=== PATIENT | female | born 1940 | race Caucasian/White ===

== ENCOUNTER 2018-12-30 09:32 | Emergency (ER) | payer MEDICARE, OTHER ==
[~2018-12-30] VITALS: Ht 152.4 cm; Wt 56.7 kg
--- OUTSIDE RECORDS SUMMARY | 2018-12-30 09:38 | XMS REPORT | Continuity of Care Document ---
Author Organization Unknown Address Unknown Phone Unavailable Allergies There is no data. Medications There is no data. Problems There is no data. Procedures There is no data. Results Test Result Range CBC - 10/04/18 14:50 WHITE BLOOD CELL COUNT 6.8 Thousand/uL 3.8-10.8 RED BLOOD CELL COUNT 3.83 Million/uL 3.80-5.10 HEMOGLOBIN 11.7 g/dL 11.7-15.5 HEMATOCRIT 35.4 % 35.0-45.0 MCV 92.4 fL 80.0-100.0 MCH 30.5 pg 27.0-33.0 MCHC 33.1 g/dL 32.0-36.0 RDW 13.2 % 11.0-15.0 PLATELET COUNT 257 Thousand/uL 140-400 MPV 10.6 fL 7.5-12.5 ABSOLUTE NEUTROPHILS 3570 cells/uL 2308-4478 ABSOLUTE LYMPHOCYTES 2244 cells/uL 850-3900 ABSOLUTE MONOCYTES 646 cells/uL 200-950 ABSOLUTE EOSINOPHILS 272 cells/uL 15-500 ABSOLUTE BASOPHILS 68 cells/uL 0-200 NEUTROPHILS 52.5 % NRG LYMPHOCYTES 33.0 % NRG MONOCYTES 9.5 % NRG EOSINOPHILS 4.0 % NRG BASOPHILS 1.0 % NRG A1C - 10/27/18 08:11 HEMOGLOBIN A1c 5.8 % of total Hgb <5.7 CMP - 12/13/18 11:07 GLUCOSE 95 mg/dL 65-99 UREA NITROGEN (BUN) 29 mg/dL 7-25 CREATININE 1.13 mg/dL 0.60-0.93 eGFR NON-AFR. BRITISH 47 mL/min/1.73m2 > OR=60 eGFR 55 mL/min/1.73m2 > OR=60 BUN/CREATININE RATIO 26 (calc) 6-22 SODIUM 139 mmol/L 135-146 POTASSIUM 4.9 mmol/L 3.5-5.3 CHLORIDE 104 mmol/L 98-110 CARBON DIOXIDE 27 mmol/L 20-32 CALCIUM 9.6 mg/dL 8.6-10.4 PROTEIN, TOTAL 6.7 g/dL 6.1-8.1 ALBUMIN 4.3 g/dL 3.6-5.1 GLOBULIN 2.4 g/dL (calc) 1.9-3.7 ALBUMIN/GLOBULIN RATIO 1.8 (calc) 1.0-2.5 BILIRUBIN, TOTAL 0.4 mg/dL 0.2-1.2 ALKALINE PHOSPHATASE 102 U/L 33-130 AST 17 U/L 10-35 ALT 7 U/L 6-29 CBC - 12/13/18 11:07 WHITE BLOOD CELL COUNT 7.9 Thousand/uL 3.8-10.8 RED BLOOD CELL COUNT 3.63 Million/uL 3.80-5.10 HEMOGLOBIN 11.0 g/dL 11.7-15.5 HEMATOCRIT 33.9 % 35.0-45.0 MCV 93.4 fL 80.0-100.0 MCH 30.3 pg 27.0-33.0 MCHC 32.4 g/dL 32.0-36.0 RDW 13.4 % 11.0-15.0 PLATELET COUNT 243 Thousand/uL 140-400 MPV 10.2 fL 7.5-12.5 ABSOLUTE NEUTROPHILS 3681 cells/uL 2664-6714 ABSOLUTE LYMPHOCYTES 2994 cells/uL 850-3900 ABSOLUTE MONOCYTES 735 cells/uL 200-950 ABSOLUTE EOSINOPHILS 411 cells/uL 15-500 ABSOLUTE BASOPHILS 79 cells/uL 0-200 NEUTROPHILS 46.6 % NRG LYMPHOCYTES 37.9 % NRG MONOCYTES 9.3 % NRG EOSINOPHILS 5.2 % NRG BASOPHILS 1.0 % NRG Encounters ACCT No. Visit Date/Time Discharge Status Pt. Type Provider Facility Loc./Unit Complaint [id number] 12/28/2018 14:00:00 ACT Outpatient SELF, RY Rosario [facility] [id number] 12/13/2018 10:00:00 Document Registration [id number] 10/27/2018 08:00:00 Document Registration [id number] 10/04/2018 14:00:00 Document Registration
[2018-12-30 10:54] LABS: ALANINE AMINOTRANSFERASE 7 U/L (0-55); ALKALINE PHOSPHATASE 106 U/L (40-136); BILIRUBIN,TOTAL 0.3 MG/DL (0.1-1.0); BUN/CREATININE RATIO 15; CALCIUM 8.9 MG/DL (8.5-10.1); CARBON DIOXIDE 22 MMOL/L (21-32); CHLORIDE 103 MMOL/L (98-107); CREATININE SERUM 1.01 MG/DL (0.60-1.30); GFR ESTIMATED 53; GLUCOSE 129 MG/DL (70-105); POTASSIUM 4.2 MMOL/L (3.6-5.0); SODIUM 141 MMOL/L (135-145)
[2018-12-30 10:55] LABS: ALBUMIN 3.8 GM/DL (3.2-4.5); TOTAL PROTEIN 6.5 GM/DL (6.4-8.2)
--- NOTE | 2018-12-30 10:59 | Diagnostic Imaging Report ---
Patient History: Chest pain. Technique: Two views of the chest Comparison: None FINDINGS: The lung volumes are normal. No focal consolidation is seen. No large pleural effusion or pneumothorax is seen. The cardiomediastinal silhouette is normal in size and contour. There is calcified aortic atherosclerotic plaque. No acute osseous abnormality is seen. Prior kyphoplasty changes are seen in the lower thoracic spine. IMPRESSION: No acute pulmonary abnormality seen. Dictated by: Dictated on workstation # [id number]
[2018-12-30] MEDS ORDERED: morphine INJ 10 MG/ML 1ML (SYR OR VIAL) IM STA (11:58)
[2018-12-30] MEDS ORDERED: NITROGLYCERIN 0.4 MG SL TABS BTL 25'S SL ONE (12:00)
[2018-12-30] MEDS ORDERED: ASPIRIN 81 MG CHEW (CHILDREN'S ASA) PO ONE ×2 (12:00→13:00)
--- NOTE | 2018-12-30 12:48 | ED Chest Pain ---
General Chief Complaint: Chest Pain Stated Complaint: CHEST PAIN Nursing Triage Note: Has had chest pain for past two days that radiates into back. Is currently rated at 7/10 and is worse with laying down. States it has been fairly constant for the past two days but varies in intensity. Has hx of hiatal hernia and TN. Had heart cath last summer but only had 50% blockage and was not stented. 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 Nursing Sepsis Screen: No Definite Risk Source: patient History of Present Illness Date Seen by Provider: Dec 30, 2018 Time Seen by Provider: 11:15 Initial Comments The patient is a 78-year-old white female who presents with a chief complaint of central chest pain. She reported that this pain came on this morning on arising between 0800 and 0830. She relates that she has been having pains over the last 2 days but this seemed more severe. She reports that she had a heart attack last summer. She was evaluated in [place] and [facility] The blockages were reported at less than 50 percent and no interventions were made. She is currently taking a beta stacy, carvedilol, at a low dose and losartan as a statin.. She reports that she has GERD which has been controlled with Prevacid. She also stated that she had been having a degree of pain for at least 2 days but today's episode seemed stronger. There has been no diaphoresis or sense of palpitations. Timing/Duration: 1-2 days Severity/Quality: mild, moderate Location: central Radiation: back Activities at Onset: none Prior CP/Workup: cardiac cath Associated Symptoms: denies symptoms Allergies and Home Medications Allergies Coded Allergies: No Known Drug Allergies (Unverified , 12/30/18) Patient Home Medication List Home Medication List Reviewed: Yes Review of Systems Review of Systems Constitutional: see HPI EENTM: No Symptoms Reported Respiratory: No Symptoms Reported Cardiovascular: See HPI Gastrointestinal: Other (GERD) Genitourinary: No Symptoms Reported Musculoskeletal: no symptoms reported Skin: no symptoms reported Psychiatric/Neurological: No Symptoms Reported Endocrine: No Symptoms Reported Hematologic/Lymphatic: No Symptoms Reported Past Jomshaj-Xyjimh-Zpsbjv Hx Patient Social History Alcohol Use: Denies Use Recreational Drug Use: No Smoking Status: Former Smoker Type Used: Cigarettes Former Smoker, Quit: Dec 29, 1998 2nd Hand Smoke Exposure: No Recent Foreign Travel: No Contact w/Someone Who Travel: No Recent Infectious Disease Expo: No Recent Hopitalizations: No Physical Abuse: No Sexual Abuse: No Mistreated: No Fear: No Seasonal Allergies Seasonal Allergies: No Past Medical History Surgeries: Yes (heart cath; back surgery) Orthopedic Respiratory: No Cardiac: Yes ("broken heart syndrome") Heart Attack, Hypertension Neurological: No Genitourinary: No Gastrointestinal: Yes Hiatal Hernia Musculoskeletal: Yes Fibromyalgia, Back Injury Endocrine: Yes (states she is no longer diabetic) Diabetes, Non-Insulin dep HEENT: No Cancer: No Psychosocial: No Integumentary: No Blood Disorders: No Adverse Reaction/Blood Tranf: No Physical Exam Vital Signs Vital Signs - First Documented 12/30/18 09:35 Temp 97.8 Pulse 51 Resp 20 B/P (MAP) 140/65 (90) Pulse Ox 98 Capillary Refill : Less Than 3 Seconds Height, Weight, BMI Height: 5'0" Weight: 125lbs. oz. [id number]; BMI Method:Stated General Appearance: Anxious HEENT: Normal ENT Inspection Neck: Full Range of Motion, Normal Inspection, Non Tender Respiratory: Chest Non Tender, Lungs Clear, Normal Breath Sounds, No Accessory Muscle Use, No Respiratory Distress Cardiovascular: Regular Rate, Rhythm, No Edema, No Gallop, No JVD, No Murmur, Normal Peripheral Pulses Gastrointestinal: Normal Bowel Sounds, No Organomegaly, No Pulsatile Mass, Non Tender Extremity: Normal Capillary Refill, Normal Inspection, Normal Range of Motion, Non Tender, No Calf Tenderness, No Pedal Edema Neurologic/Psychiatric: Alert, Oriented x3, No Motor/Sensory Deficits, Normal Mood/Affect Skin: Normal Color, Warm/Dry Lymphatic: No Adenopathy Progress/Results/Core Measures Results/Orders Lab Results Laboratory Tests Test 12/30/18 10:25 12/30/18 14:21 Range/Units Sodium Level 141 135-145 MMOL/L Potassium Level 4.2 3.6-5.0 MMOL/L Chloride Level 103 98-107 MMOL/L Carbon Dioxide Level 22 21-32 MMOL/L Anion Gap 16 H 5-14 MMOL/L Blood Urea Nitrogen 15 7-18 MG/DL Creatinine 1.01 0.60-1.30 MG/DL Estimat Glomerular Filtration Rate 53 BUN/Creatinine Ratio 15 Glucose Level 129 H 70-105 MG/DL Calcium Level 8.9 8.5-10.1 MG/DL Corrected Calcium 9.1 8.5-10.1 MG/DL Total Bilirubin 0.3 0.1-1.0 MG/DL Aspartate Amino Transf (AST/SGOT) 19 5-34 U/L Alanine Aminotransferase (ALT/SGPT) 7 0-55 U/L Alkaline Phosphatase 106 40-136 U/L Troponin I < 0.30 < 0.30 <0.30 NG/ML Total Protein 6.5 6.4-8.2 GM/DL Albumin 3.8 3.2-4.5 GM/DL White Blood Count 5.8 4.3-11.0 10^3/uL Red Blood Count 3.20 L 4.35-5.85 10^6/uL Hemoglobin 10.0 L 11.5-16.0 G/DL Hematocrit 31 L 35-52 % Mean Corpuscular Volume 96 80-99 FL Mean Corpuscular Hemoglobin 31 25-34 PG Mean Corpuscular Hemoglobin Concent 33 32-36 G/DL Red Cell Distribution Width 13.9 10.0-14.5 % Platelet Count 244 130-400 10^3/uL Mean Platelet Volume 9.7 7.4-10.4 FL Neutrophils (%) (Auto) 45 42-75 % Lymphocytes (%) (Auto) 36 12-44 % Monocytes (%) (Auto) 11 0-12 % Eosinophils (%) (Auto) 7 0-10 % Basophils (%) (Auto) 1 0-10 % Neutrophils # (Auto) 2.6 1.8-7.8 X 10^3 Lymphocytes # (Auto) 2.1 1.0-4.0 X 10^3 Monocytes # (Auto) 0.6 0.0-1.0 X 10^3 Eosinophils # (Auto) 0.4 H 0.0-0.3 10^3/uL Basophils # (Auto) 0.1 0.0-0.1 10^3/uL Prothrombin Time 13.4 12.2-14.7 SEC INR Comment 1.0 0.8-1.4 My Orders Orders - DIANNE KENT MD Aspirin Chewable Tablet (Baby Aspirin Ch (12/30/18 12:00) Nitroglycerin 0.4 Mg Btl 25's (Nitrostat (12/30/18 12:00) Morphine Injection (Morphine Injection (12/30/18 11:58) Troponin I (12/30/18 12:07) Aspirin Chewable Tablet (Baby Aspirin Ch (12/30/18 13:00) Medications Given in ED Current Medications Medications Dose Ordered Sig/Eloy Route Start Time Stop Time Status Last Admin Dose Admin Aspirin 324 mg ONCE ONCE PO 12/30/18 13:00 12/30/18 13:01 DC 12/30/18 12:51 324 MG Nitroglycerin 1 BOTTLE ONCE ONCE SL 12/30/18 12:00 12/30/18 12:02 DC 12/30/18 12:51 0.4 MG Vital Signs/I&O 12/30/18 09:35 Temp 97.8 Pulse 51 Resp 20 B/P (MAP) 140/65 (90) Pulse Ox 98 Blood Pressure Mean: 90 Departure Communication (Admissions) 1159: Spoke to Dr. Peterson at [facility]. The patient's symptoms and findings were discussed. We elected to perform a four-hour troponin which is now returned and is still negative. The patient is pain-free at this moment. Accordingly he will agree to see her Wednesday in the office in follow-up. Impression Primary Impression: chest pain/non-myocardial Disposition: 01 HOME, SELF-CARE Condition: Improved Departure-Patient Inst. Referrals: SELFRY MD (PCP/Family) Primary Care Physician Patient Instructions: Chest Pain That Is Not Caused by the Heart (DC) Add. Discharge Instructions: All discharge instructions reviewed with patient and/or family. Voiced understand If symptoms increase return to the emergency room for reevaluation. Dr. Peterson a elevator constructor supervisor in [place] has agreed to see you in outpatient follow-up. He would ask that you call the office Wednesday for a Wednesday appointment. The cardiology office phone number is [phone] Take an 81 mg aspirin each morning. DIANNE KENT MD Dec 30, 2018 12:48
[2018-12-30 15:10] LABS: PROTHROMBIN TIME PATIENT 13.4 SEC (12.2-14.7)
[2018-12-30 15:16] LABS: HEMATOCRIT 31 % (35-52); MEAN CORPUSCULAR HEMOGLOBIN 31 PG (25-34); MEAN CORPUSCULAR HGB CONC 33 G/DL (32-36); MEAN CORPUSCULAR VOLUME 96 FL (80-99); MEAN PLATELET VOLUME 9.7 FL (7.4-10.4); NEUTROPHILS % (AUTO) 45 % (42-75); PLATELET COUNT 244 10^3/uL (130-400); RED CELL DISTRIBUTION WIDTH 13.9 % (10.0-14.5); WHITE BLOOD COUNT 5.8 10^3/uL (4.3-11.0)
[2018-12-30 15:17] LABS: BASOPHILS # (AUTO) 0.1 10^3/uL (0.0-0.1); BASOPHILS % (AUTO) 1 % (0-10); EOSINOPHILS # (AUTO) 0.4 10^3/uL (0.0-0.3); EOSINOPHILS % (AUTO) 7 % (0-10); LYMPHOCYTES # (AUTO) 2.1 X 10^3 (1.0-4.0); LYMPHOCYTES % (AUTO) 36 % (12-44); MONOCYTES # (AUTO) 0.6 X 10^3 (0.0-1.0); MONOCYTES % (AUTO) 11 % (0-12); NEUTROPHILS # (AUTO) 2.6 X 10^3 (1.8-7.8)
[2018-12-30 16:22] VITALS: BP 144/69
== END 2018-12-30 16:22 | disposition home or self-care (01) ==
LOC: ER FS 09:35
DX: R07.89 Other chest pain (principal); I10 Essential (primary) hypertension; E11.9 Type 2 diabetes mellitus without complications; I25.2 Old myocardial infarction; K21.9 Gastro-esophageal reflux disease without esophagitis; M79.7 Fibromyalgia; Z87.891 Personal history of nicotine dependence; Z95.9 Presence of cardiac and vascular implant and graft, unspecified
CPT/HCPCS: 36415; 71046; 80053; 84484; 85025; 85610; 93005; 96372

== ENCOUNTER 2019-05-10 10:27 | Observation (INO) | payer MEDICARE, OTHER ==
[~2019-05-10] VITALS: Ht 152.4 cm; Wt 63.0 kg
[2019-05-10] MEDS ORDERED: KETOROLAC 15 MG/ML VIAL IVP ONE (10:45)
[2019-05-10] MEDS ORDERED: fentaNYL INJECTION 100 MCG/2 ML AMP IVP ONE (10:45)
[2019-05-10] MEDS ORDERED: ONDANSETRON 4 MG/2 ML (SDV) Z0FRAN IVP ONE (10:45)
[2019-05-10] MEDS ORDERED: ASPIRIN 81 MG CHEW (CHILDREN'S ASA) PO ONE (10:45)
--- NOTE | 2019-05-10 10:54 | ED General ---
General Chief Complaint: Chest Pain Stated Complaint: CHEST PAIN; RAMAN ARM PAIN History of Present Illness Date Seen by Provider: May 10, 2019 Time Seen by Provider: 10:51 Initial Comments Patient presenting to emergency department for evaluation of chest pain that she says has been going on for 5 or 6 days. She describes it as a tightness in her chest that she initially said it comes and goes have her then she said it was constant. She says it is tightness across her bilateral lower chest and gets worse when she is up moving around or exerting herself and that I asked her if it gets better when she stops exerting herself and sits down and rests and she said no it still persists but maybe get slightly better so then she told me it was constant rather than comes and goes type pain. The pain radiates down her left arm and is not associated with any nausea vomiting shortness of breath or diaphoresis. She says she has no cough and it does not feel like a cold or viral syndrome. Patient says she is also having a pounding headache. She denies any weakness numbness tingling vision changes or other neurologic complaints. She says that she takes heart pills but does not know she has hypertension diabetes or high cholesterol. She says that she was diagnosed with a heart attack one year ago but on further questioning it sounds as if she had a broken heart syndrome and she had a heart catheterization done that showed a maximum of 50% occlusion and she required no stents. She is in no obvious distress with normal vital signs. Allergies and Home Medications Allergies Coded Allergies: No Known Drug Allergies (Unverified , 12/30/18) Patient Home Medication List Home Medication List Reviewed: Yes Review of Systems Review of Systems Constitutional: no symptoms reported EENTM: no symptoms reported Respiratory: no symptoms reported Cardiovascular: chest pain Gastrointestinal: no symptoms reported Genitourinary: no symptoms reported Musculoskeletal: no symptoms reported Skin: no symptoms reported Psychiatric/Neurological: Headache All Other Systems Reviewed Negative Unless Noted: Yes Past Shxtclu-Ehnmcm-Aalgxx Hx Patient Social History Type Used: Cigarettes Former Smoker, Quit: Dec 29, 1998 2nd Hand Smoke Exposure: No Recent Foreign Travel: No Recent Hopitalizations: No Seasonal Allergies Seasonal Allergies: No Past Medical History Surgeries: Yes (heart cath; back surgery) Orthopedic Respiratory: No Cardiac: Yes ("broken heart syndrome") Heart Attack, Hypertension Neurological: No Genitourinary: No Gastrointestinal: Yes Hiatal Hernia Musculoskeletal: Yes Fibromyalgia, Back Injury Endocrine: Yes (states she is no longer diabetic) Diabetes, Non-Insulin dep HEENT: No Cancer: No Psychosocial: No Integumentary: No Blood Disorders: No Adverse Reaction/Blood Tranf: No Physical Exam Vital Signs Vital Signs - First Documented Capillary Refill : Height, Weight, BMI Height: 5'0" Weight: 125lbs. oz. 56.861255ef; BMI Method:Stated General Appearance: No Apparent Distress, WD/WN Eyes: Bilateral Eye Normal Inspection HEENT: PERRL/EOMI Neck: Supple Respiratory: Lungs Clear, No Respiratory Distress Cardiovascular: Regular Rate, Rhythm Gastrointestinal: Non Tender, Soft Back: Normal Inspection Extremity: No Pedal Edema Neurologic/Psychiatric: Alert, Oriented x3, No Motor/Sensory Deficits Skin: Warm/Dry Progress/Results/Core Measures Suspected Sepsis SIRS Temperature: Pulse: Respiratory Rate: Laboratory Tests 05/10/19 10:30: White Blood Count 9.0 Blood Pressure / Mean: Laboratory Tests 05/10/19 10:30: Creatinine 0.81, INR Comment 0.9, Platelet Count 271, Total Bilirubin 0.4 Results/Orders Lab Results Laboratory Tests Test 05/10/19 10:30 05/10/19 11:05 Range/Units White Blood Count 9.0 4.3-11.0 10^3/uL Red Blood Count 3.73 L 4.35-5.85 10^6/uL Hemoglobin 11.4 L 11.5-16.0 G/DL Hematocrit 36 35-52 % Mean Corpuscular Volume 96 80-99 FL Mean Corpuscular Hemoglobin 31 25-34 PG Mean Corpuscular Hemoglobin Concent 32 32-36 G/DL Red Cell Distribution Width 12.8 10.0-14.5 % Platelet Count 271 130-400 10^3/uL Mean Platelet Volume 9.5 7.4-10.4 FL Neutrophils (%) (Auto) 62 42-75 % Lymphocytes (%) (Auto) 26 12-44 % Monocytes (%) (Auto) 8 0-12 % Eosinophils (%) (Auto) 3 0-10 % Basophils (%) (Auto) 1 0-10 % Neutrophils # (Auto) 5.6 1.8-7.8 X 10^3 Lymphocytes # (Auto) 2.4 1.0-4.0 X 10^3 Monocytes # (Auto) 0.7 0.0-1.0 X 10^3 Eosinophils # (Auto) 0.3 0.0-0.3 10^3/uL Basophils # (Auto) 0.1 0.0-0.1 10^3/uL Prothrombin Time 12.6 12.2-14.7 SEC INR Comment 0.9 0.8-1.4 Activated Partial Thromboplast Time 25 24-35 SEC D-Dimer 0.30 0.00-0.49 UG/ML Sodium Level 138 135-145 MMOL/L Potassium Level 4.5 3.6-5.0 MMOL/L Chloride Level 101 98-107 MMOL/L Carbon Dioxide Level 26 21-32 MMOL/L Anion Gap 11 5-14 MMOL/L Blood Urea Nitrogen 15 7-18 MG/DL Creatinine 0.81 0.60-1.30 MG/DL Estimat Glomerular Filtration Rate > 60 BUN/Creatinine Ratio 19 Glucose Level 155 H 70-105 MG/DL Calcium Level 9.3 8.5-10.1 MG/DL Corrected Calcium 9.0 8.5-10.1 MG/DL Magnesium Level 1.6 1.6-2.4 MG/DL Total Bilirubin 0.4 0.1-1.0 MG/DL Aspartate Amino Transf (AST/SGOT) 15 5-34 U/L Alanine Aminotransferase (ALT/SGPT) 8 0-55 U/L Alkaline Phosphatase 112 40-136 U/L Troponin I < 0.30 <0.30 NG/ML Pro-B-Type Natriuretic Peptide 1135.0 H <75.0 PG/ML Total Protein 7.2 6.4-8.2 GM/DL Albumin 4.4 3.2-4.5 GM/DL Lipase 22 8-78 U/L Urine Color DARK YELLOW Urine Clarity CLEAR Urine pH 5.5 5-9 Urine Specific [place] 1.025 H 1.016-1.022 Urine Protein NEGATIVE NEGATIVE Urine Glucose (UA) NEGATIVE NEGATIVE Urine Ketones NEGATIVE NEGATIVE Urine Nitrite NEGATIVE NEGATIVE Urine Bilirubin NEGATIVE NEGATIVE Urine Urobilinogen 0.2 < = 1.0 MG/DL Urine Leukocyte Esterase TRACE H NEGATIVE Urine RBC (Auto) NEGATIVE NEGATIVE Urine RBC NONE /HPF Urine WBC 10-25 H /HPF Urine Squamous Epithelial Cells 2-5 /HPF Urine Crystals NONE /LPF Urine Bacteria FEW H /HPF Urine Casts PRESENT /LPF Urine Hyaline Casts 10-25 H /LPF Urine Mucus MODERATE H /LPF Urine Culture Indicated YES My Orders Orders - CARLOS TRAORE DO Cbc With Automated Diff (05/10/19 10:35) Comprehensive Metabolic Panel (05/10/19 10:35) Fibrin Degradation Products (05/10/19 10:35) Ekg Tracing (05/10/19 10:35) Chest 1 View Ap/Pa Only (05/10/19 10:35) Lipase (05/10/19 10:35) Magnesium (05/10/19 10:35) Partial Thromboplastin Time (05/10/19 10:35) Probnp Fs (05/10/19 10:35) Protime With Inr (05/10/19 10:35) Troponin I Fs (05/10/19 10:35) Ua Culture If Indicated (05/10/19 10:35) Aspirin Chewable Tablet (Baby Aspirin Ch (05/10/19 10:45) Ondansetron Injection (Zofran Injectio (05/10/19 10:45) Ketorolac Injection (Toradol Injection) (05/10/19 10:45) Fentanyl Injection (Sublimaze Injection (05/10/19 10:45) Ct Head/Cervical Spine Wo (05/10/19 10:35) Urine Culture (05/10/19 11:05) Albuterol/Ipra Inhalation Soln (Duoneb I (05/10/19 11:45) Svn Small Volume Nebulizer (05/10/19 11:31) Lorazepam Injection (Ativan Injection) (05/10/19 11:45) Medications Given in ED Current Medications Medications Dose Ordered Sig/Eloy Route Start Time Stop Time Status Last Admin Dose Admin Albuterol/ Ipratropium 3 ml ONCE ONCE INH 05/10/19 11:45 05/10/19 11:46 DC 05/10/19 11:49 3 ML Aspirin 324 mg ONCE ONCE PO 05/10/19 10:45 05/10/19 10:46 DC 05/10/19 11:03 324 MG Fentanyl Citrate 50 mcg ONCE ONCE IVP 05/10/19 10:45 05/10/19 10:46 DC 05/10/19 11:02 50 MCG Ketorolac Tromethamine 15 mg ONCE ONCE IVP 05/10/19 10:45 05/10/19 10:46 DC 05/10/19 11:03 15 MG Lorazepam 0.5 mg ONCE ONCE IVP 05/10/19 11:45 05/10/19 11:46 DC 05/10/19 11:49 0.5 MG Ondansetron HCl 4 mg ONCE ONCE IVP 05/10/19 10:45 05/10/19 10:46 DC 05/10/19 11:03 4 MG Vital Signs/I&O 05/10/19 05/10/19 05/10/19 10:27 10:27 11:03 Temp 36.0 36.0 Pulse 54 Resp 17 B/P (MAP) 155/54 (87) Pulse Ox 98 O2 Delivery Room Air Room Air Capillary Refill : Progress Note : Progress Note Patient's with nonspecific chest pain and headache. I will check labs imaging treat symptoms and reassess. Patient's head CT was negative but her cervical spine does show degenerative disc disease and this is likely causing her left arm pain in my opinion. Chest pain is lower likelihood to be ACS however she does have a heart score equal to 4 which puts her in a moderate risk category. She has an elevated BNP as well with no prior comparison available. Patient says that her pain has persisted and may be worsened in her chest. I will try giving her a breathing treatment and Ativan to see if this improves her pain. Given she has intractable pain I spoke to Dr. Hill on the phone and she is going to admit patient for observation. I paged Dr. Dahl and am waiting for a page back to let him know she is on her way. An echocardiogram has been ordered. Departure Impression Primary Impression: Chest pain on exertion Additional Impressions: Elevated brain natriuretic peptide (BNP) level Headache Disposition: ADMITTED INPATIENT Condition: Stable Departure-Patient Inst. Referrals: SELF,RY TOLEDO (PCP/Family) Primary Care Physician CARLOS TRAORE DO May 10, 2019 10:54 POS
[2019-05-10 10:55] LABS: BASOPHILS % (AUTO) 1 % (0-10); EOSINOPHILS % (AUTO) 3 % (0-10); HEMATOCRIT 36 % (35-52); HEMOGLOBIN 11.4 G/DL (11.5-16.0); LYMPHOCYTES % (AUTO) 26 % (12-44); MEAN CORPUSCULAR HEMOGLOBIN 31 PG (25-34); MEAN CORPUSCULAR HGB CONC 32 G/DL (32-36); MEAN CORPUSCULAR VOLUME 96 FL (80-99); MEAN PLATELET VOLUME 9.5 FL (7.4-10.4); MONOCYTES % (AUTO) 8 % (0-12); PLATELET COUNT 271 10^3/uL (130-400); RED CELL DISTRIBUTION WIDTH 12.8 % (10.0-14.5)
[2019-05-10 10:56] LABS: NEUTROPHILS % (AUTO) 62 % (42-75)
[2019-05-10 10:58] LABS: BASOPHILS # (AUTO) 0.1 10^3/uL (0.0-0.1); EOSINOPHILS # (AUTO) 0.3 10^3/uL (0.0-0.3); LYMPHOCYTES # (AUTO) 2.4 X 10^3 (1.0-4.0); MONOCYTES # (AUTO) 0.7 X 10^3 (0.0-1.0); NEUTROPHILS # (AUTO) 5.6 X 10^3 (1.8-7.8)
--- NOTE | 2019-05-10 11:10 | Diagnostic Imaging Report ---
PROCEDURE: CT head and CT cervical spine without contrast. TECHNIQUE: Multiple contiguous axial images were obtained through the brain and cervical spine without the use of intravenous contrast. Sagittal and coronal reformations through the cervical spine were then performed. Auto Exposure Controls were utilized during the CT exam to meet ALARA standards for radiation dose reduction. INDICATION: Headache for 5 days. COMPARISON: None. FINDINGS: CT head: The ventricles and cortical sulci are age-appropriate. There is no midline shift or mass-effect. No acute intracranial hemorrhage is seen. There is no CT evidence of acute territorial ischemia. Scattered chronic microvascular disease is seen in the periventricular and subcortical white matter. No focal masses or collections are present. The calvarium is intact. The visualized paranasal sinuses are clear. CT cervical spine: No acute fracture or dislocation is seen in the cervical spine. No focal osseous lesions. There is reversal of the normal lordotic curvature, the cervical spine centered at the C4 level. Vertebral body heights are well-maintained. The craniocervical junction is well-maintained. Moderate to severe degenerative changes are seen in the cervical spine with disc osteophyte complexes and uncovertebral arthropathy. Soft tissues of the neck are unremarkable. IMPRESSION: 1. No hemorrhage or focal intra-axial mass. No CT evidence of large acute territorial ischemia. 2. No acute fracture or dislocation in the cervical spine. 3. Chronic microvascular disease in the periventricular and subcortical white matter. 4. Moderate to severe degenerative changes in the cervical spine with reversal of the normal lordotic curvature of the cervical spine centered at the C4 level. This results in at least moderate spinal canal stenosis at C4-C5 and C5-C6. Consider MRI of the cervical spine without contrast noted on a outpatient basis to further evaluate. Dictated by: Dictated on workstation # [id number]
[2019-05-10 11:14] LABS: ALKALINE PHOSPHATASE 112 U/L (40-136); BILIRUBIN,TOTAL 0.4 MG/DL (0.1-1.0); BUN/CREATININE RATIO 19; CALCIUM 9.3 MG/DL (8.5-10.1); CARBON DIOXIDE 26 MMOL/L (21-32); CHLORIDE 101 MMOL/L (98-107); CREATININE SERUM 0.81 MG/DL (0.60-1.30); GFR ESTIMATED > 60; GLUCOSE 155 MG/DL (70-105); MAGNESIUM 1.6 MG/DL (1.6-2.4); POTASSIUM 4.5 MMOL/L (3.6-5.0); SODIUM 138 MMOL/L (135-145)
[2019-05-10 11:15] LABS: ALANINE AMINOTRANSFERASE 8 U/L (0-55); ALBUMIN 4.4 GM/DL (3.2-4.5); TOTAL PROTEIN 7.2 GM/DL (6.4-8.2)
[2019-05-10 11:16] LABS: FIBRIN DEGRADATION PRODUCTS 0.3 UG/ML (0.00-0.49); INR 0.9 (0.8-1.4); PROTHROMBIN TIME PATIENT 12.6 SEC (12.2-14.7)
[2019-05-10 11:17] LABS: LIPASE 22 U/L (8-78)
[2019-05-10 11:17] LABS: CLARITY,URINE CLEAR; COLOR,URINE DARK YELLOW; GLUCOSE, URINE (UA) NEGATIVE (NEGATIVE); KETONES,URINE NEGATIVE (NEGATIVE); PH,URINE 5.5 (5-9); PROTEIN,URINE NEGATIVE (NEGATIVE)
[2019-05-10 11:18] LABS: BILIRUBIN,URINE NEGATIVE (NEGATIVE); NITRITE,URINE NEGATIVE (NEGATIVE)
[2019-05-10 11:23] LABS: LEUKOCYTE ESTERASE ,URINE TRACE (NEGATIVE)
[2019-05-10 11:24] LABS: BACTERIA,URINE FEW /HPF
--- NOTE | 2019-05-10 11:42 | Diagnostic Imaging Report ---
EXAMINATION: Chest 1 view. HISTORY: Chest pain for five days. COMPARISON: 12/30/2018. FINDINGS: The lung volumes are normal. No focal consolidation is seen. No large pleural effusion or pneumothorax is seen. The cardiomediastinal silhouette is enlarged. No acute osseous abnormality is seen. IMPRESSION: 1. Stable cardiomegaly. No overt pulmonary edema. Dictated by: Dictated on workstation # [id number]
[2019-05-10] MEDS ORDERED: LORazepam INJ 2 MG/ML (ATIVAN) VIAL IVP ONE (11:45)
[2019-05-10] MEDS ORDERED: RT-ALBUTEROL/IPRATROPIUM 3 ML (DUONEB) VIAL INH ONE (11:45)
--- NOTE | 2019-05-10 14:00 | NUR ---
LUIS ROJAS admitted to room 417-1, with an admitting diagnosis of CP, on 05/10/19 from [facility] via stretcher, accompanied by EMS .LUIS ROJAS introduced to surroundings, call light, bed controls, phone, TV, temperature control, lights, meal times, smoking policy, visitor policy, side rail policy, bathrooms and showers. Patient Rights given to patient in the handbook. LUIS ROJAS verbalizes understanding that [facility] is not responsible for the loss or damage to any personal effects or valuables that are kept in the patients posession during their hospitalization. LUIS ROJAS verbalizes understanding of Interdisciplinary Patient Education. Patient and/or family were informed about the Rapid Response Team and its purpose.
[2019-05-10 14:18] VITALS: BP 182/98
[2019-05-10] MEDS ORDERED: CATHETER FLUSH 10 ML SYR IV PRN (14:45)
[2019-05-10] MEDS ORDERED: FOLI0.4T2 PO (15:30)
[2019-05-10] MEDS ORDERED: CELE-63 PO (15:30)
[2019-05-10] MEDS ORDERED: CARV6.252 PO (15:30)
[2019-05-10] MEDS ORDERED: OXYC-464 PO (15:30)
[2019-05-10] MEDS ORDERED: LOSA25TA41 PO (15:30)
[2019-05-10] MEDS ORDERED: METF-397 PO (15:30)
[2019-05-10] MEDS ORDERED: ATOR40TA70 PO (15:30)
[2019-05-10] MEDS ORDERED: OMEP20TA7 PO (15:30)
[2019-05-10] MEDS ORDERED: FERR-84 PO (15:30)
[2019-05-10] MEDS ORDERED: LEVO100T7 PO (15:30)
[2019-05-10] MEDS ORDERED: GABA-488 PO (15:30)
[2019-05-10] MEDS ORDERED: ASPI-983 PO (15:30)
[2019-05-10] MEDS ORDERED: CYAN250010 PO (15:30)
--- NOTE | 2019-05-10 15:52 | NUR ---
SPOKE WITH PT (SHE HAD ALL HER BOTTLES) WELL GOING THRU THE EXT MED HIST TO COMPLETE THE MED REC. PT WAS ABLE TO TELL ME HOW/WHEN SHE TAKES ALL HER MEDS- THESE MATCHED THE BOTTLES AND FILL DATES ON THE EXT MED HISTORY. THE ONLY MED NOT ON THE EXT MED HISTORY IS LEVOTHYROXINE AND IT WAS FILLED 05-03-2019. CELEBREX: PT QUIT TAKING FOR A SHORT TIME, AND RECENTLY DECIDED TO START TAKING AGAIN. SHE HAS NOT DECIDED IF SHE IS GOING TO CONTINUE TO TAKE OR NOT. OTC MEDS: ASPIRIN IRON B-12 FOLIC ACID OMEPRAZOLE Addendum: 05/10/19 at 1557 by MICH KELLEY [facility] ALSO-PT BROUGHT IN A LARGE CONTAINER WITH ALL HER MEDICATIONS- SHE SAYS SHE DOES NOT TAKE THEM ALL- ALL THE ONES FROM [facility] (GREEN BOTTLES) AND THE ONES IN THE ZIP LOCK BAG. ALL OTHERS IN THE BOTTOM SHE SAYS THOSE ARE NOT ACTIVE MEDS.
[2019-05-10 16:38] VITALS: BP 136/77
[2019-05-10] MEDS ORDERED: KETOROLAC 30 MG/ML VIAL IVP PRN (17:30)
[2019-05-10] MEDS ORDERED: LIDOCAINE/ANTACID/DIPHENHYDRAMINE 1:1:1 PO PRN (17:30)
[2019-05-10] MEDS ORDERED: VISC LIDOCAINE/ANTACID/DIPHENHYDRAMINE 1:1:1 120 ML PO PRN ×3 (17:45)
[2019-05-10 20:39] VITALS: BP 144/78
[2019-05-10] MEDS: CATHETER FLUSH 10 ML SYR IV SCH (23:23)
[2019-05-10 23:37] VITALS: BP 148/77
[2019-05-11 03:13] VITALS: BP 134/68
[2019-05-11] MEDS: CATHETER FLUSH 10 ML SYR IV SCH ×3 (06:43→22:05)
[2019-05-11 07:16] LABS: BASOPHILS % (AUTO) 1 % (0-10); EOSINOPHILS # (AUTO) 0.3 10^3/uL (0.0-0.3); EOSINOPHILS % (AUTO) 4 % (0-10); HEMATOCRIT 33 % (35-52); HEMOGLOBIN 10.7 G/DL (11.5-16.0); LYMPHOCYTES % (AUTO) 27 % (12-44); MEAN CORPUSCULAR HEMOGLOBIN 31 PG (25-34); MEAN CORPUSCULAR HGB CONC 32 G/DL (32-36); MEAN CORPUSCULAR VOLUME 96 FL (80-99); MEAN PLATELET VOLUME 10.3 FL (7.4-10.4); MONOCYTES # (AUTO) 0.7 X 10^3 (0.0-1.0); MONOCYTES % (AUTO) 10 % (0-12); NEUTROPHILS # (AUTO) 4.4 X 10^3 (1.8-7.8); NEUTROPHILS % (AUTO) 59 % (42-75); PLATELET COUNT 228 10^3/uL (130-400); RED CELL DISTRIBUTION WIDTH 12.8 % (10.0-14.5); WHITE BLOOD COUNT 7.5 10^3/uL (4.3-11.0)
[2019-05-11 07:34] LABS: ALBUMIN 3.9 GM/DL (3.2-4.5); BILIRUBIN,TOTAL 0.4 MG/DL (0.1-1.0); CALCIUM 8.7 MG/DL (8.5-10.1); CREATININE SERUM 0.97 MG/DL (0.60-1.30); POTASSIUM 4.9 MMOL/L (3.6-5.0); TOTAL PROTEIN 6.3 GM/DL (6.4-8.2)
[2019-05-11 08:00] VITALS: BP 161/82
--- NOTE | 2019-05-11 09:11 | Consultation-Cardiology ---
HPI-Cardiology Cardiology Consultation: Date of Consultation 05/11/19 Time Seen by a Provider: 09:05 Date of Admission 05-10-19 Attending Physician Lu Hill MD Admitting Physician Javier Valero MD Consulting Physician Pavel Hernandez MD HPI: Chief Complaint: Chest pain Ms. Rojas is a 79 year old female admitted to [facility] from the [facility] ED with c/o CP which has been present for the last 5-6 days. She states she has had chronic chest pressure which radiates across her chest. It is constant, but worse at times with movement. She states it is mod. She reports feeling weak, shaky with exertion. She reports aching to her left arm. She states she has been under increased stress d/t her younger brother dying from cancer. She reports she has had a headache for the last 5-6 days as well. She is reporting abdominal discomfort as well. She reports she has continued chest discomfort, but states it is mild at this time. No c/o dyspnea, palpitations, syncope, near syncope or LE swelling. She reports she follows with a separations scientist at [facility] and saw him in February 2019. She reports she has had an approx 25 lb weight loss over the last year d/t poor appetite. She denies any n/v/d. She denies any fever or chills. Review of Systems-Cardiology Review of Systems Constitutional: No chills, No fever; malaise Eyes: No vision change Ears/Nose/Throat: No epistaxis, No recent hearing loss Respiratory: As described under HPI Cardiovascular: As described under HPI Gastrointestinal: No constipation, No diarrhea, No nausea, No vomiting Genitourinary: No hematuria Musculoskeletal: back pain, muscle pain, neck pain Skin: No rash on exposed areas, No ulcerations on exposed areas Psychiatric/Neurological: anxiety, depression; No seizure, No focal weakness, No syncope Hematologic: anemia All Other Systems Reviewed Negative Unless Noted: Yes RWK-Wnlgdz-Govser Hx Patient Social History Alcohol Use: Occasionally Uses Recreational Drug Use: No Smoking Status: Former Smoker Type Used: Cigarettes 2nd Hand Smoke Exposure: No Recent Foreign Travel: No Recent Infectious Disease Expo: No Physical Abuse Screen: No Sexual Abuse: No Past Medical History PMH As described under Assessment. Family Medical History Family Medical History: She denies any family h/o CAD. Allergies and Home Medications Allergies Coded Allergies: No Known Drug Allergies (Unverified , 12/30/18) Home Medications Aspirin 81 Mg Tablet.dr, 81 MG PO DAILY, (Reported) Atorvastatin Calcium 40 Mg Tablet, 40 MG PO HS, (Reported) Carvedilol 6.25 Mg Tablet, 6.25 MG PO BID, (Reported) Celecoxib 200 Mg Capsule, 400 MG PO DAILY PRN for INFLAMMATION, (Reported) Cyanocobalamin (Vitamin B-12) 2,500 Mcg Tablet, 2,500 MCG PO HS, (Reported) Ferrous Sulfate 325 Mg Tablet, 325 MG PO HS, (Reported) Folic Acid 0.4 Mg Tablet, 0.4 MG PO HS, (Reported) Gabapentin 300 Mg Capsule, 300 MG PO TID, (Reported) Levothyroxine Sodium 100 Mcg Tablet, 100 MCG PO DAILY, (Reported) Losartan Potassium 25 Mg Tablet, 25 MG PO HS, (Reported) Metformin HCl 500 Mg Tablet, 500 MG PO BID WITH MEALS, (Reported) Omeprazole 20 Mg Tablet.dr, 20 MG PO HS, (Reported) Oxycodone HCl/Acetaminophen 1 Each Tablet, 1 TAB PO Q4H PRN for PAIN-MODERATE (5-7), (Reported) Patient Home Medication List Home Medication List Reviewed: Yes Physical Exam-Cardiology Physical Exam Vital Signs/I&O 05/11/19 05/12/19 05/12/19 05/12/19 23:20 01:00 04:20 06:47 Temp 36.7 36.5 Pulse 67 68 58 61 Resp 18 18 B/P (MAP) 110/62 (78) 145/70 (95) Pulse Ox 93 94 O2 Delivery Room Air Room Air 05/12/19 05/12/19 05/12/19 08:00 08:19 08:25 Pulse 54 88 Resp 18 18 B/P (MAP) 182/88 (119) 145/82 (103) Pulse Ox 95 95 O2 Delivery Room Air Room Air Room Air 05/12/19 00:00 Intake Total 1540 ml Output Total 1500 ml Balance 40 ml Capillary Refill : Less Than 3 Seconds Constitutional: AAO x 3, well-nourished HEENT: PERRL, hearing is well preserved, oral hygience is good Neck: No carotid bruit; carotid pulses are 2 + bilaterally Respiratory: No accessory muscle use, No respiratory distress; chest expansion is symmetric, chest is bilaterally symmetric, lungs clear to auscultation Cardiovascular: regular rate-rhythm; No JVD; S1 and S2 Gastrointestinal: tender (epigastric), soft, round; No guarding; audible bowel sounds Extremities: no lower extremity edema bilateral Neurologic/Psychiatric: grossly intact Skin: No rash on exposed areas, No ulcerations on exposed areas Data Review Labs Laboratory Tests 05/12/19 04:35: White Blood Count 8.1, Red Blood Count 3.78L, Hemoglobin 11.6, Hematocrit 36, Mean Corpuscular Volume 94, Mean Corpuscular Hemoglobin 31, Mean Corpuscular Hemoglobin Concent 33, Red Cell Distribution Width 13.3, Platelet Count 253, Mean Platelet Volume 9.7, Sodium Level 139, Potassium Level 4.7, Chloride Level 105, Carbon Dioxide Level 22, Anion Gap 12, Blood Urea Nitrogen 20H, Creatinine 0.79, Estimat Glomerular Filtration Rate > 60, BUN/Creatinine Ratio 25, Glucose Level 126H, Calcium Level 9.3, Magnesium Level 1.6, Triglycerides Level 286H, Cholesterol Level 182, LDL Cholesterol Direct 78, VLDL Cholesterol 57H, HDL Cholesterol 63H, Thyroid Stimulating Hormone (TSH) 0.01L Microbiology 05/10/19 Urine Culture - Final, Complete Escherichia coli Radiology NAME: LUIS ROJAS [facility] REC#: [id number] PT STATUS: REG ER : 1940 PHYSICIAN: CARLOS TRAORE DO ADMIT DATE: 05/10/19/ER FS Signed Date of Exam:05/10/19 CT HEAD/CERVICAL SPINE WO PROCEDURE: CT head and CT cervical spine without contrast. TECHNIQUE: Multiple contiguous axial images were obtained through the brain and cervical spine without the use of intravenous contrast. Sagittal and coronal reformations through the cervical spine were then performed. Auto Exposure Controls were utilized during the CT exam to meet ALARA standards for radiation dose reduction. INDICATION: Headache for 5 days. COMPARISON: None. FINDINGS: CT head: The ventricles and cortical sulci are age-appropriate. There is no midline shift or mass-effect. No acute intracranial hemorrhage is seen. There is no CT evidence of acute territorial ischemia. Scattered chronic microvascular disease is seen in the periventricular and subcortical white matter. No focal masses or collections are present. The calvarium is intact. The visualized paranasal sinuses are clear. CT cervical spine: No acute fracture or dislocation is seen in the cervical spine. No focal osseous lesions. There is reversal of the normal lordotic curvature, the cervical spine centered at the C4 level. Vertebral body heights are well-maintained. The craniocervical junction is well-maintained. Moderate to severe degenerative changes are seen in the cervical spine with disc osteophyte complexes and uncovertebral arthropathy. Soft tissues of the neck are unremarkable. IMPRESSION: 1. No hemorrhage or focal intra-axial mass. No CT evidence of large acute territorial ischemia. 2. No acute fracture or dislocation in the cervical spine. 3. Chronic microvascular disease in the periventricular and subcortical white matter. 4. Moderate to severe degenerative changes in the cervical spine with reversal of the normal lordotic curvature of the cervical spine centered at the C4 level. This results in at least moderate spinal canal stenosis at C4-C5 and C5-C6. Consider MRI of the cervical spine without contrast noted on a outpatient basis to further evaluate. Dictated by: Dictated on workstation # [id number] Dict: 05/10/19 1106 Trans: 05/10/19 1121 CV [id number] Interpreted by: JUANI SUÁREZ DO Electronically signed by: JUANI SUÁREZ DO 05/10/19 1121 NAME: LUIS ROJAS [facility] REC#: [id number] PT STATUS: REG ER : 1940 PHYSICIAN: CARLOS TRAORE DO ADMIT DATE: 05/10/19/ER FS Signed Date of Exam:05/10/19 CHEST 1 VIEW AP/PA ONLY EXAMINATION: Chest 1 view. HISTORY: Chest pain for five days. COMPARISON: 12/30/2018. FINDINGS: The lung volumes are normal. No focal consolidation is seen. No large pleural effusion or pneumothorax is seen. The cardiomediastinal silhouette is enlarged. No acute osseous abnormality is seen. IMPRESSION: 1. Stable cardiomegaly. No overt pulmonary edema. Dictated by: Dictated on workstation # [id number] Dict: 05/10/19 1138 Trans: 05/10/197 [id number] Interpreted by: JUANI SUÁREZ DO Electronically signed by: JUANI SUÁREZ DO 05/10/19 1207 ECG Impression ECG Initial ECG Rhythm: Normal Sinus A/P-Cardiology Assessment/Admission Diagnosis Chest pain of undetermined etiology Acute on chronic CHF H/O CAD - reports CO in November 2017 - cardiac cath at [facility] which she states showed 50% blockages - no stents or angioplasty at that time UTI - management per medical services HTN HLD - statin tx COPD Asthma Hypothyroidism DM H/O chronic anemia - iron replacement GERD Hiatal hernia Fibromyalgia Diverticulitis Chronic back pain Headache - management per medical services Discussion and Recomendations Chest pain of undetermined etiology - no evidence of ACS thus far Acute on chronic CHF - Echocardiogram today - continue diuretics Uncontrolled HTN - continue home medications Continue ASA d/t known h/o CAD PPI Management of UTI per medical services Request records from [facility] Management of headache is per medical services We would like to thank medical services for this consult Further recs will be based on her hospital course Clinical Quality Measures AMI/AHF: ASA po Prior to arrival: No DVT/VTE Risk/Contraindication: Risk Factor Score Per Nursin RFS Level Per Nursing on Admit: 4+=Very High TAWNY SCHMIDT May 11, 2019 09:11 POS
[2019-05-11] MEDS: CARVEDILOL 6.25 MG (COREG) TAB PO SCH ×2 (10:14→20:00)
[2019-05-11 12:00] VITALS: BP 133/73
--- NOTE | 2019-05-11 13:00 | Consultation-Cardiology ---
HPI-Cardiology Cardiology Consultation: Date of Consultation 05/11/19 Time Seen by a Provider: 09:30 Date of Admission Attending Physician Lu Hill MD Admitting Physician Javier Valero MD Consulting Physician JENNIFER KLEIN MD, MA, FACP, FACC, FSCAI, CCDS HPI: Chief Complaint: CC: Chest pain HPI Ms. Taylor is a 79 year old female admitted to [facility] from the [facility] ED with c/o CP which has been present for the last 5-6 days. She states she has had chronic chest pressure which radiates across her chest. It is constant, but worse at times with movement. She states it is mod. She reports feeling weak, shaky with exertion. She reports aching to her left arm. She states she has been under increased stress d/t her younger brother dying from cancer. She reports she has had a headache for the last 5-6 days as well. She is reporting abdominal discomfort as well. She reports she has continued chest discomfort, but states it is mild at this time. No c/o dyspnea, palpitations, syncope, near syncope or LE swelling. She reports she follows with a geophysical operator at [facility] and saw him in February 2019. She reports she has had an approx 25 lb weight loss over the last year d/t poor appetite. She denies any n/v/d. She denies any fever or chills. Review of Systems-Cardiology Review of Systems Constitutional: No chills, No fever; malaise Eyes: No vision change Ears/Nose/Throat: No epistaxis, No recent hearing loss Respiratory: As described under HPI Cardiovascular: As described under HPI Gastrointestinal: No constipation, No diarrhea, No nausea, No vomiting Genitourinary: No hematuria Musculoskeletal: back pain, muscle pain, neck pain Skin: No rash on exposed areas, No ulcerations on exposed areas Psychiatric/Neurological: anxiety, depression; No seizure, No focal weakness, No syncope Hematologic: anemia All Other Systems Reviewed Negative Unless Noted: Yes TIX-Oybiai-Qagfhj Hx Patient Social History Alcohol Use: Occasionally Uses Recreational Drug Use: No Smoking Status: Former Smoker Type Used: Cigarettes 2nd Hand Smoke Exposure: No Recent Foreign Travel: No Recent Infectious Disease Expo: No Physical Abuse Screen: No Sexual Abuse: No Past Medical History PMH As described under Assessment. Family Medical History Family Medical History: She denies any family h/o CAD. Allergies and Home Medications Allergies Coded Allergies: No Known Drug Allergies (Unverified , 12/30/18) Home Medications Aspirin 81 Mg Tablet.dr, 81 MG PO DAILY, (Reported) Atorvastatin Calcium 40 Mg Tablet, 40 MG PO HS, (Reported) Carvedilol 6.25 Mg Tablet, 6.25 MG PO BID, (Reported) Celecoxib 200 Mg Capsule, 400 MG PO DAILY PRN for INFLAMMATION, (Reported) Cyanocobalamin (Vitamin B-12) 2,500 Mcg Tablet, 2,500 MCG PO HS, (Reported) Ferrous Sulfate 325 Mg Tablet, 325 MG PO HS, (Reported) Folic Acid 0.4 Mg Tablet, 0.4 MG PO HS, (Reported) Gabapentin 300 Mg Capsule, 300 MG PO TID, (Reported) Levothyroxine Sodium 100 Mcg Tablet, 100 MCG PO DAILY, (Reported) Losartan Potassium 25 Mg Tablet, 25 MG PO HS, (Reported) Metformin HCl 500 Mg Tablet, 500 MG PO BID WITH MEALS, (Reported) Omeprazole 20 Mg Tablet.dr, 20 MG PO HS, (Reported) Oxycodone HCl/Acetaminophen 1 Each Tablet, 1 TAB PO Q4H PRN for PAIN-MODERATE (5-7), (Reported) Patient Home Medication List Home Medication List Reviewed: Yes Physical Exam-Cardiology Physical Exam Vital Signs/I&O 05/11/19 05/11/19 05/11/19 05/11/19 01:00 03:13 07:00 08:00 Temp 36.3 37.2 Pulse 70 57 65 57 Resp 20 20 B/P (MAP) 134/68 (90) 161/82 (108) Pulse Ox 95 97 O2 Delivery Room Air Room Air 05/11/19 00:00 Intake Total 644 ml Balance 644 ml Capillary Refill : Less Than 3 Seconds Constitutional: AAO x 3, well-nourished HEENT: PERRL, hearing is well preserved, oral hygience is good Neck: No carotid bruit; carotid pulses are 2 + bilaterally Respiratory: No accessory muscle use, No respiratory distress; chest expansion is symmetric, chest is bilaterally symmetric, lungs clear to auscultation Cardiovascular: regular rate-rhythm; No JVD; S1 and S2 Gastrointestinal: tender (epigastric), soft, round; No guarding; audible bowel sounds Extremities: no lower extremity edema bilateral Neurologic/Psychiatric: grossly intact Skin: No rash on exposed areas, No ulcerations on exposed areas Data Review Labs Laboratory Tests 05/10/19 14:50: Troponin I < 0.028 05/11/19 05:53: White Blood Count 7.5, Red Blood Count 3.49L, Hemoglobin 10.7L, Hematocrit 33L, Mean Corpuscular Volume 96, Mean Corpuscular Hemoglobin 31, Mean Corpuscular Hemoglobin Concent 32, Red Cell Distribution Width 12.8, Platelet Count 228, Mean Platelet Volume 10.3, Neutrophils (%) (Auto) 59, Lymphocytes (%) (Auto) 27, Monocytes (%) (Auto) 10, Eosinophils (%) (Auto) 4, Basophils (%) (Auto) 1, Neutrophils # (Auto) 4.4, Lymphocytes # (Auto) 2.0, Monocytes # (Auto) 0.7, Eosinophils # (Auto) 0.3, Basophils # (Auto) 0.0, Sodium Level 140, Potassium Level 4.9, Chloride Level 104, Carbon Dioxide Level 24, Anion Gap 12, Blood Urea Nitrogen 22H, Creatinine 0.97, Estimat Glomerular Filtration Rate 56, BUN/Creatinine Ratio 23, Glucose Level 133H, Calcium Level 8.7, Corrected Calcium 8.8, Total Bilirubin 0.4, Aspartate Amino Transf (AST/SGOT) 15, Alanine Aminotransferase (ALT/SGPT) 8, Alkaline Phosphatase 94, Total Protein 6.3L, Albumin 3.9 Microbiology 05/10/19 Urine Culture - Preliminary, Resulted Gram Negative Bacillus 1 Laboratory Tests 05/10/19 10:30 05/11/19 05:53 A/P-Cardiology Assessment/Admission Diagnosis Chest pain of undetermined etiology, no evidence of ACS Acute CHF, clinically mild, etiology unestablished H/O CAD - reports ID in November 2017 - cardiac cath at [facility] which she states showed 50% blockages - no stents or angioplasty at that time UTI - management per Medical services HTN HLD - statin tx COPD Asthma Hypothyroidism DM H/O chronic anemia - iron replacement GERD Hiatal hernia Fibromyalgia Diverticulitis Chronic back pain Headache - management per Medical Services Discussion and Recomendations * Echo to eval EF and wall motion * MPI to eval for cor ischemia * Treat CHF with diuretics * Resume home meds for htn * Continue ASA d/t known h/o CAD * PPI for known GERD and HH * Management of UTI per medical services * Request records from [facility] * Management of headache is per Medical services * We would like to thank Medical services for this consult Clinical Quality Measures AMI/AHF: ASA po Prior to arrival: No DVT/VTE Risk/Contraindication: Risk Factor Score Per Nursin RFS Level Per Nursing on Admit: 4+=Very High JENNIFER KLEIN MD FACP FAC CCDS May 11, 2019 13:00 POS
--- NOTE | 2019-05-11 15:52 | History & Physical ---
HPI History of Present Illness: 79 yo F that presented to ER with chest pain. States that the pain started about 1 week ago. States that it is constant and nothing has helped the pain including interventions in the ER. States that she has broken heart last year and follows with cardiology in [place]. Denies any radiation. Characterizes pain as a cons tant band like pain around her chest. Denies any sweating or shortness of breath associated with the pain. Denies any previous stents. States that this pain is different then the pain she had 1 year ago. Source: patient Exam Limitations: no limitations Date seen by provider: May 11, 2019 Time Seen by Provider: 10:00 Attending Physician No Hill MD PCP Javier Valero MD Consult Date of Admission May 10, 2019 at 12:46 Home Medications Home Medications Reviewed patient Home Medication Reconciliation performed by pharmacy medication reconciliations licensed veterinary technician and/or nursing. Patients Allergies have been reviewed. Allergies Coded Allergies: No Known Drug Allergies (Unverified , 12/30/18) PGR-Kzxbpz-Htylny Hx Patient Social History Alcohol Use: Occasionally Uses Recreational Drug Use: No Smoking Status: Former Smoker Type Used: Cigarettes 2nd Hand Smoke Exposure: No Recent Foreign Travel: No Contact w/other who traveled: No Recent Hopitalizations: No Recent Infectious Disease Expo: No Physical Abuse Screen: No Sexual Abuse: No Past Medical History HTN NIDDM HLD GERD Chronic anemia hypothyroidism Family Medical History Significant Family History: No Pertinent Family Hx Review of Systems (CHC) Constitutional: no symptoms reported; No chills, No fever EENTM: no symptoms reported; No mouth pain, No nose congestion, No throat pain Respiratory: no symptoms reported; No cough, No dyspnea on exertion, No orthopnea, No short of breath Cardiovascular: chest pain; No edema, No palpitations Gastrointestinal: abdominal pain; No constipation, No diarrhea, No dysphagia; loss of appetite; No nausea, No vomiting Genitourinary: no symptoms reported; No dysuria, No frequency, No hematuria : No Musculoskeletal: back pain (chronic) Skin: no symptoms reported; No lesions, No rash Psychiatric/Neurological: Headache; Denies Numbness, Denies Weakness Reviewed Test Results Reviewed Test Results Lab Laboratory Tests Test 05/11/19 05:53 Range/Units White Blood Count 7.5 4.3-11.0 10^3/uL Red Blood Count 3.49 L 4.35-5.85 10^6/uL Hemoglobin 10.7 L 11.5-16.0 G/DL Hematocrit 33 L 35-52 % Mean Corpuscular Volume 96 80-99 FL Mean Corpuscular Hemoglobin 31 25-34 PG Mean Corpuscular Hemoglobin Concent 32 32-36 G/DL Red Cell Distribution Width 12.8 10.0-14.5 % Platelet Count 228 130-400 10^3/uL Mean Platelet Volume 10.3 7.4-10.4 FL Neutrophils (%) (Auto) 59 42-75 % Lymphocytes (%) (Auto) 27 12-44 % Monocytes (%) (Auto) 10 0-12 % Eosinophils (%) (Auto) 4 0-10 % Basophils (%) (Auto) 1 0-10 % Neutrophils # (Auto) 4.4 1.8-7.8 X 10^3 Lymphocytes # (Auto) 2.0 1.0-4.0 X 10^3 Monocytes # (Auto) 0.7 0.0-1.0 X 10^3 Eosinophils # (Auto) 0.3 0.0-0.3 10^3/uL Basophils # (Auto) 0.0 0.0-0.1 10^3/uL Sodium Level 140 135-145 MMOL/L Potassium Level 4.9 3.6-5.0 MMOL/L Chloride Level 104 98-107 MMOL/L Carbon Dioxide Level 24 21-32 MMOL/L Anion Gap 12 5-14 MMOL/L Blood Urea Nitrogen 22 H 7-18 MG/DL Creatinine 0.97 0.60-1.30 MG/DL Estimat Glomerular Filtration Rate 56 BUN/Creatinine Ratio 23 Glucose Level 133 H 70-105 MG/DL Calcium Level 8.7 8.5-10.1 MG/DL Corrected Calcium 8.8 8.5-10.1 MG/DL Total Bilirubin 0.4 0.1-1.0 MG/DL Aspartate Amino Transf (AST/SGOT) 15 5-34 U/L Alanine Aminotransferase (ALT/SGPT) 8 0-55 U/L Alkaline Phosphatase 94 40-136 U/L Total Protein 6.3 L 6.4-8.2 GM/DL Albumin 3.9 3.2-4.5 GM/DL Radiology NAME: LUIS ROJAS MED REC#: [id number] PT STATUS: REG ER : 1940 PHYSICIAN: CARLOS TRAORE DO ADMIT DATE: 05/10/19/ER FS Signed Date of Exam:05/10/19 CT HEAD/CERVICAL SPINE WO PROCEDURE: CT head and CT cervical spine without contrast. TECHNIQUE: Multiple contiguous axial images were obtained through the brain and cervical spine without the use of intravenous contrast. Sagittal and coronal reformations through the cervical spine were then performed. Auto Exposure Controls were utilized during the CT exam to meet ALARA standards for radiation dose reduction. INDICATION: Headache for 5 days. COMPARISON: None. FINDINGS: CT head: The ventricles and cortical sulci are age-appropriate. There is no midline shift or mass-effect. No acute intracranial hemorrhage is seen. There is no CT evidence of acute territorial ischemia. Scattered chronic microvascular disease is seen in the periventricular and subcortical white matter. No focal masses or collections are present. The calvarium is intact. The visualized paranasal sinuses are clear. CT cervical spine: No acute fracture or dislocation is seen in the cervical spine. No focal osseous lesions. There is reversal of the normal lordotic curvature, the cervical spine centered at the C4 level. Vertebral body heights are well-maintained. The craniocervical junction is well-maintained. Moderate to severe degenerative changes are seen in the cervical spine with disc osteophyte complexes and uncovertebral arthropathy. Soft tissues of the neck are unremarkable. IMPRESSION: 1. No hemorrhage or focal intra-axial mass. No CT evidence of large acute territorial ischemia. 2. No acute fracture or dislocation in the cervical spine. 3. Chronic microvascular disease in the periventricular and subcortical white matter. 4. Moderate to severe degenerative changes in the cervical spine with reversal of the normal lordotic curvature of the cervical spine centered at the C4 level. This results in at least moderate spinal canal stenosis at C4-C5 and C5-C6. Consider MRI of the cervical spine without contrast noted on a outpatient basis to further evaluate. Dictated by: Dictated on workstation # [id number] Dict: 05/10/196 Trans: 05/10/19 112 CV [id number] Interpreted by: JUANI SUÁREZ DO Electronically signed by: JUANI SUÁREZ DO 05/10/19 112 NAME: LUIS ROJAS [facility] REC#: [id number] PT STATUS: REG ER : 1940 PHYSICIAN: CARLOS TRAORE DO ADMIT DATE: 05/10/19/ER FS Signed Date of Exam:05/10/19 CHEST 1 VIEW AP/PA ONLY EXAMINATION: Chest 1 view. HISTORY: Chest pain for five days. COMPARISON: 12/30/2018. FINDINGS: The lung volumes are normal. No focal consolidation is seen. No large pleural effusion or pneumothorax is seen. The cardiomediastinal silhouette is enlarged. No acute osseous abnormality is seen. IMPRESSION: 1. Stable cardiomegaly. No overt pulmonary edema. Dictated by: Dictated on workstation # [id number] Dict: 05/10/19 1138 Trans: 05/10/19 1207 [id number] Interpreted by: JUANI SUÁREZ DO Electronically signed by: JUANI SUÁREZ DO 05/10/19 1207 Physical Exam-(CHC) Physical Exam Vital Signs VS - Last 72 Hours, by Label POS 05/10/19 05/10/19 05/10/19 05/10/19 10:27 10:27 11:03 13:15 Temp 36.0 36.0 36.0 Pulse 54 57 Resp 17 17 B/P (MAP) 155/54 (87) 137/55 (87) Pulse Ox 98 98 O2 Delivery Room Air Room Air Room Air 05/10/19 05/10/19 05/10/19 05/10/19 14:18 15:10 15:20 16:38 Temp 36.2 36.4 Pulse 59 74 74 Resp 20 18 B/P (MAP) 182/98 136/77 (96) Pulse Ox 97 97 97 O2 Delivery Room Air Room Air Room Air 05/10/19 05/10/19 05/10/19 05/10/19 19:00 20:00 20:39 23:37 Temp 36.5 36.3 Pulse 60 63 61 Resp 22 20 B/P (MAP) 144/78 (100) 148/77 (100) Pulse Ox 97 93 O2 Delivery Room Air Room Air Room Air 05/11/19 05/11/19 05/11/19 05/11/19 01:00 03:13 07:00 08:00 Temp 36.3 Pulse 70 57 65 Resp 20 B/P (MAP) 134/68 (90) Pulse Ox 95 O2 Delivery Room Air Room Air 05/11/19 05/11/19 05/11/19 08:00 12:00 13:00 Temp 37.2 37.2 Pulse 57 59 63 Resp 20 20 B/P (MAP) 161/82 (108) 133/73 (93) Pulse Ox 97 95 O2 Delivery Room Air Room Air Capillary Refill : Less Than 3 SecondsLess Than 3 Seconds General Appearance: WD/WN, no apparent distress, thin (elderly female) HEENT: PERRL/EOMI Neck: non-tender, full range of motion, supple Respiratory: chest non-tender, lungs clear, normal breath sounds, no respiratory distress, no accessory muscle use Cardiovascular: normal peripheral pulses, regular rate, rhythm, no edema, no murmur Gastrointestinal: normal bowel sounds, non tender, soft, no organomegaly Back: no CVA tenderness, no vertebral tenderness Extremities: normal range of motion, non-tender, normal inspection, no pedal edema, no calf tenderness Neurologic/Psychiatric: nutritionists II-XII nml as tested, no motor/sensory deficits, alert, normal mood/affect, oriented x 3 Skin: normal color, warm/dry Lymphatic: no adenopathy Assessment/Plan Assessment/Plan Admission Status: Observation (1) Atypical chest pain Status: Acute Assessment & Plan: - Cardiology consulted, appreciate recommendations, Echo today showed diastolic CHF, stress test pending tomorrow (2) Acute on chronic diastolic (congestive) heart failure Status: Acute (3) UTI (urinary tract infection) Status: Acute Assessment & Plan: - Started on Rocephin D1 Qualifiers: Qualified Codes: N30.01 - Acute cystitis with hematuria (4) HTN (hypertension) Status: Chronic Assessment & Plan: - Restarted home meds Qualifiers: Qualified Codes: I10 - Essential (primary) hypertension (5) HLD (hyperlipidemia) Status: Chronic Assessment & Plan: - Statin Qualifiers: Qualified Codes: E78.2 - Mixed hyperlipidemia (6) Hypothyroidism Status: Chronic Assessment & Plan: - TSH pending Qualifiers: Qualified Codes: E03.9 - Hypothyroidism, unspecified (7) Normocytic anemia Status: Chronic Assessment & Plan: - Take Iron replacement at home, iron studies pending (8) Non-insulin treated type 2 diabetes mellitus Status: Chronic Assessment & Plan: - Holding metformin due to possible need for contrast, SSI (9) DVT prophylaxis Status: Acute Assessment & Plan: - Lovenox Clinical Quality Measures AMI/AHF: ASA po Prior to arrival: No DVT/VTE Risk/Contraindication: Risk Factor Score Per Nursin RFS Level Per Nursing on Admit: 4+=Very High Copy Copies To 1: SELF,NO MCGILL MD, MD May 11, 2019 15:52 POS
[2019-05-11 15:55] VITALS: BP 116/69
[2019-05-11] MEDS: cefTRIAXone FOR IV USE 1,000 MG in WATER (STERILE) FOR INJECTION 10 ML IV SCH (16:33)
[2019-05-11 19:47] VITALS: BP 158/70
--- NOTE | 2019-05-11 20:00 | NUR ---
ENTERED PATIENT'S ROOM AND EXPLAINED TO PATIENT THAT I HAD HER EVENING MEDICATIONS TO GIVE HER THAT THE DOCTOR HAD ORDERED FOR HER TO TAKE. PATIENT STATED THAT SHE TOOK HER EVENING MEDICATIONS AT AROUND 1900 AND EXPLAINED THAT SHE HAD HER MEDICATIONS IN THE ROOM. PATIENT FURTHER STATES THAT SHE TOOK HER ASA, COREG, COZAAR, LIPITOR AND OXYCODONE. EXPLAINED TO PATIENT THAT OXY HAD NOT BEEN ORDERED BY DOCTOR AND THAT SHE SHOULD NOT BE TAKING HER OWN MEDICATIONS BECAUSE THEY HAD NOT BEEN VERIFIED BY PHARMACY AND THAT THE DOCTOR HAD NOT RESTARTED ALL OF HER HOME MEDICATIONS. PATIENT VERY APOLOGETIC AND EXPLAINED THAT SHE "DIDN'T MEAN TO DO ANYTHING WRONG" AND THAT SHE WOULD NOT TAKE ANYMORE OF HER OWN PILLS. ASSURED PATIENT THAT THE NURSES WOULD ADMINISTER THE MEDICATIONS THAT THE DOCTOR WANTED HER TO HAVE. PATIENT HAS VERY LARGE PLASTIC TUB OF MEDICATIONS THAT DOES NOT FIT IN LOCK UP DRAWER. PATIENT AGAIN STATED THAT SHE WOULD NOT TAKE ANYMORE MEDICATIONS AND WOULD HAVE HER CHILDREN TAKE ALL MEDICATIONS HOME. OXYCODONE 7.5 COUNTED WITH PATIENT IN ROOM AND WITH ILIA BILLY RN WITNESS AND PLACED IN LOCKED DRAWER.
[2019-05-11] MEDS ORDERED: LOSARTAN 25 MG (COZAAR) TAB PO SCH (21:00)
[2019-05-11 23:20] VITALS: BP 110/62
[2019-05-12 04:20] VITALS: BP 145/70
[2019-05-12 05:12] LABS: HEMOGLOBIN 11.6 G/DL (11.5-16.0); MEAN PLATELET VOLUME 9.7 FL (7.4-10.4); RED CELL DISTRIBUTION WIDTH 13.3 % (10.0-14.5); WHITE BLOOD COUNT 8.1 10^3/uL (4.3-11.0)
[2019-05-12 05:22] LABS: BUN/CREATININE RATIO 25; CALCIUM 9.3 MG/DL (8.5-10.1); CARBON DIOXIDE 22 MMOL/L (21-32); CHLORIDE 105 MMOL/L (98-107); CHOLESTEROL 182 MG/DL (< 200); CREATININE SERUM 0.79 MG/DL (0.60-1.30); GFR ESTIMATED > 60; GLUCOSE 126 MG/DL (70-105); HDL CHOLESTEROL 63 MG/DL (40-60); MAGNESIUM 1.6 MG/DL (1.6-2.4); POTASSIUM 4.7 MMOL/L (3.6-5.0); SODIUM 139 MMOL/L (135-145); TRIGLYCERIDES 286 MG/DL (<150); VLDL CHOLESTEROL 57 MG/DL (5-40)
[2019-05-12] MEDS: CATHETER FLUSH 10 ML SYR IV SCH (05:32)
[2019-05-12] MEDS ORDERED: LEVOTHYROXINE 100 MCG (LEVOTHROID) TAB PO SCH (06:30)
[2019-05-12] MEDS ORDERED: REGADENOSON 0.4 MG/5 ML SYR (LEXISCAN) IV ONE ×2 (08:15→10:00)
[2019-05-12 08:19] VITALS: BP 182/88
[2019-05-12 08:25] VITALS: BP 145/82
[2019-05-12] MEDS ORDERED: ASPIRIN E.C. 81 MG (ECOTRIN) TAB PO SCH (09:00)
--- NOTE | 2019-05-12 09:20 | NUR ---
RETURNED TO ROOM FROM [facility], VIA WHEELCHAIR, ACCOMPANIED BY [facility] STAFF. WARM BLANKETS PLACED ON PATIENT.
--- NOTE | 2019-05-12 09:47 | NUR ---
CM/SS visited patient to assess needs upon discharge. Plan: The patient verbalized she will be returning home upon discharge. The patient will have a ride available from her son or niece in [place]. DME: The patient utilizes [employer] and has 2 walkers at home. No other Medical equipment needs. Summary: The patient states that she will be returning home with transportation needs met. The patient lives at home alone but reports that she gets around good by herself for the most part. The patient has two walkers at home if she needs to use them and does occasionally. The patient is ready to get home to her dog who provides good emotional support to her. CM/SS told patient that if she had any other needs cm/ss would be available.
[2019-05-12] MEDS: cefTRIAXone FOR IV USE 1,000 MG in WATER (STERILE) FOR INJECTION 10 ML IV SCH (10:01)
[2019-05-12] MEDS: CARVEDILOL 6.25 MG (COREG) TAB PO SCH (10:01)
[2019-05-12] MEDS ORDERED: NS IV 500 ML 500 ML ONE (10:08)
--- NOTE | 2019-05-12 10:42 | Progress Note - Cardiology ---
Cardiology SOAP Progress Note Subjective: Generalized body aches. C/O RUQ abd discomfort. No c/o dyspnea or palpitations. Objective: I&O/Vital Signs Weight (Pounds): 125 Weight (Calculated Kilograms): 56.256903 Constitutional: AAO x 3, well-nourished Respiratory: No accessory muscle use, No respiratory distress; chest expansion is symmetric, chest is bilaterally symmetric, lungs clear to auscultation Cardiovascular: regular rate-rhythm; No JVD; S1 and S2 Gastrointestional: tender (epigastric), soft, round; No guarding; audible bowel sounds Extremities: no lower extremity edema bilateral Neurologic/Psychiatric: grossly intact Skin: No rash on exposed areas, No ulcerations on exposed areas Results/Procedures: Labs Microbiology 05/10/19 Urine Culture - Final, Complete Escherichia coli A/P: Assessment: Chest pain of undetermined etiology, no evidence of ACS Acute on chronic diastolic CHF, clinically mild H/O CAD - Cardiac cath of November [address] Almendarez at [facility] showed 50% stenosis to the LAD with apical ballooning and LVEF of 25-30%. Echo at [facility] from 2018 showed LVEF improved to 50-55% with Grade 2 diastolic dysfunction. MPI of 05-12-19 showed no evidence of ischemia or infarction Echo of 05-11-19 showed LVEF 60-65%. Grade 1 diastolic dysfunction. Mild to mod MR. UTI - management per Medical services HTN HLD - statin tx COPD Asthma Hypothyroidism DM H/O chronic anemia - iron replacement GERD Hiatal hernia Fibromyalgia Diverticulitis Chronic back pain Headache - management per Medical Services Plan: * Records from [facility] reviewed * Echocardiogram reviewed * MPI showed no evidence of ischemia or infarction * Continue medications * Advised out pt f/u with her primary cloth roll winder Dr. Almendarez at [facility] Clinical Quality Measures AMI/AHF: ASA po Prior to arrival: TAWNY Kaiser May 12, 2019 10:42 POS
[2019-05-12 11:48] VITALS: BP 143/77
--- NOTE | 2019-05-12 12:30 | NUR ---
PATIENT TOOK HER OWN GABAPENTIN FOR RESTLESS LEGS AND ONE HYDROCODONE FOR CHRONIC BACK PAIN.
--- NOTE | 2019-05-12 12:46 | Discharge Summary ---
Diagnosis/Chief Complaint Date of Admission May 10, 2019 at 12:46 Date of Discharge Discharge Diagnosis Problems/Diagnosis: (1) Atypical chest pain Assessment & Plan: - Cardiology consulted, appreciate recommendations, Echo today showed diastolic CHF, stress test pending tomorrow Status: Acute (2) Acute on chronic diastolic (congestive) heart failure Status: Acute (3) UTI (urinary tract infection) Assessment & Plan: - Started on Rocephin D1 Qualifiers: Qualified Codes: N30.01 - Acute cystitis with hematuria Status: Acute (4) HTN (hypertension) Assessment & Plan: - Restarted home meds Qualifiers: Qualified Codes: I10 - Essential (primary) hypertension Status: Chronic (5) HLD (hyperlipidemia) Assessment & Plan: - Statin Qualifiers: Qualified Codes: E78.2 - Mixed hyperlipidemia Status: Chronic (6) Hypothyroidism Assessment & Plan: - TSH pending Qualifiers: Qualified Codes: E03.9 - Hypothyroidism, unspecified Status: Chronic (7) Normocytic anemia Assessment & Plan: - Take Iron replacement at home, iron studies pending Status: Chronic (8) Non-insulin treated type 2 diabetes mellitus Assessment & Plan: - Holding metformin due to possible need for contrast, SSI Status: Chronic (9) DVT prophylaxis Assessment & Plan: - Lovenox Status: Acute Chief Complaint/HPI Chief Complaint/HPI 79 yo F that presented to ER with chest pain. States that the pain started about 1 week ago. States that it is constant and nothing has helped the pain including interventions in the ER. States that she has broken heart last year and follows with cardiology in [place]. Denies any radiation. Characterizes pain as a constant band like pain around her chest. Denies any sweating or shortness of breath associated with the pain. Denies any previous stents. States that this pain is different then the pain she had 1 year ago. Discharge Summary-Simple/Stand Consultations Discharge Physical Examination Allergies: Coded Allergies: No Known Drug Allergies (Unverified , 12/30/18) Vitals & I&Os Vital Sign - Last 12Hours Date Time Temp Pulse Resp B/P (MAP) Pulse Ox O2 Delivery O2 Flow Rate FiO2 05/12/19 11:48 36.5 64 16 143/77 (99) 97 Room Air Intake and Output 05/12/19 00:00 Intake Total 1540 ml Output Total 1500 ml Balance 40 ml Hospital Course See final discharge diagnosis. Radiology Reviewed NAME: LUIS ROJAS [facility] REC#: [id number] PT STATUS: REG ER : 1940 PHYSICIAN: CARLOS TRAORE DO ADMIT DATE: 05/10/19/ER FS Signed Date of Exam:05/10/19 CT HEAD/CERVICAL SPINE WO PROCEDURE: CT head and CT cervical spine without contrast. TECHNIQUE: Multiple contiguous axial images were obtained through the brain and cervical spine without the use of intravenous contrast. Sagittal and coronal reformations through the cervical spine were then performed. Auto Exposure Controls were utilized during the CT exam to meet ALARA standards for radiation dose reduction. INDICATION: Headache for 5 days. COMPARISON: None. FINDINGS: CT head: The ventricles and cortical sulci are age-appropriate. There is no midline shift or mass-effect. No acute intracranial hemorrhage is seen. There is no CT evidence of acute territorial ischemia. Scattered chronic microvascular disease is seen in the periventricular and subcortical white matter. No focal masses or collections are present. The calvarium is intact. The visualized paranasal sinuses are clear. CT cervical spine: No acute fracture or dislocation is seen in the cervical spine. No focal osseous lesions. There is reversal of the normal lordotic curvature, the cervical spine centered at the C4 level. Vertebral body heights are well-maintained. The craniocervical junction is well-maintained. Moderate to severe degenerative changes are seen in the cervical spine with disc osteophyte complexes and uncovertebral arthropathy. Soft tissues of the neck are unremarkable. IMPRESSION: 1. No hemorrhage or focal intra-axial mass. No CT evidence of large acute territorial ischemia. 2. No acute fracture or dislocation in the cervical spine. 3. Chronic microvascular disease in the periventricular and subcortical white matter. 4. Moderate to severe degenerative changes in the cervical spine with reversal of the normal lordotic curvature of the cervical spine centered at the C4 level. This results in at least moderate spinal canal stenosis at C4-C5 and C5-C6. Consider MRI of the cervical spine without contrast noted on a outpatient basis to further evaluate. Dictated by: Dictated on workstation # [id number] Dict: 05/10/19 1106 Trans: 05/10/19 1121 [facility] [id number] Interpreted by: JUANI SUÁREZ DO Electronically signed by: JUANI SUÁRZE DO 05/10/19 1121 NAME: LUIS ROJAS [facility] REC#: [id number] PT STATUS: REG ER : 1940 PHYSICIAN: CARLOS TRAORE DO ADMIT DATE: 05/10/19/ER FS Signed Date of Exam:05/10/19 CHEST 1 VIEW AP/PA ONLY EXAMINATION: Chest 1 view. HISTORY: Chest pain for five days. COMPARISON: 12/30/2018. FINDINGS: The lung volumes are normal. No focal consolidation is seen. No large pleural effusion or pneumothorax is seen. The cardiomediastinal silhouette is enlarged. No acute osseous abnormality is seen. IMPRESSION: 1. Stable cardiomegaly. No overt pulmonary edema. Dictated by: Dictated on workstation # [id number] Dict: 05/10/19 1138 Trans: 05/10/19 1207 [id number] Interpreted by: JUANI SUÁREZ DO Electronically signed by: JUANI SUÁREZ DO 05/10/19 1207 Discharge Instructions to patient/family Please see electronic discharge instructions given to patient. Discharge Medications Reviewed and agree with Discharge Medication list on patient's Discharge Instruction sheet Clinical Quality Measures AMI/AHF: ASA po Prior to arrival: No DVT/VTE Risk/Contraindication: Risk Factor Score Per Nursin RFS Level Per Nursing on Admit: 4+=Very High NO CLARK MD May 12, 2019 12:46 POS
[2019-05-12] MEDS ORDERED: CEFD300C3 PO (12:48)
--- NOTE | 2019-05-12 12:49 | Discharge Instructions ---
Discharge [facility] Discharge Medications New, Converted or Re-Newed RX: Transmitted to Pharmacy New Medications: Cefdinir (Cefdinir) 300 Mg Capsule 300 MG PO BID, #4 CAP Continued Medications: Aspirin (Aspirin EC) 81 Mg Tablet. 81 MG PO DAILY, TAB Atorvastatin Calcium (Atorvastatin Calcium) 40 Mg Tablet 40 MG PO HS Carvedilol (Carvedilol) 6.25 Mg Tablet 6.25 MG PO BID Celecoxib (Celecoxib) 200 Mg Capsule 400 MG PO DAILY PRN for INFLAMMATION Cyanocobalamin (Vitamin B-12) (Vitamin B12) 2,500 Mcg Tablet 2500 MCG PO HS, TAB Folic Acid (Folic Acid) 0.4 Mg Tablet 0.4 MG PO HS, TAB Gabapentin (Gabapentin) 300 Mg Capsule 300 MG PO TID Levothyroxine Sodium (Levothyroxine Sodium) 100 Mcg Tablet 100 MCG PO DAILY Losartan Potassium (Losartan Potassium) 25 Mg Tablet 25 MG PO HS Metformin HCl (Metformin HCl) 500 Mg Tablet 500 MG PO BID WITH MEALS Omeprazole (Omeprazole) 20 Mg Tablet.dr 20 MG PO HS, TAB Oxycodone HCl/Acetaminophen (Oxycodon-Acetaminophen 7.5-325) 1 Each Tablet 1 TAB PO Q4H PRN for PAIN-MODERATE (5-7) Discontinued Medications: Ferrous Sulfate (Iron) 325 Mg Tablet 325 MG PO HS, TAB Patient Instructions Goal/Follow Up Appt: Keep your appt with Dr Valero next week Activity & Diet Discharge Diet: ADA Diet, Cardiac Diet Activity as Tolerated: Yes Copy Copies To 1: MARIANA,NO MCGILL MD, MD May 12, 2019 12:49 POS
--- NOTE | 2019-05-12 12:59 | STRESS TEST ---
DATE OF SERVICE: 05/12/2019 RESTING AND POST REGADENOSON TECHNETIUM-99M TETROFOSMIN SPECT CT IMAGING ORDERING PHYSICIAN: Jeimy Cole APRN ATTENDING PHYSICIAN: Dr. Hill. CLINICAL DIAGNOSIS: Chest pain. Baseline images were carried out after injection of 10.41 mCi of technetium-99m Tetrofosmin but this was followed by 0.4 mg regadenoson and 31.9 mCi of technetium-99m Tetrofosmin for stress imaging. The electrocardiogram showed sinus rhythm with left anterior fascicular block and nonspecific T-wave abnormality throughout the study. The electrocardiogram did not change significantly with regadenoson infusion. The patient noted chest discomfort and a headache following the regadenoson infusion, which improved within a few minutes of cessation of the infusion. The patient, overall, tolerated the procedure well. Review of images at rest and following stress does not indicate any significant perfusion defects consistent with significant myocardial ischemia or infarction. Gated images show normal global left ventricular systolic function with normal regional wall motion. Left ventricular ejection fraction is calculated to be 44%, but subjectively appears to be higher than that. CONCLUSIONS: 1. No evidence of any significant myocardial ischemia or infarction is seen. 2. Normal regional wall motion. 3. Global left ventricular systolic function appears subjectively to be normal and is calculated to be 44%. Job ID: [id number] DocumentID: [id number] Dictated Date: 05/12/2019 10:04:24 Merchandise [employer] Date: 05/12/2019 12:59:19 Dictated By: JENNIFER KLEIN MD, MA, FACP, FACC, MTDD
--- NOTE | 2019-05-12 19:32 | Progress Note - Cardiology ---
Cardiology SOAP Progress Note Subjective: Does not report cp today Has chronic exertional shortness of breath Denies palp or syncope or swelling No N/V Objective: I&O/Vital Signs 05/12/19 05/12/19 05/12/19 05/12/19 08:00 08:19 08:25 11:48 Temp 36.5 Pulse 54 88 64 Resp 18 18 16 B/P (MAP) 182/88 (119) 145/82 (103) 143/77 (99) Pulse Ox 95 95 97 O2 Delivery Room Air Room Air Room Air Room Air 05/12/19 05/12/19 12:51 15:00 Temp 36.5 Pulse 63 64 Resp 16 B/P (MAP) Pulse Ox 96 O2 Delivery Room Air 05/12/19 00:00 Intake Total 1540 ml Output Total 1500 ml Balance 40 ml Weight (Pounds): 125 Weight (Calculated Kilograms): 56.788726 Constitutional: AAO x 3, well-nourished Respiratory: No accessory muscle use, No respiratory distress; chest expansion is symmetric, chest is bilaterally symmetric, lungs clear to auscultation Cardiovascular: regular rate-rhythm; No JVD; S1 and S2 Gastrointestional: tender (epigastric), soft, round; No guarding; audible bowel sounds Extremities: no lower extremity edema bilateral Neurologic/Psychiatric: grossly intact Skin: No rash on exposed areas, No ulcerations on exposed areas Results/Procedures: Labs Laboratory Tests 05/12/19 04:35: White Blood Count 8.1, Red Blood Count 3.78L, Hemoglobin 11.6, Hematocrit 36, Mean Corpuscular Volume 94, Mean Corpuscular Hemoglobin 31, Mean Corpuscular Hemoglobin Concent 33, Red Cell Distribution Width 13.3, Platelet Count 253, Mean Platelet Volume 9.7, Sodium Level 139, Potassium Level 4.7, Chloride Level 105, Carbon Dioxide Level 22, Anion Gap 12, Blood Urea Nitrogen 20H, Creatinine 0.79, Estimat Glomerular Filtration Rate > 60, BUN/Creatinine Ratio 25, Glucose Level 126H, Calcium Level 9.3, Magnesium Level 1.6, Triglycerides Level 286H, Cholesterol Level 182, LDL Cholesterol Direct 78, VLDL Cholesterol 57H, HDL Cho lesterol 63H, Thyroid Stimulating Hormone (TSH) 0.01L Microbiology 05/10/19 Urine Culture - Final, Complete Escherichia coli Laboratory Tests 05/11/19 05:53 05/12/19 04:35 A/P: Assessment: Chest pain of undetermined etiology, no evidence of ACS Acute on chronic diastolic CHF, clinically mild H/O CAD - Cardiac cath of November [address] Almendarez at [facility] showed 50% stenosis to the LAD with apical ballooning and LVEF of 25-30%. Echo at [facility] from 2018 showed LVEF improved to 50-55% with Grade 2 diastolic dysfunction. MPI of 05-12-19 showed no evidence of ischemia or infarction Echo of 05-11-19 showed LVEF 60-65%. Grade 1 diastolic dysfunction. Mild to mod MR. UTI - management per Medical services HTN HLD - statin tx COPD Asthma Hyperthyroidism, probably iatrogenic (treatment of hypothyroidism) being managed by the Med Svce DM H/O chronic anemia - managed by the Med S[facility] GERD Hiatal hernia Fibromyalgia Diverticulitis Chronic back pain Headache - management per Medical Services Plan: * Records from [facility] reviewed * Echocardiogram reviewed * MPI showed no evidence of ischemia or infarction * Continue medications * Advised out pt f/u with her primary title specialist Dr. Almendarez at [facility] Clinical Quality Measures AMI/AHF: ASA po Prior to arrival: JENNIFER Jane MD FACP FAC CCDS May 12, 2019 19:32 POS
[2019-05-12] MEDS ORDERED: PANTOPRAZOLE 20 MG TABLET (PROTONIX) PO SCH (21:00)
== END 2019-05-12 14:41 | disposition home or self-care (01) ==
LOC: EDUNIT# 10:27 → ER FS 10:28 → 4TH 12:46
PROVIDERS: ADMIT Family Medicine; ATTEND Family Medicine
DX: R07.89 Other chest pain (principal); I11.0 Hypertensive heart disease with heart failure; I50.33 Acute on chronic diastolic (congestive) heart failure; I25.10 Atherosclerotic heart disease of native coronary artery without angina pectoris; N30.01 Acute cystitis with hematuria; E03.9 Hypothyroidism, unspecified; E78.2 Mixed hyperlipidemia; D64.9 Anemia, unspecified; J44.9 Chronic obstructive pulmonary disease, unspecified; K21.9 Gastro-esophageal reflux disease without esophagitis; I51.81 Takotsubo syndrome; M79.7 Fibromyalgia; R79.0 Abnormal level of blood mineral; G89.29 Other chronic pain; M54.9 Dorsalgia, unspecified; Z87.891 Personal history of nicotine dependence; Z86.74 Personal history of sudden cardiac arrest
CPT/HCPCS: 36415; 70450; 71045; 72125; 78452; 80048; 80053; 80061; 81000; 82728; 83540; 83690; 83735; 83880; 84443; 84484; 85025; 85027; 85379; 85610; 85730; 87077; 87088; 87186; 93005; 93017; 93306; 96374; 96375; G0378

== ENCOUNTER 2020-11-13 17:56 | Day surgery (SDC) | payer MEDICARE, OTHER ==
[2020-11-12] VITALS: BP 128/76
[~2020-11-13] VITALS: Ht 152.4 cm; Wt 66.2 kg
[~2020-11-13 17:56] MED LIST: ASPI-1238 PO; ATOR40TA70 PO; CARV6.252 PO; CEFD300C3 PO; CELE-63 PO; CYAN250010 PO; FERR-84 PO; FOLI0.4T6 PO; GABA-488 PO; LEVO100T7 PO; LOSA25TA41 PO; METF-397 PO; OMEP20TA7 PO; OXYC1TAB15 PO
[2020-11-13] MEDS ORDERED: RT-ALBUTEROL/IPRATROPIUM 3 ML (DUONEB) VIAL INH ONE (18:15)
--- NOTE | 2020-11-13 18:28 | ED Chest Pain ---
General Chief Complaint: Cough/Cold/Flu Symptoms Stated Complaint: SORE THROAT; LUNG PAIN Nursing Triage Note: Patient reports she has had a sore throat and productive cough with chest pain since Wednesday. She reports a history of MD and COPD. Nursing Sepsis Screen: No Definite Risk Source: patient Exam Limitations: no limitations (DEMETRA AGUILERA MD) History of Present Illness Date Seen by Provider: Nov 13, 2020 Time Seen by Provider: 18:05 Initial Comments This 80-year-old woman presents to the emergency room with complaints of feeling ill for about 5 days. She has pleuritic chest pain, sore throat, mild diarrhea, and wheezes. She has known history of COPD and coronary artery disease. She denies fever. She has been double vaccinated for COVID-19. She also complains of "heartburn". (DEMETRA AGUILERA MD) Initial Comments Patient further reveals that she started clindamycin yesterday after a visit with Iker Rose at [facility] to treat staph in her throat. She does not feel any better. History of chronic CHF , recovered ejection fraction. Catheterization 2018 at [facility] showed 50% stenosis to the LAD with apical ballooning and ejection fraction 25 to 30%. Subsequent echocardiogram from 2019 demonstrated an EF of 50 to 55% with grade 2 diastolic dysfunction. History of hypertension, hyperlipidemia, COPD, diabetes, hypothyroidism, GERD and hiatal hernia. (OME MOBLEY) Allergies and Home Medications Allergies Coded Allergies: methotrexate (Verified Allergy, Unknown, 11/13/20) Home Medications Aspirin 81 Mg Tablet.dr, 81 MG PO DAILY, (Reported) Atorvastatin Calcium 40 Mg Tablet, 40 MG PO HS, (Reported) Carvedilol 6.25 Mg Tablet, 6.25 MG PO BID, (Reported) Cefdinir 300 Mg Capsule, 300 MG PO BID Prescribed by: NO CLARK on 05/12/19 1248 Celecoxib 200 Mg Capsule, 400 MG PO DAILY PRN for INFLAMMATION, (Reported) Cyanocobalamin (Vitamin B-12) 2,500 Mcg Tablet, 2,500 MCG PO HS, (Reported) Folic Acid 0.4 Mg Tablet, 0.4 MG PO HS, (Reported) Gabapentin 300 Mg Capsule, 300 MG PO TID, (Reported) Levothyroxine Sodium 100 Mcg Tablet, 100 MCG PO DAILY, (Reported) Losartan Potassium 25 Mg Tablet, 25 MG PO HS, (Reported) Metformin HCl 500 Mg Tablet, 500 MG PO BID WITH MEALS, (Reported) Omeprazole 20 Mg Tablet.dr, 20 MG PO HS, (Reported) Oxycodone HCl/Acetaminophen 1 Each Tablet, 1 TAB PO Q4H PRN for PAIN-MODERATE (5-7), (Reported) Patient Home Medication List Home Medication List Reviewed: Yes (DEMETRA AGUILERA MD) Home Medication List Reviewed: Yes (MOE MOBLEY) Review of Systems Review of Systems Constitutional: no symptoms reported EENTM: See HPI Respiratory: See HPI Cardiovascular: See HPI Gastrointestinal: See HPI Genitourinary: No Symptoms Reported Musculoskeletal: no symptoms reported Skin: no symptoms reported Psychiatric/Neurological: No Symptoms Reported Endocrine: No Symptoms Reported Hematologic/Lymphatic: No Symptoms Reported (DEMETRA AGUILERA MD) Past Kvxcfsr-Daisfw-Fosupd Hx Past Med/Social Hx: Reviewed Nursing Past Med/Soc Hx (DEMETRA AGUILERA MD) Patient Social History Type Used: Cigarettes Former Smoker, Quit: Dec 29, 1998 2nd Hand Smoke Exposure: No Recent Infectious Disease Expo: No Recent Hopitalizations: No (DEMETRA AGUILERA MD) Seasonal Allergies Seasonal Allergies: No (DEMETRA AGUILERA MD) Past Medical History 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, history CHF) Coronary Artery Disease, Heart Attack, Hypertension Neurological: No : No Reproductive Disorders: No Genitourinary: No Gastrointestinal: Yes Hiatal Hernia Musculoskeletal: Yes Fibromyalgia, Back Injury Endocrine: Yes (states she is no longer diabetic) Diabetes, Non-Insulin dep HEENT: No Cancer: No Psychosocial: No Integumentary: No Blood Disorders: No Adverse Reaction/Blood Tranf: No (DEMETRA AGUILERA MD) Family Medical History No Pertinent Family Hx (DEMETRA AGUILERA MD) Physical Exam Vital Signs Vital Signs - First Documented 11/13/20 18:08 Temp 37.7 Pulse 89 Resp 16 B/P (MAP) 122/98 (106) Pulse Ox 92 O2 Delivery Room Air (MOE MOBLEY) Vital Signs Capillary Refill : Less Than 3 Seconds (DEMETRA AGUILERA MD) Height, Weight, BMI Height: 5'0" Weight: 125lbs. oz. 56.128688ze; 28.00 BMI Method:Stated General Appearance: No Apparent Distress, WD/WN HEENT: PERRL/EOMI, Normal ENT Inspection, Pharynx Normal Neck: Normal Inspection Respiratory: No Accessory Muscle Use, No Respiratory Distress; No Crackles; Decreased Breath Sounds (Right base), Rhonci, Wheezing, Other (Pain with palpation of the anterior chest) Cardiovascular: Regular Rate, Rhythm, No Edema, No Murmur Gastrointestinal: Non Tender, Soft; No Distended Extremity: Normal Inspection, No Calf Tenderness, No Pedal Edema, Other Neurologic/Psychiatric: Alert, Oriented x3, No Motor/Sensory Deficits, Normal Mood/Affect, tilting head band sawyer II-XII Norm as Tested Skin: Normal Color, Warm/Dry (DEMETRA AGUILERA MD) Progress/Results/Core Measures Results/Orders Lab Results Laboratory Tests Test 11/13/20 18:20 11/13/20 18:30 11/13/20 19:41 Range/Units White Blood Count 10.4 4.3-11.0 10^3/uL Red Blood Count 3.36 L 4.35-5.85 10^6/uL Hemoglobin 10.1 L 11.5-16.0 G/DL Hematocrit 31 L 35-52 % Mean Corpuscular Volume 93 80-99 FL Mean Corpuscular Hemoglobin 30 25-34 PG Mean Corpuscular Hemoglobin Concent 33 32-36 G/DL Red Cell Distribution Width 16.3 H 10.0-14.5 % Platelet Count 234 130-400 10^3/uL Mean Platelet Volume 9.9 7.4-10.4 FL Immature Granulocyte % (Auto) 1 % Neutrophils (%) (Auto) 65 42-75 % Lymphocytes (%) (Auto) 21 12-44 % Monocytes (%) (Auto) 11 0-12 % Eosinophils (%) (Auto) 2 0-10 % Basophils (%) (Auto) 0 0-10 % Neutrophils # (Auto) 6.8 1.8-7.8 X 10^3 Lymphocytes # (Auto) 2.2 1.0-4.0 X 10^3 Monocytes # (Auto) 1.2 H 0.0-1.0 X 10^3 Eosinophils # (Auto) 0.2 0.0-0.3 10^3/uL Basophils # (Auto) 0.0 0.0-0.1 10^3/uL Immature Granulocyte # (Auto) 0.1 0.0-0.1 10^3/uL Sodium Level 137 135-145 MMOL/L Potassium Level 4.3 3.6-5.0 MMOL/L Chloride Level 100 98-107 MMOL/L Carbon Dioxide Level 26 21-32 MMOL/L Anion Gap 11 5-14 MMOL/L Blood Urea Nitrogen 16 7-18 MG/DL Creatinine 1.28 0.60-1.30 MG/DL Estimat Glomerular Filtration Rate 40 BUN/Creatinine Ratio 13 Glucose Level 189 H 70-105 MG/DL Calcium Level 9.4 8.5-10.1 MG/DL Corrected Calcium 9.5 8.5-10.1 MG/DL Magnesium Level 1.3 L 1.6-2.4 MG/DL Total Bilirubin 0.3 0.1-1.0 MG/DL Aspartate Amino Transf (AST/SGOT) 20 5-34 U/L Alanine Aminotransferase (ALT/SGPT) 9 0-55 U/L Alkaline Phosphatase 89 40-136 U/L Myoglobin 46.9 10.0-92.0 NG/ML Troponin I < 0.30 <0.30 NG/ML C-Reactive Protein 3.06 H <0.50 MG/DL Pro-B-Type Natriuretic Peptide 315.4 H <75.0 PG/ML Total Protein 6.8 6.4-8.2 GM/DL Albumin 3.9 3.2-4.5 GM/DL Prothrombin Time 13.1 12.2-14.7 SEC INR Comment 1.0 0.8-1.4 Activated Partial Thromboplast Time 31 24-35 SEC D-Dimer 0.48 0.00-0.49 UG/ML Blood Gas Puncture Site RT RADIAL Blood Gas Patient Temperature 36.5 Arterial Blood pH 7.58 H 7.37-7.43 Arterial Blood Partial Pressure CO2 29 L 35-45 MMHG Arterial Blood Partial Pressure O2 59 L 79-93 MMHG Arterial Blood HCO3 27 23-27 MMOL/L Arterial Blood Total CO2 28.1 21.0-31.0 MMOL/L Arterial Blood Oxygen Saturation 94 94-100 % Arterial Blood Base Excess 5.8 H -2.5-2.5 MMOL/L Molina Test POSITIVE Blood Gas Ventilator Setting NO Blood Gas Inspired Oxygen ROOM AIR (MOE MOBLEY) Micro Results Microbiology 11/13/20 Influenza Types A,B Antigen (ESTRELLITA) - Final, Complete (MOE MOBLEY) My Orders Orders - MOE MOBLEY Probnp Fs (11/13/20 19:21) Methylprednisolone Sod Succ (Solu-Medrol (11/13/20 19:30) Arterial Blood Gas (11/13/20 19:24) Nitroglycerin 0.4 Mg Btl 25's (Nitrostat (11/13/20 19:30) Oxycodone/Apap 5/325mg Tablet (Percocet (11/13/20 20:00) Gabapentin Capsule/Tablet (Neurontin Cap (11/13/20 20:00) (MOE MOBLEY) Medications Given in ED Current Medications Medications Dose Ordered Sig/Eloy Route Start Time Stop Time Status Last Admin Dose Admin Albuterol/ Ipratropium 3 ml ONCE ONCE INH 11/13/20 18:15 11/13/20 18:19 DC 11/13/20 18:32 3 ML Gabapentin 200 mg ONCE ONCE PO 11/13/20 20:00 11/13/20 20:01 DC 11/13/20 20:12 200 MG Methylprednisolone Sodium Succinate 125 mg ONCE ONCE IVP 11/13/20 19:30 11/13/20 19:31 DC 11/13/20 19:31 125 MG Nitroglycerin 0.4 mg NEEDED PRN SL 11/13/20 19:30 11/13/20 19:31 0.4 MG Oxycodone/ Acetaminophen 1 tab ONCE ONCE PO 11/13/20 20:00 11/13/20 20:01 DC 11/13/20 20:13 1 TAB (MOE MOBLEY) Vital Signs/I&O 11/13/20 11/13/20 11/13/20 18:08 18:33 20:41 Temp 37.7 37.1 Pulse 89 82 Resp 16 16 B/P (MAP) 122/98 (106) 113/78 (90) Pulse Ox 92 94 O2 Delivery Room Air Room Air Room Air (MOE MOBLEY) Blood Pressure Mean: 106 Progress Progress Note : Progress Note Patient was seen and evaluated. DuoNeb treatment was ordered for the wheezing. Labs are still in progress. Chest x-ray was unremarkable. Care is being t ransitioned to Dr. Mobley at this time. (DEMETRA AGUILERA MD) Progress Note : Progress Note Assumed care of the patient at shift change, 1900. Patient has reported decreased work of breathing however her chest pain has not changed after the DuoNeb. She still has some pursed lip breathing. On room air she is 92 to 94%. Breathing about 20 breaths/min. Plan to add a BnP and seek observation care for her chest pain rule out acute coronary syndrome. We will start her on a dose of Solu-Medrol. ABG ordered. Nitroglycerin ordered. (MOE MOBLEY) Initial ECG Impression Date: Nov 13, 2020 Initial ECG Impression Time: 18:27 Initial ECG Rate: 84 Initial ECG Rhythm: Normal Sinus Comment Sinus rhythm with no ischemic ST elevation or depression. Secondary repolarization abnormality with apparent LVH. No significant abnormal intervals. (DEMETRA AGUILERA MD) Initial ECG Intervals: Normal Initial ECG Impression: Normal Comment Normal sinus rhythm without clinically relevant ST elevation or depression. (MOE MOBLEY) Diagnostic Imaging Diagonstic Imaging: Xray Plain Films/CT/US/NM/MRI: chest Comments Chest x-ray viewed by me and report reviewed. See report below: NAME: LUIS ROJAS MED REC#: [id number] PT STATUS: REG ER : 1940 PHYSICIAN: DEMETRA AGUILERA MD ADMIT DATE: 11/13/20/ER FS Cydney t Date of Exam:11/13/20 CHEST 1 VIEW AP/PA ONLY INDICATION: Chest pain COMPARISON STUDY: Chest from 05/10/2019. FINDINGS: Frontal view of the chest demonstrates increasing cardiomegaly. Vascularity is normal. No pleural effusions are present. IMPRESSION: There is increasing cardiomegaly. Dictated on workstation # [id number] Dict: 11/13/201831 Trans: 11/13/20 183 [facility] [id number] Interpreted by: YASMANY DANG MD (DEMETRA AGUILERA MD) Departure Communication (Admissions) Time/Spoke to Admitting Phy: 19:15 Discussed the case with Dr. Ferrari and ABG is pending. BMP is pending. She agrees to accept the patient cardiac stepdown with consultation to cardiology. Time/Spoke to Consulting Phy: 19:20 Discussed the case with Dr. Cavazos and he agrees to consult the case. He would like us to give her some nitroglycerin and if she responds to that put her on nitroglycerin paste (MOE MOBLEY) Impression Primary Impression: Acute coronary syndrome without high troponin Additional Impression: COPD exacerbation Disposition: ADMITTED INPATIENT Condition: Stable Admissions Decision to Admit Reason: Admit from ER (General) (2032) Decision to Admit/Date: Nov 13, 2020 Time/Decision to Admit Time: 19:15 (MOE MOBLEY) Departure-Patient Inst. Referrals: SELF,RY TOLEDO (PCP/Family) Primary Care Physician DEMETRA AGUILERA MD Nov 13, 2020 18:28 MOE MOBLEY Nov 13, 2020 19:21
--- NOTE | 2020-11-13 18:35 | Diagnostic Imaging Report ---
INDICATION: Chest pain COMPARISON STUDY: Chest from 05/10/2019. FINDINGS: Frontal view of the chest demonstrates increasing cardiomegaly. Vascularity is normal. No pleural effusions are present. IMPRESSION: There is increasing cardiomegaly. Dictated by: Dictated on workstation # [id number]
[2020-11-13 18:36] LABS: HEMATOCRIT 31 % (35-52); HEMOGLOBIN 10.1 G/DL (11.5-16.0); MEAN CORPUSCULAR HEMOGLOBIN 30 PG (25-34); MEAN CORPUSCULAR HGB CONC 33 G/DL (32-36); MEAN CORPUSCULAR VOLUME 93 FL (80-99); MEAN PLATELET VOLUME 9.9 FL (7.4-10.4); PLATELET COUNT 234 10^3/uL (130-400); WHITE BLOOD COUNT 10.4 10^3/uL (4.3-11.0)
[2020-11-13 18:37] LABS: BASOPHILS % (AUTO) 0 % (0-10); EOSINOPHILS # (AUTO) 0.2 10^3/uL (0.0-0.3); EOSINOPHILS % (AUTO) 2 % (0-10); LYMPHOCYTES # (AUTO) 2.2 X 10^3 (1.0-4.0); LYMPHOCYTES % (AUTO) 21 % (12-44); MONOCYTES # (AUTO) 1.2 X 10^3 (0.0-1.0); MONOCYTES % (AUTO) 11 % (0-12); NEUTROPHILS # (AUTO) 6.8 X 10^3 (1.8-7.8); NEUTROPHILS % (AUTO) 65 % (42-75)
[2020-11-13 19:02] LABS: CREATININE SERUM 1.28 MG/DL (0.60-1.30); POTASSIUM 4.3 MMOL/L (3.6-5.0)
[2020-11-13 19:03] LABS: ALBUMIN 3.9 GM/DL (3.2-4.5); BILIRUBIN,TOTAL 0.3 MG/DL (0.1-1.0); CALCIUM 9.4 MG/DL (8.5-10.1); MAGNESIUM 1.3 MG/DL (1.6-2.4); TOTAL PROTEIN 6.8 GM/DL (6.4-8.2)
[2020-11-13 19:07] LABS: PROTHROMBIN TIME PATIENT 13.1 SEC (12.2-14.7)
[2020-11-13] MEDS ORDERED: NITROGLYCERIN 0.4 MG SL TABS BTL 25'S SL PRN ×2 (19:30→22:15)
[2020-11-13] MEDS ORDERED: methylPREDNISolone 125 MG (Solu-MEDROL) VIAL IVP ONE (19:30)
[2020-11-13 19:45] LABS: ABG BASE EXCESS 5.8 MMOL/L (-2.5-2.5); ABG OXYGEN SATURATION 94 % (94-100); ABG PCO2 29 MMHG (35-45); ABG PH 7.58 (7.37-7.43); ABG PO2 59 MMHG (79-93); ABG TCO2 28.1 MMOL/L (21.0-31.0)
[2020-11-13 19:46] LABS: ALLENS TEST POSITIVE; INSPIRED O2 ROOM AIR; VENTILATOR NO
[2020-11-13 19:47] LABS: PATIENT TEMP 36.5
[2020-11-13] MEDS ORDERED: GABAPENTIN 100 MG (NEURONTIN) CAP PO ONE (20:00)
[2020-11-13] MEDS ORDERED: oxyCODONE/APAP 5/325MG (PERCOCET 5) TABLET PO ONE (20:00)
[2020-11-13] MEDS ORDERED: MAGNESIUM OXIDE (MAG-OX)400 MG TAB PO NR (22:00)
[2020-11-13] MEDS ORDERED: ACETAMINOPHEN 325 MG TABLET PO PRN (22:00)
[2020-11-13] MEDS ORDERED: ONDANSETRON 4 MG/2 ML (SDV) Z0FRAN IVP PRN (22:15)
[2020-11-13 22:20] VITALS: BP 111/71
[2020-11-13] MEDS: LACTATED RINGERS 1,000 ML IV SCH (23:16)
[2020-11-13 23:29] LABS: POTASSIUM 4.4 MMOL/L (3.6-5.0)
[2020-11-13 23:30] LABS: CALCIUM 9.6 MG/DL (8.5-10.1)
[2020-11-13 23:31] LABS: TOTAL PROTEIN 7.1 GM/DL (6.4-8.2)
[2020-11-13 23:33] LABS: BILIRUBIN,TOTAL 0.5 MG/DL (0.1-1.0)
[2020-11-13 23:35] LABS: CREATININE SERUM 1.53 MG/DL (0.60-1.30)
[2020-11-14] VITALS (8 sets, daily range): BP systolic 128–184; BP diastolic 76–103
[2020-11-14 00:55] LABS: TRIGLYCERIDES 167 MG/DL (<150); VLDL CHOLESTEROL 33 MG/DL (5-40)
[2020-11-14 01:00] LABS: CHOLESTEROL 122 MG/DL (< 200)
[2020-11-14 01:01] LABS: HDL CHOLESTEROL 50 MG/DL (40-60)
[2020-11-14] MEDS: morphine INJ 4 MG/ML 1 ML (VIAL/SYRINGE) IV PRN ×2 (05:16)
[2020-11-14 05:17] LABS: BASOPHILS % (AUTO) 0 % (0-10); EOSINOPHILS % (AUTO) 0 % (0-10); HEMATOCRIT 30 % (35-52); HEMOGLOBIN 9.4 g/dL (11.5-16.0); LYMPHOCYTES # (AUTO) 1.1 10^3/uL (1.0-4.0); LYMPHOCYTES % (AUTO) 16 % (12-44); MEAN CORPUSCULAR HEMOGLOBIN 30 pg (25-34); MEAN CORPUSCULAR HGB CONC 31 g/dL (32-36); MEAN CORPUSCULAR VOLUME 95 fL (80-99); MEAN PLATELET VOLUME 10.1 fL (9.0-12.2); MONOCYTES # (AUTO) 0.1 10^3/uL (0.0-1.0); MONOCYTES % (AUTO) 2 % (0-12); NEUTROPHILS # (AUTO) 5.3 10^3/uL (1.8-7.8); NEUTROPHILS % (AUTO) 81 % (42-75); PLATELET COUNT 201 10^3/uL (130-400); WHITE BLOOD COUNT 6.5 10^3/uL (4.3-11.0)
[2020-11-14 05:29] LABS: POTASSIUM 4.6 MMOL/L (3.6-5.0)
[2020-11-14 05:30] LABS: CALCIUM 9.2 MG/DL (8.5-10.1)
[2020-11-14 05:34] LABS: CREATININE SERUM 1.36 MG/DL (0.60-1.30)
--- NOTE | 2020-11-14 05:46 | History & Physical-Hospitalist ---
History of Present Illness HPI/Chief Complaint Chief complaint: Chest pain with reflux History of present illness: This is a 80-year-old white female clinic patient of Dr. Valero who presented to the [facility] with chest pain. She was short of breath and O2 sat was 90% upon arrival required IV steroids and nebulizer treatments which improved the shortness of breath but the chest pain remained. Troponin was negative. EKG showed no signs of STEMI. At this current time patient reports feeling about the same having a lot of reflux symptoms also and has had an EGD in the years past. She will undergo a stress test today by cardiology. EGD will be performed by Dr. Resendiz tomorrow. Source: patient, RN/MD, old records Date Seen 11/14/20 Time Seen by a Provider: 11:00 Attending Physician Yanni Ferrari Maxwell MD Referring Physician Date of Admission Nov 13, 2020 at 21:27 Home Medications & Allergies Home Medications Reviewed patient Home Medication Reconciliation performed by pharmacy medication reconciliations door technician and/or nursing. Patients Allergies have been reviewed. Allergies Allergies Coded Allergies methotrexate (Verified Allergy, Unknown, 11/13/20) Past Muoravy-Ivxfbp-Xgdcfy Hx Patient Social History Marrital Status: single Employed/Student: retired Smoking Status: Former Smoker Use of E-Cig and/or Vaping dev: No Substance use?: No Alcohol Use?: No Pt feels they are or have been: No Seasonal Allergies Seasonal Allergies: No Current Status Communicates: Verbally Primary Language: Indian Preferred Spoken Language: Indian Past Medical History Surgeries: Orthopedic Asthma, COPD Currently Using CPAP: No Currently Using BIPAP: No Coronary Artery Disease, Heart Attack, Hypertension Hiatal Hernia Fibromyalgia, Rheumatoid Arthritis, Back Injury Diabetes, Non-Insulin dep Blood Disorders: No Adverse Reaction/Blood Tranf: No HTN NIDDM HLD GERD Chronic anemia hypothyroidism Family Medical History No Pertinent Family Hx Review of Systems Constitutional: see HPI Respiratory: dyspnea on exertion, wheezing Cardiovascular: chest pain Physical Exam Physical Exam Vital Signs Vital Signs - First Documented 11/13/20 18:08 Temp 37.7 Pulse 89 Resp 16 B/P (MAP) 122/98 (106) Pulse Ox 92 O2 Delivery Room Air Capillary Refill : Less Than 3 Seconds Height, Weight, BMI Height: 5'0" Weight: 125lbs. oz. 56.290877wl; 28.50 BMI Method:Stated General Appearance: No Apparent Distress, Chronically ill, Obese Eyes: Right Eye Normal Inspection, Right Eye PERRL HEENT: PERRL/EOMI, Normal ENT Inspection, Pharynx Normal, Moist Mucous Membranes Neck: Full Range of Motion, Normal Inspection, Non Tender Respiratory: Chest Non Tender, Lungs Clear, Normal Breath Sounds, No Accessory Muscle Use, No Respiratory Distress Cardiovascular: Regular Rate, Rhythm, No Edema, No Gallop, No JVD, No Murmur, Normal Peripheral Pulses Gastrointestinal: Normal Bowel Sounds, No Organomegaly, No Pulsatile Mass, Non Tender, Soft Back: Normal Inspection, No CVA Tenderness, No Vertebral Tenderness Extremity: Normal Capillary Refill, Normal Inspection, Normal Range of Motion, Non Tender, No Calf Tenderness, No Pedal Edema Neurologic/Psychiatric: Alert, Oriented x3, No Motor/Sensory Deficits, Normal Mood/Affect Skin: Normal Color, Warm/Dry Lymphatic: No Adenopathy Results Results/Procedures Labs Laboratory Tests 11/13/20 18:20 11/13/20 23:00 11/14/20 04:57 Patient resulted labs reviewed. Assessment/Plan Admission Diagnosis Assessment: Chest pain Shortness of breath with exacerbation of COPD Former smoker Hypoxia Diabetes CAD Hypertension Hyperlipidemia Plan: Stress test today EGD tomorrow Monitor closely Admission Status: Observation Diagnosis/Problems Diagnosis/Problems (1) Acute coronary syndrome without high troponin Status: Acute (2) COPD exacerbation Status: Acute (3) Non-insulin treated type 2 diabetes mellitus Status: Chronic (4) Acute on chronic diastolic (congestive) heart failure Status: Acute (5) HLD (hyperlipidemia) Status: Chronic (6) HTN (hypertension) Status: Chronic (7) GERD (gastroesophageal reflux disease) YANNI FERRARI DO Nov 14, 2020 05:46
[2020-11-14] MEDS ORDERED: methylPREDNISolone 40 MG/ML (Solu-MEDROL) VIAL IV SCH (06:00)
[2020-11-14] MEDS: inSUlin ASPART (NovoLOG) 1 UNIT/0.01 ML (CHARGE PER UNIT) SC SCH ×4 (06:30→21:15)
[2020-11-14] MEDS: LACTATED RINGERS 1,000 ML IV SCH ×2 (08:06→23:58)
[2020-11-14] MEDS: ASPIRIN E.C. 81 MG (ECOTRIN) TAB PO SCH (08:06)
[2020-11-14] MEDS ORDERED: REGADENOSON 0.4 MG/5 ML SYR (LEXISCAN) IV ONE ×2 (08:30→14:33)
[2020-11-14] MEDS ORDERED: PANTOPRAZOLE 40 MG (PROTONIX) TAB PO ONE ×2 (11:00→13:07)
[2020-11-14] MEDS ORDERED: SUCRALFATE 1 GM (CARAFATE) TAB PO ONE (11:00)
--- NOTE | 2020-11-14 11:00 | Consultation-Cardiology ---
HPI-Cardiology Cardiology Consultation Date of Consultation 11/14/20 Date of Admission Time Seen by Provider: 08:00 Indication: Chest pain HPI 80-year-old lady with history of hypertension, hyperlipidemia, has been having recurrent chest pain reporting sore throat and mild diarrhea in addition to bleeding, has been having increasing dyspnea, reported pain in the retrosternal area and right area on her chest, worse with deep inspiration. She was seen in the emergency room and transferred for admission on my evaluation reporting that she is feeling better if she is laying down comfortably, not to have the pain with exertion and mainly with deep inspiration. Home Medications & Allergies Allergies: Coded Allergies: methotrexate (Verified Allergy, Unknown, 11/13/20) Home Medication List Reviewed: Yes YBL-Iqvagu-Tfrcty Hx Patient Social History Recreational Drug Use: No Smoking Status: Former Smoker Type Used: Cigarettes 2nd Hand Smoke Exposure: No Recent Hopitalizations: No Alcohol Use?: No Past Medical History Discussed below Family Medical History Significant Family History: No Pertinent Family Hx Family Medical Hx Noncontributory to her current condition Review of Systems-General Review of Systems Constitutional: no symptoms reported, weakness EENTM: see HPI, no symptoms reported Respiratory: see HPI; No cough; dyspnea on exertion; No hemoptysis, No orthopnea, No phlegm, No short of breath, No stridor, No wheezing, No other Cardiovascular: see HPI, chest pain; No edema, No Hx of Intervention, No palpitations, No syncope, No vascular heart diseas, No other Gastrointestinal: no symptoms reported, see HPI Genitourinary: no symptoms reported, see HPI Musculoskeletal: no symptoms reported Skin: no symptoms reported Psychiatric/Neurological: No Symptoms Reported Reviewed Test Results Reviewed Test Results Lab Laboratory Tests Test 11/13/20 18:20 11/13/20 18:30 11/13/20 19:41 11/13/20 22:19 Range/Units White Blood Count 10.4 4.3-11.0 10^3/uL Red Blood Count 3.36 L 4.35-5.85 10^6/uL Hemoglobin 10.1 L 11.5-16.0 G/DL Hematocrit 31 L 35-52 % Mean Corpuscular Volume 93 80-99 FL Mean Corpuscular Hemoglobin 30 25-34 PG Mean Corpuscular Hemoglobin Concent 33 32-36 G/DL Red Cell Distribution Width 16.3 H 10.0-14.5 % Platelet Count 234 130-400 10^3/uL Mean Platelet Volume 9.9 7.4-10.4 FL Immature Granulocyte % (Auto) 1 % Neutrophils (%) (Auto) 65 42-75 % Lymphocytes (%) (Auto) 21 12-44 % Monocytes (%) (Auto) 11 0-12 % Eosinophils (%) (Auto) 2 0-10 % Basophils (%) (Auto) 0 0-10 % Neutrophils # (Auto) 6.8 1.8-7.8 X 10^3 Lymphocytes # (Auto) 2.2 1.0-4.0 X 10^3 Monocytes # (Auto) 1.2 H 0.0-1.0 X 10^3 Eosinophils # (Auto) 0.2 0.0-0.3 10^3/uL Basophils # (Auto) 0.0 0.0-0.1 10^3/uL Immature Granulocyte # (Auto) 0.1 0.0-0.1 10^3/uL Sodium Level 137 135-145 MMOL/L Potassium Level 4.3 3.6-5.0 MMOL/L Chloride Level 100 98-107 MMOL/L Carbon Dioxide Level 26 21-32 MMOL/L Anion Gap 11 5-14 MMOL/L Blood Urea Nitrogen 16 7-18 MG/DL Creatinine 1.28 0.60-1.30 MG/DL Estimat Glomerular Filtration Rate 40 BUN/Creatinine Ratio 13 Glucose Level 189 H 70-105 MG/DL Calcium Level 9.4 8.5-10.1 MG/DL Corrected Calcium 9.5 8.5-10.1 MG/DL Magnesium Level 1.3 L 1.6-2.4 MG/DL Total Bilirubin 0.3 0.1-1.0 MG/DL Aspartate Amino Transf (AST/SGOT) 20 5-34 U/L Alanine Aminotransferase (ALT/SGPT) 9 0-55 U/L Alkaline Phosphatase 89 40-136 U/L Myoglobin 46.9 10.0-92.0 NG/ML Troponin I < 0.30 <0.30 NG/ML C-Reactive Protein 3.06 H <0.50 MG/DL Pro-B-Type Natriuretic Peptide 315.4 H <75.0 PG/ML Total Protein 6.8 6.4-8.2 GM/DL Albumin 3.9 3.2-4.5 GM/DL Triglycerides Level 167 H <150 MG/DL Cholesterol Level 122 < 200 MG/DL LDL Cholesterol Direct 39 1-129 MG/DL VLDL Cholesterol 33 5-40 MG/DL HDL Cholesterol 50 40-60 MG/DL Prothrombin Time 13.1 12.2-14.7 SEC INR Comment 1.0 0.8-1.4 Activated Partial Thromboplast Time 31 24-35 SEC D-Dimer 0.48 0.00-0.49 UG/ML Blood Gas Puncture Site RT RADIAL Blood Gas Patient Temperature 36.5 Arterial Blood pH 7.58 H 7.37-7.43 Arterial Blood Partial Pressure CO2 29 L 35-45 MMHG Arterial Blood Partial Pressure O2 59 L 79-93 MMHG Arterial Blood HCO3 27 23-27 MMOL/L Arterial Blood Total CO2 28.1 21.0-31.0 MMOL/L Arterial Blood Oxygen Saturation 94 94-100 % Arterial Blood Base Excess 5.8 H -2.5-2.5 MMOL/L [place] Test POSITIVE Blood Gas Ventilator Setting NO Blood Gas Inspired Oxygen ROOM AIR Influenza Type A (RT-PCR) Not Detected Not Detecte Influenza Type B (RT-PCR) Not Detected Not Detecte SARS-CoV-2 RNA (RT-PCR) Not Detected Not Detecte Test 11/13/20 23:00 11/14/20 04:57 11/14/20 06:25 Range/Units Sodium Level 137 137 135-145 MMOL/L Potassium Level 4.4 4.6 3.6-5.0 MMOL/L Chloride Level 100 100 98-107 MMOL/L Carbon Dioxide Level 22 22 21-32 MMOL/L Anion Gap 15 H 15 H 5-14 MMOL/L Blood Urea Nitrogen 16 17 7-18 MG/DL Creatinine 1.53 H 1.36 H 0.60-1.30 MG/DL Estimat Glomerular Filtration Rate 33 38 BUN/Creatinine Ratio 10 13 Glucose Level 317 H 325 H 70-105 MG/DL Calcium Level 9.6 9.2 8.5-10.1 MG/DL Corrected Calcium 9.6 8.5-10.1 MG/DL Total Bilirubin 0.5 0.1-1.0 MG/DL Aspartate Amino Transf (AST/SGOT) 18 5-34 U/L Alanine Aminotransferase (ALT/SGPT) 11 0-55 U/L Alkaline Phosphatase 84 40-136 U/L Troponin I < 0.028 <0.028 NG/ML Total Protein 7.1 6.4-8.2 GM/DL Albumin 4.0 3.2-4.5 GM/DL White Blood Count 6.5 4.3-11.0 10^3/uL Red Blood Count 3.14 L 3.80-5.11 10^6/uL Hemoglobin 9.4 L 11.5-16.0 g/dL Hematocrit 30 L 35-52 % Mean Corpuscular Volume 95 80-99 fL Mean Corpuscular Hemoglobin 30 25-34 pg Mean Corpuscular Hemoglobin Concent 31 L 32-36 g/dL Red Cell Distribution Width 16.8 H 10.0-14.5 % Platelet Count 201 130-400 10^3/uL Mean Platelet Volume 10.1 9.0-12.2 fL Immature Granulocyte % (Auto) 1 % Neutrophils (%) (Auto) 81 H 42-75 % Lymphocytes (%) (Auto) 16 12-44 % Monocytes (%) (Auto) 2 0-12 % Eosinophils (%) (Auto) 0 0-10 % Basophils (%) (Auto) 0 0-10 % Neutrophils # (Auto) 5.3 1.8-7.8 10^3/uL Lymphocytes # (Auto) 1.1 1.0-4.0 10^3/uL Monocytes # (Auto) 0.1 0.0-1.0 10^3/uL Eosinophils # (Auto) 0.0 0.0-0.3 10^3/uL Basophils # (Auto) 0.0 0.0-0.1 10^3/uL Immature Granulocyte # (Auto) 0.1 0.0-0.1 10^3/uL Glucometer 291 H 70-110 MG/DL Physical Exam Physical Exam Vital Signs Vital Signs - First Documented 11/13/20 18:08 Temp 37.7 Pulse 89 Resp 16 B/P (MAP) 122/98 (106) Pulse Ox 92 O2 Delivery Room Air Capillary Refill : Less Than 3 Seconds Height, Weight, BMI Height: 5'0" Weight: 125lbs. oz. 56.264262hk; 28.50 BMI Method:Stated General Appearance: No Apparent Distress, WD/WN Eyes: Bilateral Eye Normal Inspection, Bilateral Eye PERRL, Bilateral Eye EOMI HEENT: PERRL/EOMI, Normal ENT Inspection, Pharynx Normal Neck: Normal Inspection Respiratory: No Accessory Muscle Use, No Respiratory Distress; No Crackles; Decreased Breath Sounds (Right base), Rhonci, Wheezing, Other (Pain with palpation of the anterior chest) Cardiovascular: Regular Rate, Rhythm, No Edema, No Murmur Gastrointestinal: Non Tender, Soft; No Distended Back: Normal Inspection, No CVA Tenderness, No Vertebral Tenderness Extremity: Normal Inspection, No Calf Tenderness, No Pedal Edema, Other Neurologic/Psychiatric: Alert, Oriented x3, No Motor/Sensory Deficits, Normal 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, 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
[2020-11-14] MEDS ORDERED: FOLI1TAB33 PO (11:16)
[2020-11-14] MEDS ORDERED: DIPH25CA79 PO (11:16)
[2020-11-14] MEDS ORDERED: MELA10TA2 PO (11:16)
[2020-11-14] MEDS ORDERED: CLIN300C12 PO (11:16)
[2020-11-14] MEDS ORDERED: LEVO88TA54 PO (11:16)
[2020-11-14] MEDS ORDERED: VITA1TAB17 PO (11:16)
[2020-11-14] MEDS ORDERED: GABA300C PO (11:16)
[2020-11-14] MEDS ORDERED: CHOL100045 PO (11:23)
[2020-11-14] MEDS: SUCRALFATE 1 GM (CARAFATE) TAB PO SCH ×3 (13:10→21:14)
[2020-11-14] MEDS ORDERED: CATHETER FLUSH 10 ML SYR IV PRN (13:30)
[2020-11-14] MEDS: oxyCODONE/APAP 7.5-325 MG (PERCOCET 7.5) TABLET PO PRN ×4 (13:37→23:58)
--- NOTE | 2020-11-14 17:05 | Consultation - Surgery ---
History of Present Illness History of Present Illness Patient Consulted On(katelyn/time) 11/14/20 17:05 Date Seen by Provider: Nov 14, 2020 Time Seen by Provider: 17:05 Reason for Visit: Chest pain History of Present Illness Consult requested consult requested by Dr. Ferrari for heartburn. Patient is a 80-year-old female who has been ill for approximately 5 days she states. She has been having a cough that is worsening and has voice change that she states is usually related to staph infection. Patient was started on antibiotics but did not have any improvement. She is having low bit more shortness of breath with activity. Her pain and discomfort is in the middle of the chest without any radiation. Patient states for about the last month her reflux has gotten worse she thinks. 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 Patient is currently not having any nausea or vomiting fever sweats chills abdominal pain. She does have occasional diarrhea. Allergies and Home Medications Allergies Coded Allergies: methotrexate (Verified Allergy, Unknown, 11/13/20) Home Medications Aspirin 81 Mg Tablet.dr, 81 MG PO HS, (Reported) Last Action: Continued Atorvastatin Calcium 40 Mg Tablet, 40 MG PO HS, (Reported) Last Action: Continued Carvedilol 6.25 Mg Tablet, 6.25 MG PO BID, (Reported) Last Action: Continued Cholecalciferol (Vitamin D3) 25 Mcg Tablet, 25 MCG PO DAILY, (Reported) Last Action: Continued Clindamycin HCl 300 Mg Capsule, 300 MG PO TID, (Reported) FILLED 11-11-2020 #30/10 DAY SUPPLY Last Action: Held Diphenhydramine HCl 25 Mg Capsule, 50 MG PO HS, (Reported) Last Action: Converted Folic Acid 1 Mg Tablet, 1 MG PO HS, (Reported) Last Action: Continued Gabapentin 300 Mg Capsule, 300 MG PO QID, (Reported) Last Action: Continued Levothyroxine Sodium 88 Mcg Tablet, 88 MCG PO DAILY, (Reported) Last Action: Continued Losartan Potassium 25 Mg Tablet, 25 MG PO HS, (Reported) Last Action: Continued Melatonin 10 Mg Tablet, 10 MG PO HS, (Reported) Last Action: Continued Omeprazole 20 Mg Tablet.dr, 20 MG PO HS, (Reported) Last Action: Converted Oxycodone HCl/Acetaminophen 1 Each Tablet, 1 TAB PO Q4H PRN for PAIN-MODERATE (5-7), (Reported) Last Action: Continued Vitamin B Complex 1 Each Tablet, 1 EACH PO DAILY, (Reported) Last Action: Converted Patient Home Medication List Home Medication List Reviewed: Yes Past Unzpdjb-Iketnu-Mcnnbd Hx Patient Social History Smoking Status: Former Smoker Former Smoker, Quit: Dec 29, 1998 Type Used: Cigarettes 2nd Hand Smoke Exposure: No Recent Hopitalizations: No Alcohol Use?: No Seasonal Allergies Seasonal Allergies: No Surgeries History of Surgeries: Yes (heart cath; back surgery) Surgeries: Orthopedic Respiratory History of Respiratory Disorde: Yes Respiratory Disorders: Asthma, COPD Cardiovascular History of Cardiac Disorders: Yes ("broken heart syndrome", 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, history CHF) Cardiac Disorders: Coronary Artery Disease, Heart Attack, Hypertension Neurological History of Neurological Disord: No Reproductive System : No Hx Reproductive Disorders: No Genitourinary History of Genitourinary Disor: No Gastrointestinal History of Gastrointestinal Di: Yes Gastrointestinal Disorders: Hiatal Hernia Musculoskeletal History of Musculoskeletal Dis: Yes Musculoskeletal Disorders: Fibromyalgia, Rheumatoid Arthritis, Back Injury Endocrine History of Endocrine Disorders: Yes (states she is no longer diabetic) Endocrine Disorders: Diabetes, Non-Insulin dep HEENT History of HEENT Disorders: No Cancer History of Cancer: No Psychosocial History of Psychiatric Problem: No Integumentary History of Skin or Integumenta: No Blood Transfusions History of Blood Disorders: No Adverse Reaction to a Blood Tr: No Reviewed Nursing Assessment Reviewed/Agree w Nursing PMH: Yes Family Medical History Significant Family History: No Pertinent Family Hx Review of Systems-General Constitutional: No chills, No fever EENTM: No blurred vision, No double vision Respiratory: cough, short of breath Cardiovascular: chest pain; No palpitations Gastrointestinal: see HPI, diarrhea, heartburn; No nausea, No vomiting Genitourinary: No decreased output, No discharge Musculoskeletal: No back pain, No joint pain Skin: No change in color, No change in hair/nails Psychiatric/Neurological: Denies Anxiety, Denies Depressed, Denies Emotional Problems All Other Systems Reviewed Negative Unless Noted: Yes (Negative excepted noted.) Physical Exam-General Problems Physical Exam Vital Signs Vital Signs - First Documented 11/13/20 18:08 Temp 37.7 Pulse 89 Resp 16 B/P (MAP) 122/98 (106) Pulse Ox 92 O2 Delivery Room Air Capillary Refill : Less Than 3 Seconds General Appearance: WD/WN, no apparent distress HEENT: PERRL/EOMI, normal ENT inspection Neck: non-tender, supple Respiratory: chest non-tender, no respiratory distress, no accessory muscle use Cardiovascular: regular rate, rhythm, no JVD Gastrointestinal: soft, tenderness (minimal epigastric) Rectal: deferred Back: no CVA tenderness, no vertebral tenderness Extremities: non-tender, normal inspection, no pedal edema Neurologic/Psychiatric: alert, normal mood/affect, oriented x 3 Skin: normal color, warm/dry Lymphatic: no adenopathy Data Review Labs Laboratory Tests 11/13/20 18:20: White Blood Count 10.4, Red Blood Count 3.36L, Hemoglobin 10.1L, Hematocrit 31L, Mean Corpuscular Volume 93, Mean Corpuscular Hemoglobin 30, Mean Corpuscular Hemoglobin Concent 33, Red Cell Distribution Width 16.3H, Platelet Count 234, Mean Platelet Volume 9.9, Immature Granulocyte % (Auto) 1, Neutrophils (%) (Auto) 65, Lymphocytes (%) (Auto) 21, Monocytes (%) (Auto) 11, Eosinophils (%) (Auto) 2, Basophils (%) (Auto) 0, Neutrophils # (Auto) 6.8, Lymphocytes # (Auto) 2.2, Monocytes # (Auto) 1.2H, Eosinophils # (Auto) 0.2, Basophils # (Auto) 0.0, Immature Granulocyte # (Auto) 0.1, Sodium Level 137, Potassium Level 4.3, Chloride Level 100, Carbon Dioxide Level 26, Anion Gap 11, Blood Urea Nitrogen 16, Creatinine 1.28, Estimat Glomerular Filtration Rate 40, BUN/Creatinine Ratio 13, Glucose Level 189H, Calcium Level 9.4, Corrected Calcium 9.5, Magnesium Level 1.3L, Total Bilirubin 0.3, Aspartate Amino Transf (AST/SGOT) 20, Alanine Aminotransferase (ALT/SGPT) 9, Alkaline Phosphatase 89, Myoglobin 46.9, Troponin I < 0.30, C-Reactive Protein 3.06H, Pro-B-Type Natriuretic Peptide 315.4H, Total Protein 6.8, Albumin 3.9, Triglycerides Level 167H, Cholesterol Level 122, LDL Cholesterol Direct 39, VLDL Cholesterol 33, HDL Cholesterol 50, Coronavirus (COVID-19)(PCR) Negative 11/13/20 18:30: Prothrombin Time 13.1, INR Comment 1.0, Activated Partial Thromboplast Time 31, D-Dimer 0.48 11/13/20 19:41: Blood Gas Puncture Site RT RADIAL, Blood Gas Patient Temperature 36.5, Arterial Blood pH 7.58H, Arterial Blood Partial Pressure CO2 29L, Arterial Blood Partial Pressure O2 59L, Arterial Blood HCO3 27, Arterial Blood Total CO2 28.1, Arterial Blood Oxygen Saturation 94, Arterial Blood Base Excess 5.8H, [place] Test POSITIVE, Blood Gas Ventilator Setting NO, Blood Gas Inspired Oxygen ROOM AIR 11/13/20 22:19: Influenza Type A (RT-PCR) Not Detected, Influenza Type B (RT-PCR) Not Detected, SARS-CoV-2 RNA (RT-PCR) Not Detected 11/13/20 23:00: Sodium Level 137, Potassium Level 4.4, Chloride Level 100, Carbon Dioxide Level 22, Anion Gap 15H, Blood Urea Nitrogen 16, Creatinine 1.53H, Estimat Glomerular Filtration Rate 33, BUN/Creatinine Ratio 10, Glucose Level 317H, Calcium Level 9.6, Corrected Calcium 9.6, Total Bilirubin 0.5, Aspartate Amino Transf (AST/SGOT) 18, Alanine Aminotransferase (ALT/SGPT) 11, Alkaline Phosphatase 84, Troponin I < 0.028, Total Protein 7.1, Albumin 4.0 11/14/20 04:57: Sodium Level 137, Potassium Level 4.6, Chloride Level 100, Carbon Dioxide Level 22, Anion Gap 15H, Blood Urea Nitrogen 17, Creatinine 1.36H, Estimat Glomerular Filtration Rate 38, BUN/Creatinine Ratio 13, Glucose Level 325H, Calcium Level 9.2, White Blood Count 6.5, Red Blood Count 3.14L, Hemoglobin 9.4L, Hematocrit 30L, Mean Corpuscular Volume 95, Mean Corpuscular Hemoglobin 30, Mean Corpuscular Hemoglobin Concent 31L, Red Cell Distribution Width 16.8H, Platelet Count 201, Mean Platelet Volume 10.1, Immature Granulocyte % (Auto) 1, Neutrophils (%) (Auto) 81H, Lymphocytes (%) (Auto) 16, Monocytes (%) (Auto) 2, Eosinophils (%) (Auto) 0, Basophils (%) (Auto) 0, Neutrophils # (Auto) 5.3, Lymphocytes # (Auto) 1.1, Monocytes # (Auto) 0.1, Eosinophils # (Auto) 0.0, Basophils # (Auto) 0.0, Immature Granulocyte # (Auto) 0.1 11/14/20 06:25: Glucometer 291H 11/14/20 12:08: Glucometer 165H 11/14/20 16:36: Glucometer 261H Microbiology 11/13/20 Influenza Types A,B Antigen (ESTRELLITA) - Final, Complete Assessment/Plan Assessment/Plan Assessment/Plan Chest pain GERD COPD Cough Patient had stress test today. Dr. Kristen Edwards just discussed with him and he is planning on doing a heart cath in the morning. If no significant findings likely to have EGD tomorrow. Patient was discussed risk and benefits of having EGD which she understands and consent obtained. To continue on current Protonix. N.p.o. after midnight in case we can proceed with EGD. Await Dr. Kristen atkins tomorrow. AUDREY FUENTES DO Nov 14, 2020 17:05
--- NOTE | 2020-11-14 17:43 | Cardiology Stress Test Report ---
Stress Test Report Date of Procedure/Referring: Date of Procedure: Nov 14, 2020 PCP Yanni Ferrari DO Admitting Physician Javier Valero MD Indications: Chest pain Baseline Blood Pressure: Blood Pressure Systolic: 184 Blood Pressure Diastolic: 103 Baseline Vitals Vital Signs Date Time Temp Pulse Resp B/P (MAP) Pulse Ox O2 Delivery O2 Flow Rate FiO2 11/13/20 18:08 37.7 89 16 122/98 (106) 92 Room Air Baseline EKG: Baseline EKG: NSR Summary After explaining the procedure to the patient, she signed a consent and then brought to the stress nuclear laboratory. Patient received 0.4 mg Lexiscan for stress test, ECG, heart rate and blood pressure were monitored continuously. Resting and stress dose of radio tracer were injected, imaging was acquired and reviewed in short axis, horizontal long axis and vertical long axis views. TID: 0.98 SSS: 5 SDS: 5 EF: 73 1. Patient tolerated test well 2. Breast attenuation with mild ischemia of the basal to mid anterior wall with mild reversibility 3. Normal left ventricular size, EF 73% SUSHIL AMOS MD Nov 14, 2020 17:43
[2020-11-14] MEDS ORDERED: MELATONIN 10 MG TABLET PO SCH (21:00)
[2020-11-14] MEDS ORDERED: NON-FORMULARY MEDICATION 1 EA EA (Diphenhydramine HCl (Benadryl) 50 MG) PO SCH (21:00)
[2020-11-14] MEDS ORDERED: diphenhydrAMINE 25 MG TAB (BENADRYL) PO SCH (21:00)
[2020-11-14] MEDS ORDERED: ASPIRIN E.C. 81 MG (ECOTRIN) TAB PO SCH (21:00)
[2020-11-14] MEDS ORDERED: LOSARTAN 25 MG (COZAAR) TAB PO SCH (21:00)
[2020-11-14] MEDS ORDERED: FOLIC ACID 1 MG TAB PO SCH (21:00)
[2020-11-14] MEDS: GABAPENTIN 300 MG (NEURONTIN) CAP PO SCH (21:13)
[2020-11-14] MEDS: methylPREDNISolone 40 MG/ML (Solu-MEDROL) VIAL IV SCH (21:15)
[2020-11-15] VITALS (17 sets, daily range): BP systolic 128–180; BP diastolic 64–88
[2020-11-15] MEDS: SUCRALFATE 1 GM (CARAFATE) TAB PO SCH ×3 (06:26→16:25)
[2020-11-15] MEDS ORDERED: LEVOTHYROXINE 88 MCG (LEVOTHORID) TAB PO SCH (06:30)
[2020-11-15 06:38] LABS: BASOPHILS % (AUTO) 0 % (0-10); EOSINOPHILS % (AUTO) 0 % (0-10); HEMATOCRIT 27 % (35-52); HEMOGLOBIN 8.9 g/dL (11.5-16.0); LYMPHOCYTES # (AUTO) 1.4 10^3/uL (1.0-4.0); LYMPHOCYTES % (AUTO) 13 % (12-44); MEAN CORPUSCULAR HEMOGLOBIN 31 pg (25-34); MEAN CORPUSCULAR HGB CONC 33 g/dL (32-36); MEAN CORPUSCULAR VOLUME 94 fL (80-99); MEAN PLATELET VOLUME 10.1 fL (9.0-12.2); MONOCYTES # (AUTO) 0.3 10^3/uL (0.0-1.0); MONOCYTES % (AUTO) 3 % (0-12); NEUTROPHILS % (AUTO) 83 % (42-75); PLATELET COUNT 230 10^3/uL (130-400); WHITE BLOOD COUNT 10.8 10^3/uL (4.3-11.0)
[2020-11-15] MEDS ORDERED: MULTIVIT W/MINERALS TAB (THERAGRAN M) PO SCH (07:00)
[2020-11-15 07:01] LABS: ALBUMIN 3.4 GM/DL (3.2-4.5)
[2020-11-15 07:02] LABS: CALCIUM 8.5 MG/DL (8.5-10.1)
[2020-11-15 07:03] LABS: TOTAL PROTEIN 6.1 GM/DL (6.4-8.2)
[2020-11-15 07:05] LABS: BILIRUBIN,TOTAL 0.2 MG/DL (0.1-1.0)
[2020-11-15] MEDS: inSUlin ASPART (NovoLOG) 1 UNIT/0.01 ML (CHARGE PER UNIT) SC SCH ×2 (07:05→16:03)
[2020-11-15 07:07] LABS: CREATININE SERUM 0.91 MG/DL (0.60-1.30)
[2020-11-15] MEDS: LACTATED RINGERS 1,000 ML IV SCH (07:25)
[2020-11-15] MEDS ORDERED: VITAMIN D3 25 MCG (1,000 UNITS) TABLET PO SCH (09:00)
[2020-11-15] MEDS ORDERED: NON-FORMULARY MEDICATION 1 EA EA (Vitamin B Complex 1 EACH) PO SCH (09:00)
[2020-11-15] MEDS ORDERED: PANTOPRAZOLE 40 MG (PROTONIX) TAB PO SCH (09:00)
[2020-11-15] MEDS ORDERED: fentaNYL INJ 100 MCG/2 ML AMP ONE (09:02)
[2020-11-15] MEDS ORDERED: LIDOCAINE 2% 20 ML (XYLOCAINE) VIAL ONE (09:02)
[2020-11-15] MEDS ORDERED: HEParin (CATH LAB) 2,000 ML IV ONE (09:02)
[2020-11-15] MEDS ORDERED: MIDAZOLAM 5 MG/5 ML (VERSED) VIAL ONE (09:02)
[2020-11-15] MEDS ORDERED: NS IV 1000 ML 0 ML ONE (09:03)
[2020-11-15] MEDS ORDERED: HEParin 1000 UNIT/ML (10ML VIAL) FOR BOLUS ONE (09:17)
[2020-11-15] MEDS ORDERED: LIDOCAINE 1% INJ 20 ML 20 ML VIAL ONE (09:17)
[2020-11-15] MEDS ORDERED: VERAPAMIL 5 MG/2 ML (CALAN) VIAL IV ONE (09:17)
[2020-11-15] MEDS ORDERED: NITRO DRIP 25000 MCG/D5W 250 ML IV ONE (09:18)
--- NOTE | 2020-11-15 09:43 | Conscious Sedation/ASA ---
Conscious Sedation Pre-Proced Time 09:43 ASA Score 3 For ASA 3 and 4: Consider anesthesia and medical clearance. Also, for patients with a history of failed moderate sedation consider anesthesia. Airway Lungs Heart ASA score ASA 1: a normal healthy patient ASA 2: a patient with a mild systemic disease (mid diabetes, controlled hypertension, obesity x ASA 3: a patient with a severe systemic disease that limits activity (angina, COPD, prior Myocardial infarction) ASA 4: a patient with an incapacitating disease that is a constant threat to life (CHF, renal failure) ASA 5: a moribund patient not expected to survive 24 hrs. (ruptured aneurysm) ASA 6: a declared brain- patient whose organs are being harvested. For emergent operations, add the letter E after the classification Mallampati Classification Grade 3 Sedation Plan Analgesia, Amnesia, Plan communicated to team members, Discussed options with patient/fam, Discussed risks with patient/fam The patient is an appropriate candidate to undergo the planned procedure, sedation, and anesthesia. The patient immediately re-assessed prior to indication. SUSHIL AMOS MD Nov 15, 2020 9:43 am
[2020-11-15] MEDS ORDERED: NS IV 1000 ML 1,000 ML IV SCH (09:45)
--- NOTE | 2020-11-15 09:47 | Cardiac Cath Report ---
Cardiac Cath Report Physician (s)/Guide Cruise (s) Physician SUSHIL AMOS MD Pre-Procedure Diagnosis Pre-Procedure Diagnosis: Coronary artery disease Post-Procedure Note Procedure Start Date: Nov 15, 2020 Name of Procedure: Left heart catheterization Aortic arch angiogram Findings/Procedure Note PROCEDURE NOTE: 80-year-old lady with significant recurrent chest pain, had an abnormal stress test, scheduled for cardiac catheterization possible PTCA. After explaining the procedure to the patient, all pros and cons were explained, all questions were answered. The patient signed the consent and then she was placed on the cardiac catheterization laboratory. Groin was prepped SL fashion local anesthesia was used. Sheath placed in the right radial artery, [place] catheter was advanced to the left ventricular cavity, pressure was measured, pullback LV to aorta was done, intubated the coronary system and angiogram was done then pulled back to the aortic arch and aortic arch angiogram was done to evaluate the causes of her significant recurrent pain especially with the tortuosity noted in the brachiocephalic artery during the procedure At the end of the procedure the sheath was removed. Vascular band deployed FINDINGS: Hemodynamics LV 105/7, end-diastolic pressure of 7 Aorta 92/50 mean of 69 ANATOMY: Left Main is free of obstructive disease Left Anterior Descending has 40 to 50% proximal stenosis nonobstructive disease Left Circumflex has mild disease nonobstructive disease Right Coronary Artery has mild disease nonobstructive disease LV Gram was not done pressure was measured Aorta evaluation done with aortic arch angiogram showing normal aortic arch, no dissection or aneurysm, normal origin of the brachiocephalic artery with some tortuosity no significant obstructive disease, normal left carotid and left subclavian arteries CONCLUSION: 1. Mild to moderate disease in the proximal LAD otherwise mild coronary disease nonobstructive disease 2. Normal left ventricular end-diastolic pressure 3. Normal aortic arch and great vessels of the neck DISCUSSION AND RECOMMENDATION: Chest pain is probably not cardiac, medical therapy is recommended Anesthesia Type: Conscious Sedation Estimated blood loss (mL): 10 ml Contrast Amount: 45 ml Total Radiation Dose: 208 mGy Post-Procedure Diagnosis Post-operative diagnosis: Chest pain Coronary artery disease Hypertension Hyperlipidemia SUSHIL AMOS MD Nov 15, 2020 9:47 am
--- NOTE | 2020-11-15 09:58 | Cardiology Progress Note ---
Subjective Date Seen by Provider: Nov 15, 2020 Time Seen by Provider: 09:57 Subjective/Events-last exam Patient is seen and evaluated, feeling better. No new complaint Review of Systems General: No Chills, No Night Sweats, No Fatigue, No Malaise, No Appetite, No Other HEENT: No Head Aches, No Visual Changes, No Eye Pain, No Ear Pain, No Dysphasia, No Sinus Congestion, No Post Nasal Drip, No Sore Throat, No Other Pulmonary: No Dyspnea, No Cough, No Pleuritic Chest Pain, No Other Cardiovascular: Chest Pain; No: Palpitations, Orthopnea, Paroxysmal Noc. Dyspnea, Edema, Lt Headedness, Other Objective-Cardiology Exam Last Set of Vital Signs Vital Signs 11/15/20 08:00 Temp 36.5 Pulse 78 Resp 16 B/P (MAP) 154/86 (108) Pulse Ox 94 O2 Delivery Nasal Cannula Capillary Refill : Less Than 3 Seconds I&O Intake and Output 11/15/20 00:00 Intake Total 200 ml Balance 200 ml Intake Oral 200 ml # Voids 8 General: Alert, Oriented X3, Cooperative HEENT: Atraumatic, PERRLA Neck: Supple, No JVD, No Thyromegaly Lungs: Clear to Auscultation, Normal Air Movement Heart: Regular Rate, Normal S1, Normal S2, No Murmurs Abdomen: Normal Bowel Sounds, Soft, No Tenderness, No Hepatosplenomegaly, No Masses Extremities: No Clubbing, No Cyanosis, No Edema, Normal Pulses, No Tenderness/Swelling Skin: No Rashes, No Breakdown, No Significant Lesion Neuro: Normal Gait, Normal Speech, Strength at 5/5 X4 Ext, Normal Tone, Sensation Intact Psych/Mental Status: Mental Status NL, Mood NL Results Lab Laboratory Tests 11/15/20 06:20 A/P-Cardiology Admission Diagnosis Chest pain Hypertension Hyperlipidemia Chronic renal insufficiency Assessment/Plan Chest pain nonspecific etiology, had mildly abnormal stress test, cardiac catheterization was carried out showing mild to moderate disease nonobstructive disease, planning for EGD today. Coronary artery disease, cardiac catheterization done showing 40 to 50% proximal LAD stenosis nonobstructive disease otherwise mild coronary artery disease, normal aortic arch, some tortuosity in the brachiocephalic artery with no s ignificant obstructive disease in the carotids. Continue to monitor Hypertension, better controlled at this time, continue to monitor blood pressure Chronic kidney disease stage III, chronic renal insufficiency, monitor renal function SUSHIL AMOS MD Nov 15, 2020 9:58 am
[2020-11-15] MEDS ORDERED: PRED10TA22 PO (11:44)
--- NOTE | 2020-11-15 11:44 | Discharge Summary ---
Discharge Summary Hospital Course Was the Problem List Reviewed?: Yes Problems/Dx: (1) Acute coronary syndrome without high troponin Status: Acute (2) COPD exacerbation Status: Acute (3) Non-insulin treated type 2 diabetes mellitus Status: Chronic (4) Acute on chronic diastolic (congestive) heart failure Status: Acute (5) HLD (hyperlipidemia) Status: Chronic (6) HTN (hypertension) Status: Chronic (7) GERD (gastroesophageal reflux disease) Qualifiers: Qualified Codes: K21.9 - Gastro-esophageal reflux disease without esophagitis Hospital Course Date of Admission: Nov 13, 2020 at 21:27 Admission Diagnosis : Family Physician/Provider: Javier Valero MD Date of Discharge: 11/15/20 Discharge Diagnosis: Chest pain with normal stress test, gastritis with healing ulcers on EGD Hospital Course: Short hospital course she was admitted for chest pain ruled out acute coronary syndrome and stress test was negative. EGD performed showing healing ulcers and gastritis so medication was given by Dr. Resendiz and she was discharged in improved condition. Labs and Pending Lab Test: Laboratory Tests 11/14/20 12:08: Glucometer 165H 11/14/20 16:36: Glucometer 261H 11/14/20 20:26: Glucometer 201H 11/15/20 06:20: White Blood Count 10.8, Red Blood Count 2.91L, Hemoglobin 8.9L, Hematocrit 27L, Mean Corpuscular Volume 94, Mean Corpuscular Hemoglobin 31, Mean Corpuscular Hemoglobin Concent 33, Red Cell Distribution Width 16.7H, Platelet Count 230, Mean Platelet Volume 10.1, Immature Granulocyte % (Auto) 1, Neutrophils (%) (Auto) 83H, Lymphocytes (%) (Auto) 13, Monocytes (%) (Auto) 3, Eosinophils (%) (Auto) 0, Basophils (%) (Auto) 0, Neutrophils # (Auto) 9.0H, Lymphocytes # (Auto) 1.4, Monocytes # (Auto) 0.3, Eosinophils # (Auto) 0.0, Basophils # (Auto) 0.0, Immature Granulocyte # (Auto) 0.1, Sodium Level 140, Potassium Level 4.0, Chloride Level 106, Carbon Dioxide Level 23, Anion Gap 11, Blood Urea Nitrogen 16, Creatinine 0.91, Estimat Glomerular Filtration Rate 60, BUN/Creatinine Ratio 18, Glucose Level 208H, Calcium Level 8.5, Corrected Calcium 9.0, Total Bilirubin 0.2, Aspartate Amino Transf (AST/SGOT) 16, Alanine Aminotransferase (ALT/SGPT) 9, Alkaline Phosphatase 69, Total Protein 6.1L, Albumin 3.4 11/15/20 10:29: Glucometer 187H Microbiology 11/13/20 Influenza Types A,B Antigen (ESTRELLITA) - Final, Complete Home Meds Active Prednisone 10 Mg Tab.ds.pk 20 Mg PO DAILY Reported Vitamin D3 (Cholecalciferol (Vitamin D3)) 25 Mcg Tablet 25 Mcg PO DAILY Benadryl (Diphenhydramine HCl) 25 Mg Capsule 50 Mg PO HS Melatonin 10 Mg Tablet 10 Mg PO HS Levothyroxine Sodium 88 Mcg Tablet 88 Mcg PO DAILY Neurontin (Gabapentin) 300 Mg Capsule 300 Mg PO QID Clindamycin HCl 300 Mg Capsule 300 Mg PO TID FILLED 11-11-2020 #30/10 DAY SUPPLY Folic Acid 1 Mg Tablet 1 Mg PO HS Vitamin B Complex 1 Each Tablet 1 Each PO DAILY Omeprazole 20 Mg Tablet.dr 20 Mg PO HS Aspirin EC (Aspirin) 81 Mg Tablet.dr 81 Mg PO HS Atorvastatin Calcium 40 Mg Tablet 40 Mg PO HS Losartan Potassium 25 Mg Tablet 25 Mg PO HS Oxycodon-Acetaminophen 7.5-325 (Oxycodone HCl/Acetaminophen) 1 Each Tablet 1 Tab PO Q4H PRN Carvedilol 6.25 Mg Tablet 6.25 Mg PO BID Assessment/Pt Instructions [facility] in 1 week Discharge Planning: <30 minutes discharge planning Discharge Physical Examination Vital Signs Vital Signs Date Time Temp Pulse Resp B/P (MAP) Pulse Ox O2 Delivery O2 Flow Rate FiO2 11/15/20 09:00 95 Room Air 11/15/20 08:00 36.5 78 16 154/86 (108) General Appearance: No Apparent Distress, WD/WN Allergies: Coded Allergies: methotrexate (Verified Allergy, Unknown, 11/13/20) Discharge Summary Date of Admission Nov 13, 2020 at 21:27 Date of Discharge Discharge Date: Nov 15, 2020 Admission Diagnosis Assessment: Chest pain Shortness of breath with exacerbation of COPD Former smoker Hypoxia Diabetes CAD Hypertension Hyperlipidemia Plan: Stress test today EGD tomorrow Monitor closely Discharge Diagnosis (1) Acute coronary syndrome without high troponin Status: Acute (2) COPD exacerbation Status: Acute (3) Non-insulin treated type 2 diabetes mellitus Status: Chronic (4) Acute on chronic diastolic (congestive) heart failure Status: Acute (5) HLD (hyperlipidemia) Status: Chronic (6) HTN (hypertension) Status: Chronic (7) GERD (gastroesophageal reflux disease) Qualifiers: Qualified Codes: K21.9 - Gastro-esophageal reflux disease without esophagitis DASHA PRIEST DO Nov 15, 2020 11:44
[2020-11-15] MEDS ORDERED: proPOfol 200 MG/20 ML (DIPRIVAN) VIAL IV ONE (12:02)
--- NOTE | 2020-11-15 12:05 | Progress Note - Surgery ---
Subjective Date Seen by a Provider: Nov 15, 2020 Time Seen by a Provider: 12:02 Subjective/Events-last exam Patient still with epigastric pain/chest pain. Reflux still seems bad. Has no other complaints. Denies n/v fever sweats chills at this time. Had hear cath today and discussed with jennifer Aguirre with proceeding with EGD. Objective Exam Vital Signs Date Time Temp Pulse Resp B/P (MAP) Pulse Ox O2 Delivery O2 Flow Rate FiO2 11/15/20 09:00 95 Room Air 11/15/20 08:00 36.5 78 16 154/86 (108) 94 Nasal Cannula 11/15/20 07:00 67 11/15/20 04:00 36.6 80 14 144/86 (105) 94 Nasal Cannula 11/15/20 01:00 60 11/15/20 00:00 74 15 180/76 (110) 96 Nasal Cannula 11/14/20 21:00 95 Room Air 11/14/20 20:00 36.8 77 14 176/82 (113) 94 Room Air 11/14/20 19:53 36.8 81 16 152/102 (119) 96 Room Air 11/14/20 19:00 83 11/14/20 16:00 36.6 87 16 184/103 (130) 96 Room Air 11/14/20 15:09 78 14 182/97 (125) 96 11/14/20 14:06 94 Room Air 11/14/20 13:00 75 11/14/20 12:36 36.7 73 18 168/91 (116) 94 Room Air I & O 11/15/20 07:00 Intake Total 200 ml Balance 200 ml Capillary Refill : Less Than 3 Seconds General Appearance: No Apparent Distress, Chronically ill, Obese HEENT: PERRL/EOMI, Normal ENT Inspection, Pharynx Normal, Moist Mucous Membranes Neck: Full Range of Motion, Normal Inspection, Non Tender Respiratory: Chest Non Tender, No Accessory Muscle Use, No Respiratory Distress Cardiovascular: Regular Rate, Rhythm, No JVD, Normal Peripheral Pulses Gastrointestinal: soft, tenderness (minimal epigastric) Extremity: Normal Capillary Refill, Normal Inspection, Normal Range of Motion, Non Tender, No Calf Tenderness, No Pedal Edema Neurologic/Psychiatric: Alert, Oriented x3, No Motor/Sensory Deficits, Normal Mood/Affect Skin: Normal Color, Warm/Dry Lymphatic: No Adenopathy Results Lab Laboratory Tests 11/14/20 12:08: Glucometer 165H 11/14/20 16:36: Glucometer 261H 11/14/20 20:26: Glucometer 201H 11/15/20 06:20: White Blood Count 10.8, Red Blood Count 2.91L, Hemoglobin 8.9L, Hematocrit 27L, Mean Corpuscular Volume 94, Mean Corpuscular Hemoglobin 31, Mean Corpuscular Hemoglobin Concent 33, Red Cell Distribution Width 16.7H, Platelet Count 230, Mean Platelet Volume 10.1, Immature Granulocyte % (Auto) 1, Neutrophils (%) (Auto) 83H, Lymphocytes (%) (Auto) 13, Monocytes (%) (Auto) 3, Eosinophils (%) (Auto) 0, Basophils (%) (Auto) 0, Neutrophils # (Auto) 9.0H, Lymphocytes # (Auto) 1.4, Monocytes # (Auto) 0.3, Eosinophils # (Auto) 0.0, Basophils # (Auto) 0.0, Immature Granulocyte # (Auto) 0.1, Sodium Level 140, Potassium Level 4.0, Chloride Level 106, Carbon Dioxide Level 23, Anion Gap 11, Blood Urea Nitrogen 16, Creatinine 0.91, Estimat Glomerular Filtration Rate 60, BUN/Creatinine Ratio 18, Glucose Level 208H, Calcium Level 8.5, Corrected Calcium 9.0, Total Bilirubin 0.2, Aspartate Amino Transf (AST/SGOT) 16, Alanine Aminotransferase (ALT/SGPT) 9, Alkaline Phosphatase 69, Total Protein 6.1L, Albumin 3.4 11/15/20 10:29: Glucometer 187H Microbiology 11/13/20 Influenza Types A,B Antigen (ESTRELLITA) - Final, Complete Assessment/Plan Assessment/Plan Assessment/Plan Chest pain GERD COPD Cough Discussed with jennifer Aguirre with proceeding with EGD. She understands risks and benefits and wishes to proceed for further evaluation. ASHUTOSHO AUDREY FUENTES DO Nov 15, 2020 12:04
--- NOTE | 2020-11-15 12:26 | Progress Note-Post Operative ---
Post-Operative Progess Note Surgeon (s)/Die Trimmer (s) Surgeon AUDREY FUENTES DO Die Trimmer: na Pre-Operative Diagnosis gerd Post-Operative Diagnosis hiatal hernia, gastritis, small healing ulcers Procedure & Operative Findings Date of Procedure 11/15/20 Procedure Performed/Findings egd c biopsies Anesthesia Type per cold reduction roller Estimated Blood Loss Estimated blood loss (mL): minimal Specimens/Packing Specimens Removed antrum, body, ge AUDREY FUENTES DO Nov 15, 2020 12:26
[2020-11-15] MEDS ORDERED: PANT40TA2 PO (12:28)
[2020-11-15] MEDS ORDERED: SUCR1TAB36 PO (12:28)
--- NOTE | 2020-11-15 15:09 | Anesthesia-General Post-Op ---
MAC Patient Condition Mental Status/LOC: Same as Preop Cardiovascular: Satisfactory Nausea/Vomiting: Absent Respiratory: Satisfactory Pain: Controlled Complications: Absent Post Op Complications Complications None Follow Up Care/Instructions Patient Instructions None needed. Anesthesiology Discharge Order Discharge Order Patient is doing well, no complaints, stable vital signs, no apparent adverse anesthesia problems. No complications reported per nursing. GAVIN GAYTAN CRNA Nov 15, 2020 15:09
[2020-11-15] MEDS: ASPIRIN E.C. 81 MG (ECOTRIN) TAB PO SCH (16:01)
[2020-11-15] MEDS: GABAPENTIN 300 MG (NEURONTIN) CAP PO SCH ×3 (16:02→17:35)
[2020-11-15] MEDS: methylPREDNISolone 40 MG/ML (Solu-MEDROL) VIAL IV SCH (16:25)
[2020-11-15] MEDS: oxyCODONE/APAP 7.5-325 MG (PERCOCET 7.5) TABLET PO PRN (16:25)
--- NOTE | 2020-11-15 17:58 | OPERATIVE REPORT ---
DATE OF SERVICE: 11/15/2020 PREOPERATIVE DIAGNOSES: Gastroesophageal reflux disease and chest pain. POSTOPERATIVE DIAGNOSES: Hiatal hernia, gastritis and small healing ulcers. PROCEDURES PERFORMED: EGD with biopsy. SURGEON: Audrey Resendiz DO. ANESTHESIA: Per CORRUGATOR OPERATOR. ESTIMATED BLOOD LOSS: None. COMPLICATIONS: None. INDICATIONS FOR PROCEDURE: The patient is a 80-year-old female, who is having chest pain and worsening GERD symptoms over the last month. She understands the risks and benefits of the procedure and wished to proceed with the procedure. Consent was signed in the chart. She also had a cardiac catheterization earlier, with Dr. Peterson, who was okay with proceeding with EGD. DESCRIPTION OF PROCEDURE: The patient was taken to the endoscopy suite, placed in left lateral recumbent position. Timeout was performed. Scope was inserted in mouth, down the esophagus, stomach and into the duodenum without difficulty. There were no polyps, masses or ulcerations within the duodenum. Scope was slowly retracted back into the stomach, where it was further insufflated. Small healing ulcers apparent and also with findings of gastritis present, biopsy of the antrum and body were obtained. Scope was retroflexed noting no hiatal hernia, no other pathology. Scope was returned to its normal position, slowly withdrawn to distal esophagus. No polyps, masses or ulcerations. Slightly erythematous change was present. Biopsy of the GE junction was obtained. Scope was then slowly retracted back until completely removed noting no other pathology. The patient tolerated the procedure well without any complications. She was taken to recovery room in stable condition. RECOMMENDATIONS: The patient will continue on Protonix and Carafate. She will follow up on biopsies in approximately two weeks. Medical management. Job ID: [id number] DocumentID: [id number] Dictated Date: 11/15/2020 12:46:41 Bottom Filler Date: 11/15/2020 17:57:24 Dictated By: AUDREY RESENDIZ DO [facility]
== END 2020-11-15 18:35 | disposition home or self-care (01) ==
LOC: EDUNIT# 17:56 → ER FS 17:59 → CSD 21:27 → UNDOADMOB 21:27 → CATH 22:20 → CSD 22:20 → UNDODISOB 11-15 18:35 → CATH 11-15 18:35
PROVIDERS: ATTEND Internal Medicine
DX: K21.00 Gastro-esophageal reflux disease with esophagitis, without bleeding (principal); I24.9 Acute ischemic heart disease, unspecified; K44.9 Diaphragmatic hernia without obstruction or gangrene; K25.9 Gastric ulcer, unspecified as acute or chronic, without hemorrhage or perforation; K29.70 Gastritis, unspecified, without bleeding; K31.89 Other diseases of stomach and duodenum; I25.10 Atherosclerotic heart disease of native coronary artery without angina pectoris; I25.2 Old myocardial infarction; I13.0 Hypertensive heart and chronic kidney disease with heart failure and stage 1 through stage 4 chronic kidney disease, or unspecified chronic kidney disease; E11.22 Type 2 diabetes mellitus with diabetic chronic kidney disease; N18.30 Chronic kidney disease, stage 3 unspecified; I50.33 Acute on chronic diastolic (congestive) heart failure; M79.7 Fibromyalgia; E11.9 Type 2 diabetes mellitus without complications; J44.1 Chronic obstructive pulmonary disease with (acute) exacerbation; E78.5 Hyperlipidemia, unspecified; Z79.82 Long term (current) use of aspirin; Z79.891 Long term (current) use of opiate analgesic; Z79.899 Other long term (current) drug therapy; Z87.891 Personal history of nicotine dependence; Z79.84 Long term (current) use of oral hypoglycemic drugs
CPT/HCPCS: 36221; 36415; 43239; 71045; 78452; 80048; 80053 ×3; 80061; 82805; 82947 ×2; 83036; 83735; 83874; 83880; 84484 ×2; 85025 ×3; 85379; 85610; 85730; 86141; 87635; 87636; 87804 ×2; 88305; 93005 ×2; 93017; 93041; 93306; 93458; 96374; 99291; A9502; C1894; G0378

== ENCOUNTER 2021-04-15 09:28 | Emergency (ER) | payer MEDICARE, OTHER ==
[~2021-04-15] VITALS: Ht 152 cm; Wt 62.0 kg
[~2021-04-15 09:28] MED LIST changes: +CHOL10004 PO; +CLIN-144 PO; +DIPH25CA79 PO; +FOLI1TAB33 PO; +GABA300C PO; +LEVO88TA54 PO; +MELA10TA2 PO; +PANT40TA2 PO; +PRED10TA22 PO; +SUCR1TAB36 PO; +VITA1TAB17 PO
--- NOTE | 2021-04-15 09:39 | ED Cough/URI ---
General Chief Complaint: Cough/Cold/Flu Symptoms Stated Complaint: CHEST CONGESTION; COUGH Source: patient Exam Limitations: no limitations History of Present Illness Date Seen by Provider: Apr 15, 2021 Time Seen by Provider: 09:39 Initial Comments Patient is a 81-year-old female who presents with cough congestion, shortness of breath over the past several days. Patient reports conversational dyspnea dyspnea at rest and with mild exertion. Patient does report chest tightness with worsening pain due to cough. Pain is nonradiating. It is described as small and mild and dull. No history of CAD. Patient is 3 weeks post Covid. She denies fever chills, nausea vomiting or sweats.Denies abdominal pain. No nausea or vomiting. No flank pain, urinary frequency urgency urgency. No leg pain or swelling. No history of DVT or PE. No history of COPD, CAD or PE. History of congestive heart failure. Patient does not take diuretic on a routine basis. 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 Timing/Duration: week Severity/Quality: other Prior Episodes/Possible Cause: other Modifying Factors: Improves With Other Associated Symptoms: other Allergies and Home Medications Allergies Coded Allergies: methotrexate (Verified Allergy, Unknown, 11/13/20) Patient Home Medication List Home Medication List Reviewed: Yes Aspirin (Aspirin EC) 81 Mg Tablet.dr, 81 MG PO HS, (Reported) Entered as Reported by: MICH KELLEY on 05/10/19 1530 Atorvastatin Calcium (Atorvastatin Calcium) 40 Mg Tablet, 40 MG PO HS, (Reported) Entered as Reported by: MICH KELLEY on 05/10/19 1530 Carvedilol (Carvedilol) 6.25 Mg Tablet, 6.25 MG PO BID, (Reported) Entered as Reported by: MICH KELLEY on 05/10/19 1530 Cholecalciferol (Vitamin D3) (Vitamin D3) 25 Mcg Tablet, 25 MCG PO DAILY, (Reported) Entered as Reported by: MICH KELLEY on 11/14/20 1123 Diphenhydramine HCl (Benadryl) 25 Mg Capsule, 50 MG PO HS, (Reported) Entered as Reported by: MICH KELLEY on 11/14/20 1116 Folic Acid (Folic Acid) 1 Mg Tablet, 1 MG PO HS, (Reported) Entered as Reported by: MICH KELLEY on 11/14/20 1116 Gabapentin (Neurontin) 300 Mg Capsule, 300 MG PO QID, (Reported) Entered as Reported by: MICH KELLEY on 11/14/20 1116 Levothyroxine Sodium (Levothyroxine Sodium) 88 Mcg Tablet, 88 MCG PO DAILY, (Reported) Entered as Reported by: MICH KELLEY on 11/14/20 1116 Losartan Potassium (Losartan Potassium) 25 Mg Tablet, 25 MG PO HS, (Reported) Entered as Reported by: MICH KELLEY on 05/10/19 1530 Melatonin (Melatonin) 10 Mg Tablet, 10 MG PO HS, (Reported) Entered as Reported by: MICH KELLEY on 11/14/20 111 Oxycodone HCl/Acetaminophen (Oxycodon-Acetaminophen 7.5-325) 1 Each Tablet, 1 TAB PO Q4H PRN for PAIN-MODERATE (5-7), (Reported) Entered as Reported by: MICH KELLEY on 05/10/19 1530 Pantoprazole Sodium (Protonix) 40 Mg Tablet.dr, 40 MG PO DAILY Prescribed by: AUDREY FUENTES on 11/15/20 1228 Prednisone (Prednisone) 10 Mg Tab.ds.pk, 20 MG PO DAILY Prescribed by: DASHA PRIEST on 11/15/20 1144 Sucralfate (Carafate) 1 Gm Tablet, 1 GM PO QID Prescribed by: AUDREY FUENTES on 11/15/20 1228 Vitamin B Complex (Vitamin B Complex) 1 Each Tablet, 1 EACH PO DAILY, (Reported) Entered as Reported by: MICH KELLEY on 11/14/20 1116 Review of Systems Review of Systems Constitutional: see HPI EENTM: see HPI Respiratory: see HPI Cardiovascular: see HPI Gastrointestinal: see HPI Genitourinary: see HPI Musculoskeletal: see HPI Skin: see HPI Psychiatric/Neurological: See HPI Hematologic/Lymphatic: See HPI Immunological/Allergic: see HPI All Other Systems Reviewed Negative Unless Noted: Yes Past [id number] Hx Patient Social History Tobacco Use?: Yes Seasonal Allergies Seasonal Allergies: No Past Medical History 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, history CHF) Coronary Artery Disease, Heart Attack, Hypertension Neurological: No Reproductive Disorders: No Genitourinary: No Gastrointestinal: Yes Hiatal Hernia Musculoskeletal: Yes Fibromyalgia, Rheumatoid Arthritis, Back Injury Endocrine: Yes (states she is no longer diabetic) Diabetes, Non-Insulin dep HEENT: No Cancer: No Psychosocial: No Integumentary: No Blood Disorders: No Adverse Reaction/Blood Tranf: No Family Medical History No Pertinent Family Hx Physical Exam Vital Signs - First Documented 04/15/21 09:45 Temp 35.9 Pulse 62 Resp 18 B/P (MAP) 121/80 (94) Pulse Ox 96 O2 Delivery Room Air Capillary Refill : Height: 5'0" Weight: 125lbs. oz. 56.520087tu; 28.50 BMI Method:Stated General Appearance: WD/WN, no apparent distress Eyes: Bilateral Eye Normal Inspection, Bilateral Eye PERRL, Bilateral Eye EOMI HEENT: PERRL/EOMI, TMs normal, pharynx normal Neck: non-tender, full range of motion, supple Respiratory: chest non-tender, lungs clear, other (Tachypnea) Cardiovascular: normal peripheral pulses, regular rate, rhythm Gastrointestinal: normal bowel sounds, soft Extremities: normal range of motion, non-tender Neurologic/Psychiatric: alert, oriented x 3 Skin: normal color Lymphatic: no adenopathy Focused Exam Sepsis Stage: Ruled Out Procedures/Interventions Lumen: triple Central Line Procedure: betadine prep, sterile drapes applied, sterile dressing applied Position: internal jugular (R) Anesthesia: local Volume Anesthetic (ccs): 3 Complications: none Ultrasound-guided triple-lumen central line placed successfully on first attempt via reverse Seldinger technique. No complications with adequate line placement confirmed by chest x-ray. No complications noted. Patient tolerated procedure well. Progress/Results/Core Measures Suspected Sepsis SIRS Temperature: Pulse: Respiratory Rate: Laboratory Tests 04/15/21 10:35: White Blood Count 7.3 Blood Pressure / Mean: Laboratory Tests 04/15/21 10:35: Creatinine 1.10, Platelet Count 215, Total Bilirubin 0.4 Results/Orders Lab Results Laboratory Tests Test 04/15/21 09:55 04/15/21 10:35 Range/Units D-Dimer 0.81 H 0.00-0.49 UG/ML White Blood Count 7.3 4.3-11.0 10^3/uL Red Blood Count 3.56 L 3.80-5.11 10^6/uL Hemoglobin 10.4 L 11.5-16.0 g/dL Hematocrit 33 L 35-52 % Mean Corpuscular Volume 93 80-99 fL Mean Corpuscular Hemoglobin 29 25-34 pg Mean Corpuscular Hemoglobin Concent 32 32-36 g/dL Red Cell Distribution Width 15.7 H 10.0-14.5 % Platelet Count 215 130-400 10^3/uL Mean Platelet Volume 10.0 9.0-12.2 fL Immature Granulocyte % (Auto) 0 % Neutrophils (%) (Auto) 47 42-75 % Lymphocytes (%) (Auto) 35 12-44 % Monocytes (%) (Auto) 12 0-12 % Eosinophils (%) (Auto) 6 0-10 % Basophils (%) (Auto) 1 0-10 % Neutrophils # (Auto) 3.4 1.8-7.8 X 10^3 Lymphocytes # (Auto) 2.6 1.0-4.0 X 10^3 Monocytes # (Auto) 0.8 0.0-1.0 X 10^3 Eosinophils # (Auto) 0.4 H 0.0-0.3 10^3/uL Basophils # (Auto) 0.1 0.0-0.1 10^3/uL Immature Granulocyte # (Auto) 0.0 0.0-0.1 10^3/uL Sodium Level 141 135-145 MMOL/L Potassium Level 4.8 3.6-5.0 MMOL/L Chloride Level 106 98-107 MMOL/L Carbon Dioxide Level 24 21-32 MMOL/L Anion Gap 11 5-14 MMOL/L Blood Urea Nitrogen 11 7-18 MG/DL Creatinine 1.10 0.60-1.30 MG/DL Estimat Glomerular Filtration Rate 48 BUN/Creatinine Ratio 10 Glucose Level 95 70-105 MG/DL Calcium Level 9.2 8.5-10.1 MG/DL Corrected Calcium 9.4 8.5-10.1 MG/DL Total Bilirubin 0.4 0.1-1.0 MG/DL Aspartate Amino Transf (AST/SGOT) 37 H 5-34 U/L Alanine Aminotransferase (ALT/SGPT) 18 0-55 U/L Alkaline Phosphatase 75 40-136 U/L Troponin I < 0.30 <0.30 NG/ML Pro-B-Type Natriuretic Peptide 728.3 H <75.0 PG/ML Total Protein 6.3 L 6.4-8.2 GM/DL Albumin 3.7 3.2-4.5 GM/DL My Orders Orders - KELY POE DO Chest Pa/Lat (2 View) (04/15/21 09:39) Cbc With Automated Diff (04/15/21 09:40) Comprehensive Metabolic Panel (04/15/21 09:40) Troponin I Fs (04/15/21 09:40) Probnp Fs (04/15/21 09:40) Ekg Tracing (04/15/21 09:50) Furosemide Tablet (Lasix Tablet) (04/15/21 11:30) Fibrin Degradation Products (04/15/21 11:23) Ct Angio Chest W (04/15/21 12:27) Chest 1 View Ap/Pa Only (04/15/21 13:56) Iohexol Injection (Omnipaque 350 Mg/Ml 1 (04/15/21 14:30) Received Contrast (Hold Metformin- Contr (04/15/21 14:30) Ns (Ivpb) (Sodium Chloride 0.9% Ivpb Bag (04/15/21 14:30) Medications Given in ED Current Medications Medications Dose Ordered Sig/Eloy Route Start Time Stop Time Status Last Admin Dose Admin Iohexol 100 ml ONCE ONCE IV 04/15/21 14:30 04/15/21 14:31 DC 04/15/21 14:34 100 ML Sodium Chloride 100 ml ONCE ONCE IV 04/15/21 14:30 04/15/21 14:31 DC 04/15/21 14:34 100 ML Vital Signs/I&O 04/15/21 09:45 Temp 35.9 Pulse 62 Resp 18 B/P (MAP) 121/80 (94) Pulse Ox 96 O2 Delivery Room Air Capillary Refill : Departure Communication (Admissions) Repeat chest x-ray: No pneumothorax, tip of central line in right atrium. Chest x-ray: No acute cardiopulmonary disease. CTA chest: No PE, consolidation, findings consistent with post Covid versus early malignancy EKG: Sinus bradycardia rate 49, borderline MT increased. Left anterior fascicular block, LVH. Patient with resting tachypnea with chest tightness. EKG nonspecific, troponin negative. BNP moderately elevated. Limited access to peripheral veins given patient's anatomy and multiple attempts by longterm necessitating central line placement for need to give IV contrast. Central line placed without complication. CTA negative for PE and large consolidation. Findings consistent with post Covid nidus. Patient given aggressive oral diuresis with greater than 2.5 L of urine produced while in the emergency department. Patient has partial relief of shortness of breath but continues to have chest tightness. Will transfer to [facility] per family's request. Impression Primary Impression: Dyspnea Additional Impressions: Chest pain Congestive heart disease Disposition: T-[facility] Condition: Stable Transfer Transfer Reason: Patient preference Departure-Patient Inst. Referrals: KELY GARNER APRN (PCP) Primary Care Physician REN UNDERWOOD DO (Family) Primary Care Physician KELY POE DO Apr 15, 2021 09:39
--- NOTE | 2021-04-15 10:14 | Diagnostic Imaging Report ---
Clinical indication: Patient with shortness of breath and cough. EXAM: Chest x-ray PA and lateral views. COMPARISON: Portable chest x-ray dated 11/13/2020. FINDINGS: There is thickening involving the minor fissure seen on lateral view, suspected to be along the left side. Lungs are clear. There is no pleural effusion or pneumothorax. Pulmonary vasculature is within normal limits. There is mild cardiomegaly with prominence of the posterior aspect of the heart seen on lateral view. Interval kyphoplasty changes involving a compression fracture of the T12 vertebra. There are degenerative spurs involving the thoracic spine. Surgical clips are seen overlying the right upper quadrant which could be related to cholecystectomy changes. IMPRESSION: 1: There is no radiographic evidence of acute cardiopulmonary process. 2: Mild cardiomegaly with no significant pulmonary vascular congestion. Dictated by: Dictated on workstation # [id number]
[2021-04-15 10:58] LABS: WHITE BLOOD COUNT 7.3 10^3/uL (4.3-11.0)
[2021-04-15 10:59] LABS: BASOPHILS # (AUTO) 0.1 10^3/uL (0.0-0.1); BASOPHILS % (AUTO) 1 % (0-10); EOSINOPHILS # (AUTO) 0.4 10^3/uL (0.0-0.3); EOSINOPHILS % (AUTO) 6 % (0-10); HEMATOCRIT 33 % (35-52); HEMOGLOBIN 10.4 g/dL (11.5-16.0); LYMPHOCYTES # (AUTO) 2.6 X 10^3 (1.0-4.0); LYMPHOCYTES % (AUTO) 35 % (12-44); MEAN CORPUSCULAR HEMOGLOBIN 29 pg (25-34); MEAN CORPUSCULAR HGB CONC 32 g/dL (32-36); MEAN CORPUSCULAR VOLUME 93 fL (80-99); MONOCYTES # (AUTO) 0.8 X 10^3 (0.0-1.0); MONOCYTES % (AUTO) 12 % (0-12); NEUTROPHILS # (AUTO) 3.4 X 10^3 (1.8-7.8); NEUTROPHILS % (AUTO) 47 % (42-75); PLATELET COUNT 215 10^3/uL (130-400)
[2021-04-15 11:13] LABS: ALANINE AMINOTRANSFERASE 18 U/L (0-55); ALKALINE PHOSPHATASE 75 U/L (40-136); BILIRUBIN,TOTAL 0.4 MG/DL (0.1-1.0); BUN/CREATININE RATIO 10; CALCIUM 9.2 MG/DL (8.5-10.1); CARBON DIOXIDE 24 MMOL/L (21-32); CHLORIDE 106 MMOL/L (98-107); GFR ESTIMATED 48; GLUCOSE 95 MG/DL (70-105); POTASSIUM 4.8 MMOL/L (3.6-5.0); SODIUM 141 MMOL/L (135-145)
[2021-04-15 11:14] LABS: ALBUMIN 3.7 GM/DL (3.2-4.5); TOTAL PROTEIN 6.3 GM/DL (6.4-8.2)
[2021-04-15] MEDS ORDERED: FUROSEMIDE 20 MG (LASIX) TAB PO SCH (11:30)
--- NOTE | 2021-04-15 14:15 | Diagnostic Imaging Report ---
INDICATION: Central line placement. TIME OF EXAM: 1:59 PM. COMPARISON: Correlation is made with the prior study of 11/12/2020. FINDINGS: The heart size is normal. The right-sided line appears to have the tip overlying the right atrium. There is no pneumothorax. The lungs appear to be clear. There is no effusion. IMPRESSION: Right-sided central line placement which has the tip overlying the right atrium. No pneumothorax is identified. Dictated by: Dictated on workstation # [id number]
[2021-04-15] MEDS ORDERED: IOHEXOL 350 MG/ML 100 ML (OMNIPAQUE 350) VIAL IV ONE (14:30)
[2021-04-15] MEDS ORDERED: HOLD METFORMIN - RECEIVED CONTRAST 20 ML VIAL IV SCH (14:30)
[2021-04-15] MEDS ORDERED: NS 100 ML (IVPB) BAG IV ONE (14:30)
--- NOTE | 2021-04-15 14:46 | Diagnostic Imaging Report ---
PROCEDURE: CT angiography of the chest with contrast. TECHNIQUE: Multiple contiguous axial images were obtained through the chest after uneventful bolus administration of intravenous contrast. 3D reconstructed CTA MIP acquisitions were also performed. Auto Exposure Controls were utilized during the CT exam to meet ALARA standards for radiation dose reduction. INDICATION: Shortness of breath. Elevated D-dimer. COVID positive three weeks ago. COMPARISON: Chest radiograph performed earlier the same date. FINDINGS: This helical CT pulmonary angiogram is diagnostic to the subsegmental level branches of the pulmonary artery and demonstrates no pulmonary emboli. The heart and great vessels are unremarkable. There is no pericardial effusion. There is no axillary, mediastinal, or hilar adenopathy. Focal ground-glass nodule is seen in the left lung base measuring 0.9 cm. No other suspicious pulmonary nodules are seen. No focal consolidation. No central endobronchial obstructing lesions. No pleural effusion or pneumothorax. Chronic compression fracture status post kyphoplasty is seen at T12. Limited views of the upper abdomen are unremarkable. IMPRESSION: 1. No acute pulmonary embolus. 2. Ground-glass nodule in the left lung base measuring 0.9 cm. This may represent residual opacities from the patient's history of COVID infection, although early malignancy is not excluded. Recommend follow-up in six months with chest CT to ensure resolution. Dictated by: Dictated on workstation # [id number]
[2021-04-15 17:53] VITALS: BP 124/62
[2021-04-15] MEDS ORDERED: GABAPENTIN 100 MG (NEURONTIN) CAP PO ONE (20:15)
== END 2021-04-15 21:12 | disposition short-term general hospital (02) ==
LOC: EDUNIT# 09:28 → ER FS 09:31
DX: I50.9 Heart failure, unspecified (principal)
CPT/HCPCS: 36415; 36556; 71045; 71046; 71275; 80053; 83880; 84484; 85025; 85379; 93005

== ENCOUNTER → 2021-06-24 | Outpatient (CLI) | payer MEDICARE, OTHER ==
--- NOTE | 2021-06-24 16:29 | Diagnostic Imaging Report ---
INDICATION: Neck pain. TIME OF EXAM: 3:50 PM AP, lateral, swimmer's as well as odontoid views of the cervical spine were obtained. Curvature is normal. There appears to be retrolisthesis of C4 on C5. Significant degenerative disc disease C4-C5, C5-C6 and C6-C7 levels is noted. No significant disc space narrowing and marginal spurring. There is multilevel facet arthropathy.. Prevertebral tissues are normal. No fractures are seen. Odontoid appears intact. IMPRESSION: Cervical spondylosis as well as retrolisthesis C4 on C5. No acute bony abnormalities detected. Dictated by: Dictated on workstation # [id number]
== END ==
LOC: RAD FS 15:40
PROVIDERS: ATTEND Family Medicine
DX: M47.812 Spondylosis without myelopathy or radiculopathy, cervical region (principal); M43.12 Spondylolisthesis, cervical region
CPT/HCPCS: 72040

== ENCOUNTER 2021-10-07 11:05 | Emergency (ER) | payer MEDICARE, OTHER ==
[~2021-10-07] VITALS: Ht 60 cm; Wt 62.3 kg
[~2021-10-07 11:05] MED LIST changes: +OMEP20TA56 PO; -OMEP20TA7 PO
--- NOTE | 2021-10-07 11:10 | ED Dyspnea ---
General Stated Complaint: SOB; GEN PAIN History of Present Illness Date Seen by Provider: October 07, 2021 Time Seen by Provider: 11:10 Initial Comments 81-year-old female presents with some shortness of breath. She reports that started during the night. Gets worse when she lays down. She has a history of CHF. Patient complains of some generalized pain that is chronic may be a little bit worse today. Patient was given an Lasix and it and nitro paste by EMS. When EMS arrived she was in mid 80s on 2 L. They gave her that medications and up to 4 L now she is in the mid 90s. Patient denies any fever, chills, increasing cough, recent illness. Allergies and Home Medications Allergies Coded Allergies: methotrexate (Verified Allergy, Unknown, 11/13/20) Patient Home Medication List Home Medication List Reviewed: Yes Aspirin (Aspirin EC) 81 Mg Tablet.dr, 81 MG PO HS, (Reported) Entered as Reported by: MICH KELLEY on 05/10/19 1530 Atorvastatin Calcium (Atorvastatin Calcium) 40 Mg Tablet, 40 MG PO HS, (Repor nila) Entered as Reported by: MICH KELLEY on 05/10/19 1530 Carvedilol (Carvedilol) 6.25 Mg Tablet, 6.25 MG PO BID, (Reported) Entered as Reported by: MICH KELLEY on 05/10/19 1530 Cholecalciferol (Vitamin D3) (Vitamin D3) 25 Mcg Tablet, 25 MCG PO DAILY, (Reported) Entered as Reported by: MICH KELLEY on 11/14/20 1123 Diphenhydramine HCl (Benadryl) 25 Mg Capsule, 50 MG PO HS, (Reported) Entered as Reported by: MICH KELLEY on 11/14/20 111 Folic Acid (Folic Acid) 1 Mg Tablet, 1 MG PO HS, (Reported) Entered as Reported by: MICH KELLEY on 11/14/20 111 Gabapentin (Neurontin) 300 Mg Capsule, 300 MG PO QID, (Reported) Entered as Reported by: MICH KELLEY on 11/14/20 111 Levothyroxine Sodium (Levothyroxine Sodium) 88 Mcg Tablet, 88 MCG PO DAILY, (Reported) Entered as Reported by: MICH KELLEY on 11/14/20 111 Losartan Potassium (Losartan Potassium) 25 Mg Tablet, 25 MG PO HS, (Reported) Entered as Reported by: MICH KELLEY on 05/10/19 1530 Melatonin (Melatonin) 10 Mg Tablet, 10 MG PO HS, (Reported) Entered as Reported by: MICH KELLEY on 11/14/20 1116 Oxycodone HCl/Acetaminophen (Oxycodon-Acetaminophen 7.5-325) 1 Each Tablet, 1 TAB PO Q4H PRN for PAIN-MODERATE (5-7), (Reported) Entered as Reported by: MICH KELLEY on 05/10/19 1530 Pantoprazole Sodium (Protonix) 40 Mg Tablet.dr, 40 MG PO DAILY Prescribed by: AUDREY FUENTES on 11/15/20 1228 Prednisone (Prednisone) 10 Mg Tab.ds.pk, 20 MG PO DAILY Prescribed by: DASHA PRIEST on 11/15/20 1144 Sucralfate (Carafate) 1 Gm Tablet, 1 GM PO QID Prescribed by: AUDREY FUENTES on 11/15/20 1228 Vitamin B Complex (Vitamin B Complex) 1 Each Tablet, 1 EACH PO DAILY, (Reported) Entered as Reported by: MICH KELLEY on 11/14/20 1116 Review of Systems Review of Systems Constitutional: No chills, No fever EENTM: no symptoms reported Respiratory: orthopnea, short of breath Cardiovascular: see HPI, edema; No palpitations, No syncope Gastrointestinal: no symptoms reported; No abdominal pain, No nausea, No vomiting Genitourinary: no symptoms reported Musculoskeletal: see HPI Skin: no symptoms reported Psychiatric/Neurological: No Symptoms Reported Endocrine: No Symptoms Reported Past [id number] Hx Immunizations Up To Date First/Initial COVID19 Vaccinat: AUGUST 2020 Second COVID19 Vaccination Tony: AUGUST 2020 Seasonal Allergies Seasonal Allergies: No Past Medical History Surgery/Hospitalization HX: PT REPORTS SHE HAD COVID 3 WEEKS AGO AND HAS BEEN OFF QUARANTINE 7 DAYS. LAST NIGHT SHE DEVELOPED A COUGH AND HAS YELLOW SPUTUM. HER RIBS ARE SORE FROM COUGHING. 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, history CHF) Coronary Artery Disease, Heart Attack, Hypertension Neurological: No Reproductive Disorders: No Genitourinary: No Gastrointestinal: Yes Hiatal Hernia Musculoskeletal: Yes Fibromyalgia, Rheumatoid Arthritis, Back Injury Endocrine: Yes (states she is no longer diabetic) Diabetes, Non-Insulin dep HEENT: No Cancer: No Psychosocial: No Integumentary: No Blood Disorders: No Adverse Reaction/Blood Tranf: No Family Medical History No Pertinent Family Hx Physical Exam Vital Signs Vital Signs - First Documented 10/07/21 11:08 Temp 39.2 Pulse 92 Resp 24 B/P (MAP) 158/44 (82) Pulse Ox 95 O2 Delivery Nasal Cannula O2 Flow Rate 4.00 Capillary Refill : Height, Weight, BMI Height: 5'0" Weight: 125lbs. oz. 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 Norm as Tested Skin: Normal Color, Warm/Dry Focused Exam Lactate Level 10/07/21 11:12: Lactic Acid Level 1.46 Lactic Acid Level Laboratory Tests Test 10/07/21 11:12 Lactic Acid Level 1.46 MMOL/L (0.50-2.00) Progress/Results/Core Measures Results/Orders Lab Results Laboratory Tests Test 10/07/21 11:12 10/07/21 11:13 10/07/21 11:45 10/07/21 11:50 Range/Units Lactic Acid Level 1.46 0.50-2.00 MMOL/L White Blood Count 11.6 H 4.3-11.0 10^3/uL Red Blood Count 3.98 3.80-5.11 10^6/uL Hemoglobin 11.8 11.5-16.0 g/dL Hematocrit 35 35-52 % Mean Corpuscular Volume 89 80-99 fL Mean Corpuscular Hemoglobin 30 25-34 pg Mean Corpuscular Hemoglobin Concent 33 32-36 g/dL Red Cell Distribution Width 14.4 10.0-14.5 % Platelet Count 221 130-400 10^3/uL Mean Platelet Volume 9.9 9.0-12.2 fL Immature Granulocyte % (Auto) 0 % Neutrophils (%) (Auto) 72 42-75 % Lymphocytes (%) (Auto) 16 12-44 % Monocytes (%) (Auto) 10 0-12 % Eosinophils (%) (Auto) 2 0-10 % Basophils (%) (Auto) 1 0-10 % Neutrophils # (Auto) 8.4 H 1.8-7.8 10^3/uL Lymphocytes # (Auto) 1.8 1.0-4.0 10^3/uL Monocytes # (Auto) 1.1 H 0.0-1.0 10^3/uL Eosinophils # (Auto) 0.2 0.0-0.3 10^3/uL Basophils # (Auto) 0.1 0.0-0.1 10^3/uL Immature Granulocyte # (Auto) 0.0 0.0-0.1 10^3/uL Percent Immature Platelet Fraction 2.0 0.0-7.6 % Sodium Level 142 135-145 MMOL/L Potassium Level 4.4 3.6-5.0 MMOL/L Chloride Level 105 98-107 MMOL/L Carbon Dioxide Level 22 21-32 MMOL/L Anion Gap 15 H 5-14 MMOL/L Blood Urea Nitrogen 11 7-18 MG/DL Creatinine 0.83 0.60-1.30 MG/DL Estimat Glomerular Filtration Rate 72 BUN/Creatinine Ratio 13 Glucose Level 132 H 70-105 MG/DL Calcium Level 9.4 8.5-10.1 MG/DL Corrected Calcium 9.3 8.5-10.1 MG/DL Magnesium Level 1.0 *L 1.6-2.4 MG/DL Total Bilirubin 0.7 0.1-1.0 MG/DL Aspartate Amino Transf (AST/SGOT) 29 5-34 U/L Alanine Aminotransferase (ALT/SGPT) 10 0-55 U/L Alkaline Phosphatase 96 40-136 U/L Troponin I < 0.30 <0.30 NG/ML C-Reactive Protein 0.49 <0.50 MG/DL Pro-B-Type Natriuretic Peptide 1543.0 H <75.0 PG/ML Total Protein 6.9 6.4-8.2 GM/DL Albumin 4.1 3.2-4.5 GM/DL Urine Color YELLOW Urine Clarity CLEAR Urine pH 7.0 5-9 Urine Specific [place] 1.010 L 1.016-1.022 Urine Protein NEGATIVE NEGATIVE Urine Glucose (UA) NEGATIVE NEGATIVE Urine Ketones NEGATIVE NEGATIVE Urine Nitrite NEGATIVE NEGATIVE Urine Bilirubin NEGATIVE NEGATIVE Urine Urobilinogen 0.2 < = 1.0 MG/DL Urine Leukocyte Esterase NEGATIVE NEGATIVE Urine RBC (Auto) NEGATIVE NEGATIVE Urine RBC RARE /HPF Urine WBC RARE /HPF Urine Squamous Epithelial Cells RARE /HPF Urine Crystals NONE /LPF Urine Bacteria TRACE /HPF Urine Casts NONE /LPF Urine Mucus NEGATIVE /LPF Urine Culture Indicated NO My Orders Orders - CONRAD,NARGIS L DO Chest 1 View Ap/Pa Only (10/07/21 11:13) Cbc With Automated Diff (10/07/21 11:13) Comprehensive Metabolic Panel (10/07/21 11:13) Magnesium (10/07/21 11:13) Probnp Fs (10/07/21 11:13) Crp Fs (10/07/21 11:13) Troponin I Fs (10/07/21 11:13) Ekg Tracing (10/07/21 11:13) O2 (10/07/21 11:13) Monitor-Rhythm Ecg Trace Only (10/07/21 11:13) Ceftriaxone 1 Gm Pre-Mix (Rocephin 1 Gm (10/07/21 11:45) Azithromycin Injection (Zithromax Inject (10/07/21 11:45) Influenza A And B By Pcr (10/07/21 11:42) Covid 19 Inhouse Test (10/07/21 11:42) Urinalysis (10/07/21 11:46) Blood Culture (10/07/21 12:05) Lactic Acid Analyzer (10/07/21 12:05) Magnesium Oxide Tablet (Mag Ox Tablet) (10/07/21 12:30) Medications Given in ED Current Medications Medications Dose Ordered Sig/Eloy Route Start Time Stop Time Status Last Admin Dose Admin Azithromycin 500 mg/Sodium Chloride 255 ml @ 250 mls/hr ONCE ONCE IV 10/07/21 11:45 10/07/21 12:46 DC 10/07/21 12:27 250 MLS/HR Ceftriaxone Sodium/Dextrose 50 ml @ 100 mls/hr ONCE ONCE IV 10/07/21 11:45 10/07/21 12:14 DC 10/07/21 12:10 100 MLS/HR Magnesium Oxide 400 mg ONCE ONCE PO 5/10/22 12:30 10/07/21 12:31 DC 10/07/21 12:31 400 MG Vital Signs/I&O 10/07/21 10/07/21 10/07/21 11:08 11:31 11:34 Temp 39.2 Pulse 92 Resp 24 B/P (MAP) 158/44 (82) Pulse Ox 95 95 O2 Delivery Nasal Cannula Nasal Cannula Nasal Cannula O2 Flow Rate 4.00 4.00 2.00 Progress Progress Note : Progress Note Patient with a right lower lobe pneumonia. Patient and family are requesting transfer to [facility]. Discussed with Dr. Priest who accepted. Patient was given Rocephin and azithromycin in the ER. Patient stable upon transfer Initial ECG Impression Date: October 07, 2021 Initial ECG Impression Time: 11:15 Initial ECG Rate: 94 Initial ECG Rhythm: Normal Sinus Initial ECG Intervals left fasicular block, LVH Comment abnormal ekg, no acute changes Departure Impression Primary Impression: Right lower lobe pneumonia Qualified Codes: J18.9 - Pneumonia, unspecified organism Disposition: XFER SHT-TRM HOSP Condition: Stable Transfer Transfer Reason: Patient preference Time Spoke to Accepting Phy: 12:45 Transfer Facility: [facility] Method of Transfer: EMS Departure-Patient Inst. Referrals: SELF,RY TOLEDO (PCP) Primary Care Physician NARGIS CONRAD DO October 07, 2021 11:10
--- NOTE | 2021-10-07 11:33 | Diagnostic Imaging Report ---
INDICATION: Dyspnea Frontal chest obtained at 11:20 a.m. and compared to 04/15/2021. Heart is borderline enlarged. There is mild central vascular prominence. There is some patchy infiltrate in the left perihilar region and base which may represent early pneumonia. There is no pneumothorax or gross pleural fluid. IMPRESSION: Early infiltrate in left perihilar region and base, suspicious for early pneumonia. Followup is recommended. Dictated by: Dictated on workstation # [id number]
[2021-10-07] MEDS ORDERED: cefTRIAXone 1 GM PRE-MIX 50 ML IV ONE (11:45)
[2021-10-07] MEDS ORDERED: AZITHROMYCIN INJECTION 500 MG in NS (IVPB) 250 ML IV ONE (11:45)
[2021-10-07 12:00] LABS: BASOPHILS # (AUTO) 0.1 10^3/uL (0.0-0.1); BASOPHILS % (AUTO) 1 % (0-10); EOSINOPHILS # (AUTO) 0.2 10^3/uL (0.0-0.3); EOSINOPHILS % (AUTO) 2 % (0-10); HEMATOCRIT 35 % (35-52); HEMOGLOBIN 11.8 g/dL (11.5-16.0); LYMPHOCYTES # (AUTO) 1.8 10^3/uL (1.0-4.0); LYMPHOCYTES % (AUTO) 16 % (12-44); MEAN CORPUSCULAR HEMOGLOBIN 30 pg (25-34); MEAN CORPUSCULAR HGB CONC 33 g/dL (32-36); MEAN CORPUSCULAR VOLUME 89 fL (80-99); MEAN PLATELET VOLUME 9.9 fL (9.0-12.2); MONOCYTES # (AUTO) 1.1 10^3/uL (0.0-1.0); MONOCYTES % (AUTO) 10 % (0-12); NEUTROPHILS # (AUTO) 8.4 10^3/uL (1.8-7.8); NEUTROPHILS % (AUTO) 72 % (42-75); PLATELET COUNT 221 10^3/uL (130-400); WHITE BLOOD COUNT 11.6 10^3/uL (4.3-11.0)
[2021-10-07 12:08] LABS: COLOR,URINE YELLOW
[2021-10-07 12:09] LABS: BILIRUBIN,URINE NEGATIVE (NEGATIVE); CLARITY,URINE CLEAR; GLUCOSE, URINE (UA) NEGATIVE (NEGATIVE); KETONES,URINE NEGATIVE (NEGATIVE); LEUKOCYTE ESTERASE ,URINE NEGATIVE (NEGATIVE); NITRITE,URINE NEGATIVE (NEGATIVE); PROTEIN,URINE NEGATIVE (NEGATIVE)
[2021-10-07 12:10] LABS: BACTERIA,URINE TRACE /HPF; RBC,URINE RARE /HPF; SQUAMOUS EPITHELIAL CELL,UR RARE /HPF; WBC,URINE RARE /HPF
[2021-10-07 12:15] LABS: BUN/CREATININE RATIO 13; CALCIUM 9.4 MG/DL (8.5-10.1); CARBON DIOXIDE 22 MMOL/L (21-32); CHLORIDE 105 MMOL/L (98-107); CREATININE SERUM 0.83 MG/DL (0.60-1.30); GFR ESTIMATED 72; GLUCOSE 132 MG/DL (70-105); POTASSIUM 4.4 MMOL/L (3.6-5.0); SODIUM 142 MMOL/L (135-145)
[2021-10-07 12:17] LABS: ALANINE AMINOTRANSFERASE 10 U/L (0-55); ALKALINE PHOSPHATASE 96 U/L (40-136); BILIRUBIN,TOTAL 0.7 MG/DL (0.1-1.0); TOTAL PROTEIN 6.9 GM/DL (6.4-8.2)
[2021-10-07 12:18] LABS: ALBUMIN 4.1 GM/DL (3.2-4.5)
[2021-10-07] MEDS ORDERED: MAGNESIUM OXIDE (MAG-OX)400 MG TAB PO ONE (12:30)
[2021-10-07 13:57] VITALS: BP 111/66
== END 2021-10-07 13:53 | disposition short-term general hospital (02) ==
LOC: EDUNIT# 11:05 → ER FS 11:06
DX: J18.9 Pneumonia, unspecified organism (principal); I44.69 Other fascicular block; I11.0 Hypertensive heart disease with heart failure; I50.9 Heart failure, unspecified; Z95.811 Presence of heart assist device; Z86.16 Personal history of COVID-19
CPT/HCPCS: 36415; 71045; 80053; 81000; 83605; 83735; 83880; 84484; 85025; 86141; 87040; 87636; 93005; 93041; 96365; 96375

== ENCOUNTER → 2021-10-23 | Outpatient (CLI) | payer MEDICARE, OTHER ==
--- NOTE | 2021-10-23 15:47 | Diagnostic Imaging Report ---
EXAMINATION: CHEST (PA AND LATERAL) CLINICAL INDICATION: 81-year-old female, shortness of breath. Evaluation for pneumonia. COMPARISON: Chest radiographs April 15, 2021. FINDINGS: Heart size and mediastinal contours are unchanged. There is no identified pneumothorax. There is no pleural effusion. There are prior kyphoplasty changes of the mid to lower thoracic spine with subjacent additional compression deformity of the thoracic spine which is unchanged. There is no identified focal airspace consolidation. IMPRESSION: 1. No identified acute cardiopulmonary abnormality. Dictated by: Dictated on workstation # [id number]
== END ==
LOC: RAD FS 14:15
PROVIDERS: ATTEND Family Medicine
DX: J18.9 Pneumonia, unspecified organism (principal)
CPT/HCPCS: 71046

== ENCOUNTER 2021-11-16 21:45 | Inpatient (IN) | payer MEDICARE, OTHER ==
[~2021-11-16] VITALS: Ht 152.4 cm; Wt 68.7 kg
[2021-11-17] MEDS ORDERED: LACTULOSE SYRUP 10GM/15ML (ENULOSE) 30ML UDC PO PRN (01:30)
[2021-11-17] MEDS ORDERED: BISACODYL 10 MG SUPP (DULCOLAX) PR PRN (01:30)
[2021-11-17] MEDS ORDERED: CALCIUM CARBONATE 500 MG (TUMS) TAB.CHEW PO PRN (01:30)
[2021-11-17] MEDS ORDERED: diphenhydrAMINE 50 MG/ML INJ (BENADRYL) IVP PRN (01:30)
[2021-11-17] MEDS ORDERED: ANTACID SUSP 30 ML UDC (MYLANTA) PO PRN (01:30)
[2021-11-17] MEDS ORDERED: MELATONIN 3 MG TABLET PO PRN (01:30)
[2021-11-17] MEDS ORDERED: NITROGLYCERIN 0.4 MG SL TABS BTL 25'S SL PRN (01:30)
[2021-11-17] MEDS ORDERED: ONDANSETRON 4 MG/2 ML (SDV) Z0FRAN IV PRN (01:30)
[2021-11-17] MEDS ORDERED: polyethylene glycoL POWDER 17 GM (MIRALAX) PACK PO PRN (01:30)
[2021-11-17] MEDS ORDERED: diphenhydrAMINE 25 MG TAB (BENADRYL) PO PRN (01:30)
[2021-11-17] MEDS ORDERED: PATIENT MAY USE OWN MEDS, ALL PO SCH (01:30)
[2021-11-17] MEDS ORDERED: MILK OF MAGNESIA 400 MG/5 ML 30 ML UDC PO PRN (01:30)
[2021-11-17] MEDS ORDERED: ONDANSETRON 4 MG (ZOFRAN) ORAL DISSOLVE TAB PO PRN (01:30)
[2021-11-17] MEDS ORDERED: ALPRAZolam 0.25 MG (XANAX) TAB PO PRN ×2 (01:30→15:30)
[2021-11-17] MEDS ORDERED: NOREPINEPHRINE 8 MG/250 ML 250 ML IV ONE (01:36)
[2021-11-17] MEDS: NOREPINEPHRINE 8 MG/250 ML 250 ML IV SCH ×2 (02:03→23:20)
[2021-11-17] MEDS: morphine INJ 4 MG/ML 1 ML (VIAL/SYRINGE) IV PRN ×2 (02:19→22:16)
[2021-11-17 02:25] LABS: ALBUMIN 3.1 GM/DL (3.2-4.5); POTASSIUM 4.1 MMOL/L (3.6-5.0)
[2021-11-17 02:26] LABS: CALCIUM 8.1 MG/DL (8.5-10.1)
[2021-11-17 02:27] LABS: TOTAL PROTEIN 5.6 GM/DL (6.4-8.2)
[2021-11-17 02:29] LABS: BILIRUBIN,TOTAL 0.5 MG/DL (0.1-1.0)
[2021-11-17 02:31] LABS: CREATININE SERUM 1.16 MG/DL (0.60-1.30)
[2021-11-17] MEDS: ENOXAPARIN 60 MG/0.6 ML (LOVENOX) SYR SC SCH ×2 (03:07→14:49)
[2021-11-17] MEDS: NS IV 1000 ML 1,000 ML IV SCH ×5 (03:08→23:20)
[2021-11-17] MEDS: MAGNESIUM 1 GM/100 ML IVPB 100 ML IV SCH (06:12)
[2021-11-17] MEDS: KCL 20 MEQ TAB (K-DUR) PO SCH (06:12)
[2021-11-17] MEDS: POTASSIUM CL 10MEQ/50ML IVPB 50 ML IV SCH (06:13)
[2021-11-17 07:49] LABS: BASOPHILS % (AUTO) 0 % (0-10); EOSINOPHILS % (AUTO) 0 % (0-10); HEMATOCRIT 28 % (35-52); LYMPHOCYTES # (AUTO) 2.3 10^3/uL (1.0-4.0); LYMPHOCYTES % (AUTO) 26 % (12-44); MEAN CORPUSCULAR HEMOGLOBIN 30 pg (25-34); MEAN CORPUSCULAR HGB CONC 33 g/dL (32-36); MEAN CORPUSCULAR VOLUME 93 fL (80-99); MONOCYTES # (AUTO) 1.4 10^3/uL (0.0-1.0); MONOCYTES % (AUTO) 16 % (0-12); NEUTROPHILS % (AUTO) 57 % (42-75); PLATELET COUNT 158 10^3/uL (130-400); WHITE BLOOD COUNT 8.8 10^3/uL (4.3-11.0)
[2021-11-17] MEDS: DOCUSATE SODIUM 100 MG (COLACE) CAP PO SCH ×4 (08:17→21:08)
[2021-11-17] MEDS: SENNOSIDES 8.6 MG (SENOKOT) TAB PO SCH ×2 (08:17→21:07)
[2021-11-17] MEDS: ASPIRIN E.C. 81 MG (ECOTRIN) TAB PO SCH (08:17)
[2021-11-17] MEDS: ACETAMINOPHEN 325 MG TABLET PO PRN (08:29)
[2021-11-17 09:16] LABS: BAND NEUTROPHILS 3 %; BASOPHILS % (MANUAL) 0 %; EOSINOPHILS % (MANUAL) 1 %; LYMPHOCYTES % (MANUAL) 23 %; MONOCYTES % (MANUAL) 20 %; NEUTROPHILS % (MANUAL) 53 %; RBC MORPH NORMAL
--- NOTE | 2021-11-17 09:38 | Consultation-Cardiology ---
HPI-Cardiology Cardiology Consultation: Date of Consultation 11/17/21 Date of Admission 11/17/21 Attending Physician Javier Valero MD Admitting Physician Admitting Physician: Yanni Priest DO Attending Physician: Brittney Mayo MD Consulting Physician CARLOS JOHNSON JR, MD HPI: Time Seen by a Provider: 09:33 Chief Complaint: REASON FOR CONSULTATION: Non-ST elevation myocardial infarction. I had the pleasure of seeing Carmen in the intensive care unit at [facility] in [place], [place] today. She has a history of Takotsubo cardiomyopathy that improved and chronic heart failure with reduced ejection fraction as well as moderate coronary artery disease involving the left anterior descending coronary artery but no previous revascularization. She normally follows with a bed maker in [place], [place]. Earlier this month she was in [facility] with pneumonia. She was discharged after few days and states that after she went home she was feeling good. However, for the past couple of weeks now she has been having intermittent dyspnea on exertion and chest and back discomfort. Yesterday she was so weak that she could not get out of bed. She called her son who then brought her to [facility]. During her evaluation in the emergency room, she was found to be in shock. A central line was placed and she was started on norepinephrine infusion. She also had an elevated troponin level consistent with a non-ST elevation myocardial infarction and was transferred to our facility for further evaluation. She is still complaining of back pain that radiates into her chest. She still feels short of breath. She denies paroxysmal nocturnal dyspnea, orthopnea, palpitations, lightheadedness, syncope, or lower extremity edema. She has had a slight cough productive of minimal sputum. She denies fever or chills but states that if her temperature is normal, she probably has a fever because her temperature usually runs on the low side. Because of the probable non-ST elevation myocardial infarction, a cardiology consultation was requested. Certain portions of this document may have been dictated utilizing voice recognition technology. Inherent to this technology, typographical and grammatical errors may exist. As much as I am diligent to identify and correct these mistakes, some errors may remain in the document. Review of Systems-Cardiology Review of Systems Other comments Review of 10 organ systems is as per the history of present illness, otherwise negative. [id number] Hx Patient Social History Smoking Status: Former Smoker 2nd Hand Smoke Exposure: No Past Medical History PMH As described under Assessment. Family Medical History Family Medical History: Both of her parents had heart disease. Allergies and Home Medications Allergies Coded Allergies: methotrexate (Verified Allergy, Unknown, 11/13/20) Patient Home Medication List Home Medication List Reviewed: Yes ALPRAZolam (ALPRAZolam) 0.25 Mg Tablet, 0.25 MG PO Q6H PRN for ANXIETY, (Reported) Entered as Reported by: MICH KELLEY on 11/17/211518 Last Action: Continued Ascorbate Calcium (Vitamin C) 500 Mg Tablet, 500 MG PO DAILY, (Reported) Entered as Reported by: MICH KELLEY on 11/17/211518 Last Action: Held Aspirin (Aspirin EC) 81 Mg Tablet.dr, 81 MG PO HS, (Reported) Entered as Reported by: MICH KELLEY on 05/10/19 153 Last Action: Reviewed Atorvastatin Calcium (Atorvastatin Calcium) 40 Mg Tablet, 40 MG PO HS, (Reported) Entered as Reported by: MICH KELLEY on 05/10/191529 Last Action: Continued Carvedilol (Carvedilol) 3.125 Mg Tablet, 3.125 MG PO BID, (Reported) Entered as Reported by: MICH KELLEY on 11/17/211518 Last Action: Held Cholecalciferol (Vitamin D3) (Vitamin D3) 25 Mcg Tablet, 25 MCG PO DAILY, (Reported) Entered as Reported by: MICH KELLEY on 11/14/20 1123 Last Action: Held Diphenhydramine HCl (Benadryl) 25 Mg Capsule, 50 MG PO HS, (Reported) Entered as Reported by: MICH KELLEY on 11/14/20 111 Last Action: Held Folic Acid (Folic Acid) 1 Mg Tablet, 1 MG PO DAILY, (Reported) Entered as Reported by: MICH KELLEY on 11/14/20 111 Last Action: Held Gabapentin (Neurontin) 300 Mg Capsule, 300 MG PO QID, (Reported) Entered as Reported by: MICH KELLEY on 11/14/201115 Last Action: Continued Levothyroxine Sodium (Levothyroxine Sodium) 88 Mcg Tablet, 88 MCG PO DAILY, (Reported) Entered as Reported by: MICH KELLEY on 11/14/201115 Last Action: Continued Losartan Potassium (Losartan Potassium) 25 Mg Tablet, 25 MG PO DAILY, (Reported) Entered as Reported by: MICH KELLEY on 05/10/191529 Last Action: Held Metformin HCl (Metformin HCl) 500 Mg Tablet, 500 MG PO BID, (Reported) Entered as Reported by: MICH KELLEY on 11/17/211518 Last Action: Held Montelukast Sodium (Montelukast Sodium) 10 Mg Tablet, 10 MG PO HS, (Reported) Entered as Reported by: MICH KELLEY on 11/17/211518 Last Action: Continued Multivitamin (Multivitamin) 1 Each Tablet, 1 EACH PO DAILY, (Reported) Entered as Reported by: MICH KELLEY on 11/17/211518 Last Action: Held Oxycodone HCl/Acetaminophen (Oxycodon-Acetaminophen 7.5-325) 1 Each Tablet, 1 TAB PO Q4H PRN for PAIN-MODERATE (5-7), (Reported) Entered as Reported by: MICH KELLEY on 05/10/191529 Last Action: Reviewed Pantoprazole Sodium (Pantoprazole Sodium) 40 Mg Tablet., 40 MG PO HS, (Reported) Entered as Reported by: MICH KELLEY on 11/17/211518 Last Action: Continued Sucralfate (Sucralfate) 1 Gram Tablet, 1 GM PO ACHS PRN for ULCER FLARE, (Reported) Entered as Reported by: MICH KELLEY on 11/17/211518 Last Action: Held Vitamin B Complex (Vitamin B Complex) 1 Each Tablet, 1 EACH PO DAILY, (Reported) Entered as Reported by: MICH KELLEY on 11/14/201115 Last Action: Held Discontinued Medications Carvedilol (Carvedilol) 6.25 Mg Tablet, 6.25 MG PO BID, (Reported) Discontinued Reason: Duplicate Order Entered as Reported by: MICH KELLEY on 05/10/191529 Last Action: Discontinued Melatonin (Melatonin) 10 Mg Tablet, 10 MG PO HS, (Reported) Discontinued Reason: No Longer Taking Entered as Reported by: MICH KELLEY on 11/14/201115 Last Action: Discontinued Pantoprazole Sodium (Protonix) 40 Mg Tablet.dr, 40 MG PO DAILY Discontinued Reason: Duplicate Order Prescribed by: AUDREY FUENTES on 11/15/20 1228 Last Action: Discontinued Prednisone (Prednisone) 10 Mg Tab.ds.pk, 20 MG PO DAILY Discontinued Reason: No Longer Taking Prescribed by: YANNI PRIEST on 11/15/20 1144 Last Action: Discontinued Sucralfate (Carafate) 1 Gm Tablet, 1 GM PO QID Discontinued Reason: Duplicate Order Prescribed by: AUDREY FUENTES on 11/15/20 1228 Last Action: Discontinued Exam Vital Signs Vital Signs Date Time Temp Pulse Resp B/P (MAP) Pulse Ox O2 Delivery O2 Flow Rate FiO2 11/17/21 16:00 98 Room Air 11/17/21 15:27 36.1 11/17/21 15:00 73 22 122/92 Physical Exam General: Alert. No acute distress. Well nourished and appears stated age. Eye: Extraocular movements are intact. Conjunctivae are clear. There are no xanthelasma. HENT: Normocephalic. Atraumatic. Carotid pulsations 2/2 without bruits. Neck: Jugular venous pressure does not appear elevated. No thyromegaly appreciated. Respiratory: Lungs are clear to auscultation. Respirations are non-labored. Breath sounds are equal. Symmetrical chest wall expansion. Cardiovascular: Normal rate. Regular rhythm. No murmur. No gallop. Point of maximal impulse is not appear displaced. Good pulses equal in all extremities. No edema. Gastrointestinal: Soft. Normal bowel sounds. Skin: Skin turgor is normal. There is no pallor. Musculoskeletal: No kyphosis or scoliosis appreciated. Neurologic: Alert and oriented to person, place, time. Cranial nerves 3-12 appear grossly intact. The patient has good motor tone strength in the upper and lower extremities bilaterally. Psychiatric: Cooperative. Appropriate mood & affect. Labs Laboratory Tests Test 11/17/21 02:10 11/17/21 07:35 11/17/21 11:17 11/17/21 15:35 Range/Units Sodium Level 136 135-145 MMOL/L Potassium Level 4.1 3.6-5.0 MMOL/L Chloride Level 103 98-107 MMOL/L Carbon Dioxide Level 20 L 21-32 MMOL/L Anion Gap 13 5-14 MMOL/L Blood Urea Nitrogen 20 H 7-18 MG/DL Creatinine 1.16 0.60-1.30 MG/DL Estimat Glomerular Filtration Rate 48 BUN/Creatinine Ratio 17 Glucose Level 165 H 70-105 MG/DL Calcium Level 8.1 L 8.5-10.1 MG/DL Corrected Calcium 8.8 8.5-10.1 MG/DL Total Bilirubin 0.5 0.1-1.0 MG/DL Aspartate Amino Transf (AST/SGOT) 28 5-34 U/L Alanine Aminotransferase (ALT/SGPT) 10 0-55 U/L Alkaline Phosphatase 76 40-136 U/L Troponin I 2.723 *H 3.705 *H <0.028 NG/ML Total Protein 5.6 L 6.4-8.2 GM/DL Albumin 3.1 L 3.2-4.5 GM/DL White Blood Count 8.8 4.3-11.0 10^3/uL Red Blood Count 2.97 L 3.80-5.11 10^6/uL Hemoglobin 9.0 L 11.5-16.0 g/dL Hematocrit 28 L 35-52 % Mean Corpuscular Volume 93 80-99 fL Mean Corpuscular Hemoglobin 30 25-34 pg Mean Corpuscular Hemoglobin Concent 33 32-36 g/dL Red Cell Distribution Width 15.2 H 10.0-14.5 % Platelet Count 158 130-400 10^3/uL Mean Platelet Volume 10.0 9.0-12.2 fL Immature Granulocyte % (Auto) 1 % Neutrophils (%) (Auto) 57 42-75 % Lymphocytes (%) (Auto) 26 12-44 % Monocytes (%) (Auto) 16 H 0-12 % Eosinophils (%) (Auto) 0 0-10 % Basophils (%) (Auto) 0 0-10 % Neutrophils # (Auto) 5.0 1.8-7.8 10^3/uL Lymphocytes # (Auto) 2.3 1.0-4.0 10^3/uL Monocytes # (Auto) 1.4 H 0.0-1.0 10^3/uL Eosinophils # (Auto) 0.0 0.0-0.3 10^3/uL Basophils # (Auto) 0.0 0.0-0.1 10^3/uL Immature Granulocyte # (Auto) 0.1 0.0-0.1 10^3/uL Neutrophils % (Manual) 53 % Lymphocytes % (Manual) 23 % Monocytes % (Manual) 20 % Eosinophils % (Manual) 1 % Basophils % (Manual) 0 % Band Neutrophils 3 % Blood Morphology Comment NORMAL Triglycerides Level 99 <150 MG/DL Cholesterol Level 93 < 200 MG/DL LDL Cholesterol Direct 41 1-129 MG/DL VLDL Cholesterol 20 5-40 MG/DL HDL Cholesterol 27 L 40-60 MG/DL Glucometer 107 130 H 70-110 MG/DL Radiology CARDIAC CATHETERIZATION (11/17/2021): 1. Hemodynamic shock of unclear etiology, probably noncardiac. Norepinephrine infusion had previously been discontinued but was restarted in the cardiac catheterization laboratory. 2. There is moderate disease of the proximal left anterior descending coronary artery and ostium of the left circumflex coronary artery. 3. The patient has normal left ventricular systolic function with an estimated ejection fraction of 55-60% by echocardiogram obtained earlier today. 4. The patient may have suffered a type II non-ST elevation myocardial infarction due to supply/demand mismatch from her ongoing hemodynamic shock. ECHOCARDIOGRAM (11/17/2021): 1. This is a technically difficult study due to poor image quality secondary to poor acoustic windows. 2. Left ventricle: The cavity size is normal. There is mild concentric hypertrophy. Systolic function is normal. The estimated ejection fraction is 55- 60%. Doppler parameters are consistent with abnormal left ventricular relaxation (grade 1 diastolic dysfunction). 3. Regional wall motion abnormality: Hypokinesis of the apical lateral and apical myocardium. 4. Left atrium: The left atrium is moderately dilated with a volume index ranging from 39-58 mL/m. 5. Mitral valve: There is mild mitral regurgitation. 6. Aortic valve: There is mild aortic regurgitation with a pressure half-time of 500 ms. 7. Tricuspid valve: There is mild tricuspid regurgitation. 8. Pericardium, extracardiac: There is a small, anterior pericardial effusion. 9. Pulmonary arteries: The estimated pulmonary artery pressure is 29 mmHg assuming a right atrial pressure of 5 mmHg. ECG Impression ECG Comment Electrocardiogram from this morning shows sinus rhythm with left anterior hemiblock, probable old anterior myocardial infarction but now with new anterolateral ST-T wave changes concerning for ischemia. Diagnosis/Problems Diagnosis/Problems (1) NSTEMI (non-ST elevated myocardial infarction) Status: Acute Assessment & Plan: She appears to be suffering a non-ST elevation myocardial infarction. She has ongoing chest discomfort. She also has shock of undetermined etiology. Fortunately, her ejection fraction is normal. I recommend further evaluation with a cardiac catheterization. I have explained the benefits and risks of the procedure to the patient and she is in agreement to proceed. The results of the cardiac catheterization are as above. I suspect she may have had a type II non-ST elevation myocardial infarction due to the hemodynamic shock of undetermined etiology. I recommend she continue on aspirin and statin medication. We can consider starting beta-stacy once her shock resolves. (2) Shock Status: Acute Assessment & Plan: Exact etiology unclear. She has a normal ejection fraction and no significant epicardial coronary artery disease that required revascularization. She had been weaned off norepinephrine earlier today but dur ing the cardiac catheterization, again developed severe hypotension and the norepinephrine infusion was restarted. I would question whether or not she may have underlying sepsis. (3) Takotsubo cardiomyopathy Assessment & Plan: She had a previous history of Takotsubo cardiomyopathy but there was no evidence of this on her echocardiogram from earlier today. (4) Primary hypertension Status: Chronic Assessment & Plan: All antihypertensive medication is on hold in light of the ongoing hemodynamic shock. (5) Mixed hyperlipidemia Status: Chronic Assessment & Plan: Her LDL was not that elevated but in light of her coronary artery disease, I have started intensive dose statin medication. (6) Stage 3a chronic kidney disease Assessment & Plan: She was given vigorous intravenous fluids to help prevent co ntrast-induced nephrotoxicity. (7) Type 2 diabetes mellitus with complication Status: Chronic Assessment & Plan: This is being managed by the hospitalist. CARLOS JOHNSON JR, MD Nov 17, 2021 09:38
[2021-11-17] MEDS ORDERED: NS IV 1000 ML 1,000 ML IV ONE (09:45)
[2021-11-17] MEDS ORDERED: CATHETER FLUSH 10 ML SYR IV PRN (09:45)
[2021-11-17 09:56] LABS: CHOLESTEROL 93 MG/DL (< 200); HDL CHOLESTEROL 27 MG/DL (40-60); TRIGLYCERIDES 99 MG/DL (<150); VLDL CHOLESTEROL 20 MG/DL (5-40)
--- NOTE | 2021-11-17 10:17 | History & Physical ---
HPI History of Present Illness: 81 yo female who came to the hospital due to chest pain and weakness. She was so weak yesterday morning she couldn't get out of bed. She was recently hospitalized in [place] for pneumonia early in October, and then was seen at [place] [facility] for chest discomfort last week and they suspected ulcer per her report. She came in again because of her progressive weakness, but the chest pain has mostly been present the whole time as well. She does have chronic back pain and fibromyalgia which she takes pain medication for as well. Source: patient Date seen by provider: Nov 17, 2021 Time Seen by Provider: 10:15 Attending Physician Javier Valero MD PCP Admitting Physician: Yanni Ferrari DO Attending Physician: Brittney Mayo MD Consult Date of Admission Nov 17, 2021 at 00:57 Home Medications Home Medications Reviewed patient Home Medication Reconciliation performed by pharmacy medication reconciliations fiberglass quality technician and/or nursing. Patients Allergies have been reviewed. Allergies Coded Allergies: methotrexate (Verified Allergy, Unknown, 11/13/20) KTJ-Vnnnba-Wgzzey Hx Patient Social History Smoking Status: Former Smoker 2nd Hand Smoke Exposure: No Recent Hopitalizations: No Alcohol Use?: Yes (rare) Immunizations Up To Date First/Initial COVID19 Vaccinat: 08/01/2020 Second COVID19 Vaccination Tony: 09/05/2020 Past Medical History PMHx: HTN NIDDM HLD GERD Chronic anemia hypothyroidism SurgHx: Cholecystectomy Hysterectomy Family Medical History Significant Family History: No Pertinent Family Hx Review of Systems (CH[facility]) Constitutional: No fever; malaise Respiratory: short of breath Cardiovascular: chest pain Reviewed Test Results Reviewed Test Results Lab Laboratory Tests Test 11/17/21 02:10 11/17/21 07:35 11/17/21 11:17 Range/Units Sodium Level 136 135-145 MMOL/L Potassium Level 4.1 3.6-5.0 MMOL/L Chloride Level 103 98-107 MMOL/L Carbon Dioxide Level 20 L 21-32 MMOL/L Anion Gap 13 5-14 MMOL/L Blood Urea Nitrogen 20 H 7-18 MG/DL Creatinine 1.16 0.60-1.30 MG/DL Estimat Glomerular Filtration Rate 48 BUN/Creatinine Ratio 17 Glucose Level 165 H 70-105 MG/DL Calcium Level 8.1 L 8.5-10.1 MG/DL Corrected Calcium 8.8 8.5-10.1 MG/DL Total Bilirubin 0.5 0.1-1.0 MG/DL Aspartate Amino Transf (AST/SGOT) 28 5-34 U/L Alanine Aminotransferase (ALT/SGPT) 10 0-55 U/L Alkaline Phosphatase 76 40-136 U/L Troponin I 2.723 *H 3.705 *H <0.028 NG/ML Total Protein 5.6 L 6.4-8.2 GM/DL Albumin 3.1 L 3.2-4.5 GM/DL White Blood Count 8.8 4.3-11.0 10^3/uL Red Blood Count 2.97 L 3.80-5.11 10^6/uL Hemoglobin 9.0 L 11.5-16.0 g/dL Hematocrit 28 L 35-52 % Mean Corpuscular Volume 93 80-99 fL Mean Corpuscular Hemoglobin 30 25-34 pg Mean Corpuscular Hemoglobin Concent 33 32-36 g/dL Red Cell Distribution Width 15.2 H 10.0-14.5 % Platelet Count 158 130-400 10^3/uL Mean Platelet Volume 10.0 9.0-12.2 fL Immature Granulocyte % (Auto) 1 % Neutrophils (%) (Auto) 57 42-75 % Lymphocytes (%) (Auto) 26 12-44 % Monocytes (%) (Auto) 16 H 0-12 % Eosinophils (%) (Auto) 0 0-10 % Basophils (%) (Auto) 0 0-10 % Neutrophils # (Auto) 5.0 1.8-7.8 10^3/uL Lymphocytes # (Auto) 2.3 1.0-4.0 10^3/uL Monocytes # (Auto) 1.4 H 0.0-1.0 10^3/uL Eosinophils # (Auto) 0.0 0.0-0.3 10^3/uL Basophils # (Auto) 0.0 0.0-0.1 10^3/uL Immature Granulocyte # (Auto) 0.1 0.0-0.1 10^3/uL Neutrophils % (Manual) 53 % Lymphocytes % (Manual) 23 % Monocytes % (Manual) 20 % Eosinophils % (Manual) 1 % Basophils % (Manual) 0 % Band Neutrophils 3 % Blood Morphology Comment NORMAL Triglycerides Level 99 <150 MG/DL Cholesterol Level 93 < 200 MG/DL LDL Cholesterol Direct 41 1-129 MG/DL VLDL Cholesterol 20 5-40 MG/DL HDL Cholesterol 27 L 40-60 MG/DL Glucometer 107 70-110 MG/DL Physical Exam-([facility]) Physical Exam Vital Signs VS - Last 72 Hours, by Label 11/17/21 11/17/21 11/17/21 11/17/21 01:06 01:08 01:10 01:20 Temp 36.9 Pulse 77 72 75 69 Resp 22 17 13 B/P (MAP) 108/68 98/69 97/52 Pulse Ox 95 96 95 O2 Delivery Room Air Room Air Room Air 11/17/21 11/17/21 11/17/21 11/17/21 01:39 02:00 02:01 02:03 Pulse 71 73 74 Resp 28 11 B/P (MAP) 116/76 119/75 119/75 Pulse Ox 97 96 O2 Delivery Room Air Room Air Room Air 11/17/21 11/17/21 11/17/21 11/17/21 03:00 04:00 04:03 05:15 Pulse 72 73 79 Resp 16 16 24 B/P (MAP) 91/56 89/59 117/75 Pulse Ox 96 94 100 O2 Delivery Room Air Room Air Room Air Room Air 11/17/21 11/17/21 11/17/21 11/17/21 06:00 07:00 07:00 08:00 Temp 36.1 Pulse 59 75 73 65 Resp 13 16 15 B/P (MAP) 100/63 114/73 103/61 Pulse Ox 100 100 100 O2 Delivery Room Air Room Air Room Air 11/17/21 11/17/21 11/17/21 11/17/21 09:00 10:00 11:00 13:00 Pulse 72 63 77 64 Resp 14 24 24 15 B/P (MAP) 122/95 103/61 129/72 108/66 Pulse Ox 100 100 100 93 O2 Delivery Room Air Room Air Room Air Room Air 11/17/21 11/17/21 11/17/21 13:15 13:20 14:00 Temp 36.2 Pulse 65 66 Resp 15 B/P (MAP) 109/65 Pulse Ox 93 O2 Delivery Room Air Capillary Refill : General Appearance: mild distress (due to discomfort) Respiratory: lungs clear, normal breath sounds Cardiovascular: regular rate, rhythm, no murmur Gastrointestinal: normal bowel sounds, non tender, soft Extremities: no pedal edema Neurologic/Psychiatric: alert, oriented x 3 Skin: normal color, warm/dry Assessment/Plan Assessment/Plan Admission Status: Inpatient Order (span 2 midnights) Reason for Inpatient Admission: shock requiring vasopressor (1) Type 2 diabetes mellitus with complication Status: Chronic Assessment & Plan: Hold home metformin, sliding scale insulin as needed. (2) Shock Status: Acute Assessment & Plan: Suspect cardiogenic, started on norepinephrine, appreciate Cardiology recommendations. Hold home anti-hypertensives. (3) NSTEMI (non-ST elevated myocardial infarction) Status: Acute Assessment & Plan: Cardiology consulted, appreciate recommendations, plan for cath this morning per patient report. (4) Primary hypertension Status: Chronic Assessment & Plan: Hold home meds due to hypotension. (5) Mixed hyperlipidemia Status: Chronic Assessment & Plan: Resume home statin. (6) Hypothyroidism Status: Chronic Assessment & Plan: Resume home levothyroxine. (7) DVT prophylaxis Status: Acute Assessment & Plan: On treatment dose enoxaparin on admit. BRITTNEY MAYO MD Nov 17, 2021 10:17
[2021-11-17] MEDS ORDERED: HEParin (CATH LAB) 1,000 ML IV ONE (10:25)
[2021-11-17] MEDS ORDERED: LIDOCAINE 1% INJ 20 ML VIAL ONE (10:25)
[2021-11-17] MEDS ORDERED: fentaNYL INJ 100 MCG/2 ML AMP ONE (10:57)
[2021-11-17] MEDS ORDERED: HEParin 1000 UNIT/ML (10ML VIAL) FOR BOLUS ONE (10:57)
[2021-11-17] MEDS ORDERED: MIDAZOLAM 5 MG/5 ML (VERSED) VIAL ONE (10:57)
[2021-11-17] MEDS ORDERED: VERAPAMIL 5 MG/2 ML (CALAN) VIAL IV ONE (10:57)
[2021-11-17] MEDS ORDERED: NITRO DRIP 25000 MCG/D5W 250 ML IV ONE (10:58)
[2021-11-17] MEDS: inSUlin ASPART (NovoLOG) 1 UNIT/0.01 ML (CHARGE PER UNIT) SC SCH ×3 (11:30→21:14)
[2021-11-17] MEDS ORDERED: NS IV 1000 ML 1,000 ML ONE (11:32)
--- NOTE | 2021-11-17 12:09 | Pre-Op Note & Conscious Sedat ---
Pre-Operative Progress Note H&P Reviewed The H&P was reviewed, patient examined and no changes noted. Date H&P Reviewed: Nov 17, 2021 Time H&P Reviewed: 12:09 Pre-Op Diagnosis: NSTEMI Conscious Sedation Pre-Proced ASA Score 2 For ASA 3 and 4: Consider anesthesia and medical clearance. Also, for patients with a history of failed moderate sedation consider anesthesia. Airway Lungs Heart ASA score ASA 1: a normal healthy patient ASA 2: a patient with a mild systemic disease (mid diabetes, controlled hypertension, obesity ASA 3: a patient with a severe systemic disease that limits activity (angina, COPD, prior Myocardial infarction) ASA 4: a patient with an incapacitating disease that is a constant threat to life (CHF, renal failure) ASA 5: a moribund patient not expected to survive 24 hrs. (ruptured aneurysm) ASA 6: a declared brain- patient whose organs are being harvested. For emergent operations, add the letter E after the classification Mallampati Classification Grade 2 Sedation Plan Analgesia, Amnesia, Plan communicated to team members, Discussed options with patient/fam, Discussed risks with patient/fam The patient is an appropriate candidate to undergo the planned procedure, sedation, and anesthesia. The patient immediately re-assessed prior to indication. CARLOS JOHNSON JR, MD Nov 17, 2021 12:09
[2021-11-17] MEDS ORDERED: NOREPINEPHRINE 4 MG/4 ML (LEVOPHED) AMP IV ONE (12:46)
[2021-11-17] MEDS ORDERED: D5W 250 ML (EXCEL) BAG IV ONE (14:15)
[2021-11-17] MEDS ORDERED: MULT-1136 PO (15:19)
[2021-11-17] MEDS ORDERED: ALPR0.254 PO (15:19)
[2021-11-17] MEDS ORDERED: ASCO-262 PO (15:19)
[2021-11-17] MEDS ORDERED: METF-397 PO (15:19)
[2021-11-17] MEDS ORDERED: SUCR1TAB PO (15:19)
[2021-11-17] MEDS ORDERED: MONT-40 PO (15:19)
[2021-11-17] MEDS ORDERED: PANT40TA52 PO (15:19)
[2021-11-17] MEDS ORDERED: CARV3.122 PO (15:19)
--- NOTE | 2021-11-17 16:34 | Cardiac Cath Report ---
CARDIAC CATHETERIZATION DATE OF PROCEDURE: 11/17/2021 INDICATION: Non-ST elevation myocardial infarction. HISTORY: The patient is a 81 year old female with a known history of coronary artery disease who presented to [facility] with chest pain and dyspnea. Her troponin level was elevated at 0.3 by the outside lab and she was transferred to our hospital for further treatment and evaluation. Her troponin level was even more elevated but trending downwards. She has had ongoing chest and back pain. As such, she is now referred for further evaluation with a cardiac catheterization. Given her current clinical status, she is considered severely frail. PROCEDURES PERFORMED: 1. Left heart catheterization with hemodynamic measurements. 2. Diagnostic [place] coronary angiography. PROCEDURE DESCRIPTION: After informed consent and in the fasting state, left heart catheterization was performed through the right radial artery utilizing a 6 Haitian system by percutaneous approach. A 5 Haitian JR4 catheter and a 5 Haitian JL3.5 catheter were utilized for the diagnostic portion of the procedure. All catheters were exchanged over a guidewire. Following the procedure, a vascular band was applied to the radial artery access site and the sheath was removed with good hemostasis. RESULTS: HEMODYNAMICS: The aortic pressure with 65/36 mmHg. The left ventricular pr essure was 71/0 mmHg with a left ventricular end-diastolic pressure of 10 mmHg. There was no significant pressure gradient upon pullback across aortic valve. CORONARY ANGIOGRAPHY: Left main coronary artery: Free of significant disease. Left anterior descending coronary artery: There was a tubular 50% stenosis in the proximal segment with SAILAJA-3 flow. This formed a bifurcation lesion with a large first diagonal branch with Lawrence classification 1, 0, 0. Left circumflex coronary artery: There was a 50% stenosis in the ostium with SAILAJA-3 flow. Right coronary artery: Dominant and free of significant disease. IMPRESSION: 1. Hemodynamic shock of unclear etiology, probably noncardiac. Norepinephrine infusion had previously been discontinued but was restarted in the cardiac catheterization laboratory. 2. There is moderate disease of the proximal left anterior descending coronary artery and ostium of the left circumflex coronary artery. 3. The patient has normal left ventricular systolic function with an estimated ejection fraction of 55-60% by echocardiogram obtained earlier today. 4. The patient may have suffered a type II non-ST elevation myocardial infarction due to supply/demand mismatch from her ongoing hemodynamic shock. Certain portions of this document may have been dictated utilizing voice recognition technology. Inherent to this technology, typographical and grammatical errors may exist. As much as I am diligent to identify and correct these mistakes, some errors may remain in the document. CARLOS JOHNSON JR, MD Nov 17, 2021 16:34
[2021-11-17] MEDS: GABAPENTIN 300 MG (NEURONTIN) CAP PO SCH ×2 (17:12→21:07)
[2021-11-17] MEDS ORDERED: RT-ALBUTEROL SULF 2.5 MG/3 ML PRE-MIX VIAL IH PRN (18:45)
[2021-11-17] MEDS: ROSUVASTATIN 20 MG (CRESTOR) TABLET PO SCH (21:07)
[2021-11-17] MEDS: PANTOPRAZOLE 40 MG (PROTONIX) TAB PO SCH (21:07)
[2021-11-17] MEDS: MONTELUKAST 10 MG (SINGULAIR) TAB PO SCH (21:07)
[2021-11-18] MEDS: NS IV 1000 ML 1,000 ML IV SCH ×4 (01:26→15:16)
[2021-11-18 03:52] LABS: BASOPHILS % (AUTO) 0 % (0-10); EOSINOPHILS % (AUTO) 0 % (0-10); MONOCYTES % (AUTO) 11 % (0-12)
[2021-11-18 03:54] LABS: HEMATOCRIT 26 % (35-52); HEMOGLOBIN 8.2 g/dL (11.5-16.0); LYMPHOCYTES # (AUTO) 1.8 10^3/uL (1.0-4.0); LYMPHOCYTES % (AUTO) 25 % (12-44); MEAN CORPUSCULAR HEMOGLOBIN 30 pg (25-34); MEAN CORPUSCULAR HGB CONC 32 g/dL (32-36); MEAN CORPUSCULAR VOLUME 93 fL (80-99); MEAN PLATELET VOLUME 10.4 fL (9.0-12.2); MONOCYTES # (AUTO) 0.8 10^3/uL (0.0-1.0); NEUTROPHILS # (AUTO) 4.5 10^3/uL (1.8-7.8); NEUTROPHILS % (AUTO) 64 % (42-75); PLATELET COUNT 144 10^3/uL (130-400); WHITE BLOOD COUNT 7.1 10^3/uL (4.3-11.0)
[2021-11-18 04:02] LABS: ALBUMIN 2.8 GM/DL (3.2-4.5); POTASSIUM 4.1 MMOL/L (3.6-5.0)
[2021-11-18 04:03] LABS: CALCIUM 7.4 MG/DL (8.5-10.1)
[2021-11-18 04:04] LABS: TOTAL PROTEIN 5.3 GM/DL (6.4-8.2)
[2021-11-18 04:06] LABS: BILIRUBIN,TOTAL 0.3 MG/DL (0.1-1.0)
[2021-11-18 04:07] LABS: PHOSPHORUS 2.2 MG/DL (2.3-4.7)
[2021-11-18 04:08] LABS: CREATININE SERUM 0.82 MG/DL (0.60-1.30)
[2021-11-18 04:11] LABS: MAGNESIUM 1.3 MG/DL (1.6-2.4)
[2021-11-18] MEDS: KCL 20 MEQ TAB (K-DUR) PO SCH (04:18)
[2021-11-18] MEDS: MAGNESIUM 1 GM/100 ML IVPB 100 ML IV SCH ×3 (04:18→05:23)
[2021-11-18] MEDS: inSUlin ASPART (NovoLOG) 1 UNIT/0.01 ML (CHARGE PER UNIT) SC SCH ×4 (04:18→20:15)
[2021-11-18] MEDS: POTASSIUM CL 10MEQ/50ML IVPB 50 ML IV SCH (04:18)
[2021-11-18] MEDS ORDERED: MAGNESIUM 1 GM/100 ML IVPB 400 ML IV ONE (04:27)
[2021-11-18] MEDS: ENOXAPARIN 40 MG/0.4 ML (LOVENOX) SYR SC SCH (05:23)
[2021-11-18] MEDS: ASPIRIN E.C. 81 MG (ECOTRIN) TAB PO SCH (09:14)
[2021-11-18] MEDS: LEVOTHYROXINE 88 MCG (LEVOTHORID) TAB PO SCH (09:14)
[2021-11-18] MEDS: GABAPENTIN 300 MG (NEURONTIN) CAP PO SCH ×4 (09:15→20:14)
[2021-11-18] MEDS: DOCUSATE SODIUM 100 MG (COLACE) CAP PO SCH ×2 (09:30→20:14)
[2021-11-18] MEDS: SENNOSIDES 8.6 MG (SENOKOT) TAB PO SCH ×2 (09:30→20:14)
[2021-11-18] MEDS ORDERED: RT-ALBUTEROL/IPRATROPIUM 3 ML (DUONEB) VIAL INH ONE (10:15)
[2021-11-18] MEDS ORDERED: RT-BUDESONIDE NEBS 0.5 MG/2ML (PULMICORT) AMP INH SCH (10:15)
--- NOTE | 2021-11-18 10:25 | Progress Note - Hospitalist ---
Subjective HPI/CC On Admission Date Seen by Provider: Nov 18, 2021 Time Seen by Provider: 09:00 Subjective/Events-last exam Pt is about the same She reports that she has chest pain Troponin is elevated at 14, Dr. Talavera is managing Lungs are very coarse, will get chest x-rays, start Solumedrol, Pulmicort BID, and Nebulizer treatments q4 I did review the labs Family at the bedside No other concerns COVID and flu swabs ordered Review of Systems Pulmonary: Dyspnea, Cough Cardiovascular: Chest Pain Objective Exam Vital Signs Vital Signs Date Time Temp Pulse Resp B/P (MAP) Pulse Ox O2 Delivery O2 Flow Rate FiO2 11/18/21 19:50 36.2 84 16 125/80 97 Nasal Cannula 2.00 11/17/21 21:24 28 Capillary Refill : Less Than 3 Seconds General Appearance: No Apparent Distress, WD/WN, Chronically ill, Obese Respiratory: Crackles, Decreased Breath Sounds, Rales, Wheezing Cardiovascular: Regular Rate, Rhythm Neurologic/Psychiatric: Alert, Oriented x3, No Motor/Sensory Deficits, Normal Mood/Affect Results/Procedures Lab Laboratory Tests 11/18/21 03:30 Patient resulted labs reviewed. Assessment/Plan Assessment and Plan Assess & Plan/Chief Complaint Assessment: Cardiogenic shock NSTEMI COVID PNA Hypoxia Hypothyroidism Plan: Isolation IV steroids MDI's DASHA Aguilar DO Nov 18, 2021 10:25
--- NOTE | 2021-11-18 10:44 | Diagnostic Imaging Report ---
EXAMINATION: Chest, 2 views. HISTORY: Wheezing. COMPARISON: 10/23/2021. FINDINGS: The lung volumes are hyperinflated. No focal consolidation is seen. No large pleural effusion or pneumothorax is seen. The cardiomediastinal silhouette is prominent. No acute osseous abnormality is seen. Prior kyphoplasty changes are visualized in the lower thoracic spine. IMPRESSION: 1. Hyperinflated lung volumes which can be seen with COPD. No focal consolidations. 2. Cardiomegaly. No overt pulmonary edema. Dictated by: Dictated on workstation # [id number]
--- NOTE | 2021-11-18 11:55 | Tele-ICU Consult ---
History of Present Illness History of Present Illness Date Seen by Provider: Nov 18, 2021 Time Seen by Provider: 11:55 Date of Admission (Tele-ICU Physician , consultation) Available chart/ vitals / labs / Images reviewed H&P is from ER notes Patient's information available about PMH, Shx, Fhx allergy reviewed in EMR. ROS as per chart and RN report Now in ICU, hemodynamically stable Video assessment done using teleICU camera, rest of exam as per RN Discussed with RN. Consultants: Hospital course: (11/17) 81yr old female admitted from [facility] with a NSTEMI. s/p Diagnostic LHC = Mod disease. 07/21- startedon steroids IV A/P Shock on presentation to ER - resolved, etiology not clear now - cxr clear , no UA here - no sourse for p[ossinle sepsis - card - EF is reasonable - ? PE -? endocrine ( if waas on steroids recetly Acute resp[ failure - as per notes - recently Tx in other hospital [facility] PNA, and suspected to have PUD - started on steroids 11/18- follow H/o CAD< CHF, history of Takotsubo cardiomyopathy - resolved - ECHO here EF 55 % -/p Diagnostic LHC = Mod disease. DM - follow ISS Lines : (Central Line Necessity Reviewed) [place]: OG: Nutrition: Analgesia: Anxiety/ delirium VTE Prophylaxis: mily 40 Stress Ulcer Prophylaxis: ppi Plans in collaboration with bedside consultants and IM MDs. Discussed with RN to reach out if any questions or concerns A total of 23 minutes of critical care time was devoted to this patient today, required to treat and/or prevent further deterioration of critical care condition ( as above ) . Allergies and Home Medications Allergies Coded Allergies: methotrexate (Verified Allergy, Unknown, 11/13/20) Home Medications ALPRAZolam 0.25 Mg Tablet, 0.25 MG PO Q6H PRN for ANXIETY, (Reported) Ascorbate Calcium 500 Mg Tablet, 500 MG PO DAILY, (Reported) Aspirin 81 Mg Tablet.dr, 81 MG PO HS, (Reported) Atorvastatin Calcium 40 Mg Tablet, 40 MG PO HS, (Reported) Carvedilol 3.125 Mg Tablet, 3.125 MG PO BID, (Reported) Cholecalciferol (Vitamin D3) 25 Mcg Tablet, 25 MCG PO DAILY, (Reported) Diphenhydramine HCl 25 Mg Capsule, 50 MG PO HS, (Reported) TAKES 2 (25MG) CAPS Folic Acid 1 Mg Tablet, 1 MG PO DAILY, (Reported) Gabapentin 300 Mg Capsule, 300 MG PO QID, (Reported) Levothyroxine Sodium 88 Mcg Tablet, 88 MCG PO DAILY, (Reported) Losartan Potassium 25 Mg Tablet, 25 MG PO DAILY, (Reported) Metformin HCl 500 Mg Tablet, 500 MG PO BID, (Reported) Montelukast Sodium 10 Mg Tablet, 10 MG PO HS, (Reported) Multivitamin 1 Each Tablet, 1 EACH PO DAILY, (Reported) Oxycodone HCl/Acetaminophen 1 Each Tablet, 1 TAB PO Q4H PRN for PAIN-MODERATE (5-7), (Reported) Pantoprazole Sodium 40 Mg Tablet.dr, 40 MG PO HS, (Reported) Sucralfate 1 Gram Tablet, 1 GM PO ACHS PRN for ULCER FLARE, (Reported) Vitamin B Complex 1 Each Tablet, 1 EACH PO DAILY, (Reported) Past Medical/Social/Family Hx Patient Social History Smoking Status: Former Smoker Alcohol Use?: Yes (rare) Immunizations Up To Date First/Initial COVID19 Vaccinat: 08/01/2020 Second COVID19 Vaccination Tony: 09/05/2020 Tetanus Booster (TDap): Unknown Current Status Primary Language: Serbian Past Medical History PMHx: HTN NIDDM HLD GERD Chronic anemia hypothyroidism SurgHx: Cholecystectomy Hysterectomy Review of Systems Constitutional: see HPI Focused Exam Height, Weight, BMI Height: 5'0" Weight: 125lbs. oz. [id number]; 28.41 BMI Method:Stated Exam Exam Patient acknowledged, consented, and participated in this virtual visit which was conducted using real time audio/video Vital Signs Date Time Temp Pulse Resp B/P (MAP) Pulse Ox O2 Delivery O2 Flow Rate FiO2 11/18/21 10:39 96 Nasal Cannula 2.00 11/18/21 10:38 96 Nasal Cannula 2.00 11/18/21 10:00 78 17 114/61 93 Nasal Cannula 2.00 11/18/21 09:00 65 15 103/54 98 Nasal Cannula 2.00 11/18/21 08:00 58 11/18/21 08:00 74 15 111/63 97 Nasal Cannula 2.00 11/18/21 07:33 64 11/18/21 07:00 68 14 87/50 94 Nasal Cannula 2.00 11/18/21 06:00 74 13 92/50 94 Nasal Cannula 2.00 11/18/21 05:00 85 16 111/57 93 Nasal Cannula 2.00 11/18/21 04:00 77 16 91/48 93 Nasal Cannula 2.00 11/18/21 03:45 95 Nasal Cannula 2.00 11/18/21 03:30 37.1 Nasal Cannula 2.00 11/18/21 03:00 85 13 98/55 94 Nasal Cannula 2.00 11/18/21 02:00 85 16 118/65 94 Nasal Cannula 2.00 11/18/21 01:00 85 18 130/65 95 Nasal Cannula 2.00 11/18/21 01:00 85 11/18/21 00:00 86 18 127/70 97 Nasal Cannula 2.00 11/17/21 23:00 92 18 128/74 95 Nasal Cannula 2.00 11/17/21 23:00 94 Nasal Cannula 2.00 11/17/21 23:00 37.4 Nasal Cannula 2.00 11/17/21 22:00 101 21 130/86 93 Nasal Cannula 2.00 11/17/21 21:24 95 Nasal Cannula 2.00 28 11/17/21 21:00 89 13 131/78 93 Nasal Cannula 2.00 11/17/21 20:00 89 26 135/81 95 Nasal Cannula 2.00 11/17/21 19:40 96 Nasal Cannula 2.00 11/17/21 19:37 Nasal Cannula 2.00 11/17/21 19:00 90 11/17/21 19:00 37.2 87 19 128/66 95 Room Air 11/17/21 18:00 78 20 117/96 91 Room Air 11/17/21 17:00 77 10 122/76 96 Room Air 11/17/21 16:00 98 Room Air 11/17/21 16:00 74 19 115/81 97 Room Air 11/17/21 15:27 36.1 11/17/21 15:00 73 22 122/92 92 Room Air 11/17/21 14:00 66 15 109/65 93 Room Air 11/17/21 13:20 36.2 11/17/21 13:15 65 11/17/21 13:00 64 15 108/66 93 Room Air 11/17/21 12:00 97 Room Air I & O 11/18/21 07:00 Intake Total 1925 ml Output Total 1000 ml Balance 925 ml Height & Weight Height: 5'0" Weight: 125lbs. oz. [id number]; 28.41 BMI Method:Stated General Appearance: No Apparent Distress Capillary Refill: Less Than 3 Seconds Gastrointestinal: normal bowel sounds, non tender, soft Results Lab Laboratory Tests 11/17/21 02:10 11/17/21 07:35 11/18/21 03:30 Assessment/Plan Assessment/Plan 1 SANDRA DICKSON MD Nov 18, 2021 11:55
[2021-11-18] MEDS: morphine INJ 4 MG/ML 1 ML (VIAL/SYRINGE) IV PRN ×2 (12:08→21:43)
[2021-11-18] MEDS: methylPREDNISolone 40 MG/ML (Solu-MEDROL) VIAL IV SCH ×2 (12:09→17:18)
[2021-11-18] MEDS ORDERED: RT-ALBUTEROL/IPRATROPIUM 3 ML (DUONEB) VIAL INH SCH (14:00)
[2021-11-18] MEDS: OXYMETAZOLINE (AFRIN) 0.05% NA 30 ML BTL SCH ×2 (15:12→20:14)
--- NOTE | 2021-11-18 16:44 | Cardiology Progress Note ---
Progress Note-Cardiology Events since last exam Date Seen by Provider: Nov 18, 2021 Time Seen by Provider: 16:39 Events since last exam I am following her due to probable type II non-ST elevation myocardial infar ction. Earlier today the hospitalist ordered a COVID test and this afternoon that came back positive. She is now in isolation. I did not see the patient today due to the COVID infection. I did speak with her nurse. Following the cardiac catheterization on 11/17, the norepinephrine infusion was weaned to off. She has not required any further vasopressors overnight. Her chest and back pain seem to be improving. She does remain in the intensive care unit. Certain portions of this document may have been dictated utilizing voice recognition technology. Inherent to this technology, typographical and grammatical errors may exist. As much as I am diligent to identify and correct these mistakes, some errors may remain in the document. Vitals Last set of Vitals Signs Vital Signs 11/17/21 11/18/21 21:24 16:00 Temp 36.5 Pulse 80 Resp 21 B/P (MAP) 103/73 Pulse Ox 96 O2 Delivery Nasal Cannula O2 Flow Rate 2.00 FiO2 28 Labs Labs Laboratory Tests 11/18/21 03:30 Exam Vital Signs Vital Signs Date Time Temp Pulse Resp B/P (MAP) Pulse Ox O2 Delivery O2 Flow Rate FiO2 11/18/21 16:00 80 21 103/73 96 Nasal Cannula 2.00 11/18/21 16:00 36.5 11/17/21 21:24 28 Physical Exam Due to the patient's COVID status, I viewed the patient from the doorway. General: The patient is not on a ventilator. HENT: Normocephalic. Atraumatic. Skin: There is no pallor. Neurologic: Oriented x3. Cranial nerves III through XII grossly intact. Moving all 4 extremities. Psychiatric: Appears cooperative. Labs Laboratory Tests Test 11/17/21 21:14 11/18/21 03:30 11/18/21 11:48 11/18/21 13:05 Range/Units Glucometer 116 H 170 H 70-110 MG/DL White Blood Count 7.1 4.3-11.0 10^3/uL Red Blood Count 2.74 L 3.80-5.11 10^6/uL Hemoglobin 8.2 L 11.5-16.0 g/dL Hematocrit 26 L 35-52 % Mean Corpuscular Volume 93 80-99 fL Mean Corpuscular Hemoglobin 30 25-34 pg Mean Corpuscular Hemoglobin Concent 32 32-36 g/dL Red Cell Distribution Width 15.5 H 10.0-14.5 % Platelet Count 144 130-400 10^3/uL Mean Platelet Volume 10.4 9.0-12.2 fL Immature Granulocyte % (Auto) 0 % Neutrophils (%) (Auto) 64 42-75 % Lymphocytes (%) (Auto) 25 12-44 % Monocytes (%) (Auto) 11 0-12 % Eosinophils (%) (Auto) 0 0-10 % Basophils (%) (Auto) 0 0-10 % Neutrophils # (Auto) 4.5 1.8-7.8 10^3/uL Lymphocytes # (Auto) 1.8 1.0-4.0 10^3/uL Monocytes # (Auto) 0.8 0.0-1.0 10^3/uL Eosinophils # (Auto) 0.0 0.0-0.3 10^3/uL Basophils # (Auto) 0.0 0.0-0.1 10^3/uL Immature Granulocyte # (Auto) 0.0 0.0-0.1 10^3/uL Percent Immature Platelet Fraction 2.5 0.0-7.6 % Sodium Level 136 135-145 MMOL/L Potassium Level 4.1 3.6-5.0 MMOL/L Chloride Level 106 98-107 MMOL/L Carbon Dioxide Level 20 L 21-32 MMOL/L Anion Gap 10 5-14 MMOL/L Blood Urea Nitrogen 14 7-18 MG/DL Creatinine 0.82 0.60-1.30 MG/DL Estimat Glomerular Filtration Rate 73 BUN/Creatinine Ratio 17 Glucose Level 111 H 70-105 MG/DL Calcium Level 7.4 L 8.5-10.1 MG/DL Corrected Calcium 8.4 L 8.5-10.1 MG/DL Phosphorus Level 2.2 L 2.3-4.7 MG/DL Magnesium Level 1.3 L 1.6-2.4 MG/DL Total Bilirubin 0.3 0.1-1.0 MG/DL Aspartate Amino Transf (AST/SGOT) 73 H 5-34 U/L Alanine Aminotransferase (ALT/SGPT) 12 0-55 U/L Alkaline Phosphatase 67 40-136 U/L Troponin I 14.729 *H <0.028 NG/ML Total Protein 5.3 L 6.4-8.2 GM/DL Albumin 2.8 L 3.2-4.5 GM/DL Influenza Type A (RT-PCR) Not Detected Not Detecte Influenza Type B (RT-PCR) Not Detected Not Detecte SARS-CoV-2 RNA (RT-PCR) Detected H Not Detecte Test 11/18/21 16:00 Range/Units Glucometer 237 H 70-110 MG/DL Diagnosis/Problems Diagnosis/Problems (1) NSTEMI (non-ST elevated myocardial infarction) Status: Acute Assessment & Plan: She appears to have suffered a non-ST elevation myocardial infarction. Her cardiac catheterization showed moderate disease. She does not require revascularization. Her ejection fraction is normal. I suspect she may have had a type II non-ST elevation myocardial infarction due to the shock. It is possible that the shock was caused by the newly diagnosed COVID infection. Continue aspirin and statin medication. I will also add clopidogrel. Her blood pressure is still too low for beta-stacy. (2) Shock Status: Acute Assessment & Plan: Exact etiology unclear. She has a normal ejection fraction and no significant epicardial coronary artery disease that required revascularization. She had been weaned off norepinephrine. I would question whether or not the COVID infection may have caused the shock. This now seems to have resolved. (3) Takotsubo cardiomyopathy Assessment & Plan: She had a previous history of Takotsubo cardiomyopathy but there was no evidence of this on her echocardiogram from this admission. (4) Primary hypertension Status: Chronic Assessment & Plan: All antihypertensive medication is on hold in light of the previous hemodynamic shock and now with continued low blood pressure. (5) Mixed hyperlipidemia Status: Chronic Assessment & Plan: Her LDL was not that elevated but in light of her coronary artery disease, I have started intensive dose statin medication. (6) Stage 3a chronic kidney disease Assessment & Plan: She was given vigorous intravenous fluids to help prevent contrast-induced nephrotoxicity. Her renal function has improved. (7) Type 2 diabetes mellitus with complication Status: Chronic Assessment & Plan: This is being managed by the hospitalist. CARLOS JOHNSON JR, MD Nov 18, 2021 16:44
[2021-11-18] MEDS ORDERED: CLOPIDOGREL 75 MG (PLAVIX) TABLET PO NR (16:45)
[2021-11-18] MEDS: RT-ALBUTEROL HFA 8.5 GM INHALER IH SCH ×2 (18:42→22:11)
[2021-11-18] MEDS: NOREPINEPHRINE 8 MG/250 ML 250 ML IV SCH (19:43)
[2021-11-18] MEDS: ROSUVASTATIN 20 MG (CRESTOR) TABLET PO SCH (20:14)
[2021-11-18] MEDS: MONTELUKAST 10 MG (SINGULAIR) TAB PO SCH (20:14)
[2021-11-18] MEDS: PANTOPRAZOLE 40 MG (PROTONIX) TAB PO SCH (20:14)
[2021-11-19] MEDS: methylPREDNISolone 40 MG/ML (Solu-MEDROL) VIAL IV SCH ×3 (00:19→11:32)
[2021-11-19] MEDS: morphine INJ 4 MG/ML 1 ML (VIAL/SYRINGE) IV PRN ×2 (01:28→21:05)
[2021-11-19] MEDS: RT-ALBUTEROL HFA 8.5 GM INHALER IH SCH ×6 (02:17→22:55)
[2021-11-19 05:08] LABS: BASOPHILS % (AUTO) 0 % (0-10); EOSINOPHILS % (AUTO) 0 % (0-10); HEMATOCRIT 26 % (35-52); HEMOGLOBIN 8.2 g/dL (11.5-16.0); LYMPHOCYTES # (AUTO) 0.4 10^3/uL (1.0-4.0); LYMPHOCYTES % (AUTO) 18 % (12-44); MEAN CORPUSCULAR HEMOGLOBIN 30 pg (25-34); MEAN CORPUSCULAR HGB CONC 32 g/dL (32-36); MEAN CORPUSCULAR VOLUME 94 fL (80-99); MEAN PLATELET VOLUME 9.8 fL (9.0-12.2); MONOCYTES # (AUTO) 0.1 10^3/uL (0.0-1.0); MONOCYTES % (AUTO) 3 % (0-12); NEUTROPHILS # (AUTO) 1.8 10^3/uL (1.8-7.8); NEUTROPHILS % (AUTO) 79 % (42-75); PLATELET COUNT 150 10^3/uL (130-400); WHITE BLOOD COUNT 2.3 10^3/uL (4.3-11.0)
[2021-11-19 05:21] LABS: ALBUMIN 3.2 GM/DL (3.2-4.5)
[2021-11-19 05:22] LABS: POTASSIUM 4.3 MMOL/L (3.6-5.0)
[2021-11-19 05:23] LABS: CALCIUM 7.5 MG/DL (8.5-10.1)
[2021-11-19 05:24] LABS: TOTAL PROTEIN 5.9 GM/DL (6.4-8.2)
[2021-11-19 05:26] LABS: BILIRUBIN,TOTAL 0.3 MG/DL (0.1-1.0)
[2021-11-19 05:27] LABS: PHOSPHORUS 2.4 MG/DL (2.3-4.7)
[2021-11-19 05:28] LABS: CREATININE SERUM 0.9 MG/DL (0.60-1.30)
[2021-11-19 05:30] LABS: MAGNESIUM 2.2 MG/DL (1.6-2.4)
[2021-11-19] MEDS: KCL 20 MEQ TAB (K-DUR) PO SCH (05:31)
[2021-11-19] MEDS: MAGNESIUM 1 GM/100 ML IVPB 100 ML IV SCH (05:31)
[2021-11-19] MEDS: POTASSIUM CL 10MEQ/50ML IVPB 50 ML IV SCH (05:31)
[2021-11-19] MEDS: ENOXAPARIN 40 MG/0.4 ML (LOVENOX) SYR SC SCH (05:37)
[2021-11-19] MEDS: inSUlin ASPART (NovoLOG) 1 UNIT/0.01 ML (CHARGE PER UNIT) SC SCH ×4 (05:37→21:26)
[2021-11-19] MEDS: SENNOSIDES 8.6 MG (SENOKOT) TAB PO SCH ×3 (09:07→21:28)
[2021-11-19] MEDS: DOCUSATE SODIUM 100 MG (COLACE) CAP PO SCH ×3 (09:07→21:28)
[2021-11-19] MEDS: ASPIRIN E.C. 81 MG (ECOTRIN) TAB PO SCH (09:07)
[2021-11-19] MEDS: LEVOTHYROXINE 88 MCG (LEVOTHORID) TAB PO SCH (09:07)
[2021-11-19] MEDS: GABAPENTIN 300 MG (NEURONTIN) CAP PO SCH ×4 (09:07→21:16)
[2021-11-19] MEDS: OXYMETAZOLINE (AFRIN) 0.05% NA 30 ML BTL SCH ×2 (09:07→21:26)
[2021-11-19] MEDS: CLOPIDOGREL 75 MG (PLAVIX) TABLET PO SCH (09:07)
--- NOTE | 2021-11-19 09:34 | Cardiology Progress Note ---
Progress Note-Cardiology Events since last exam Date Seen by Provider: Nov 19, 2021 Time Seen by Provider: 09:33 Events since last exam I am following her due to probable type II non-ST elevation myocardial infar ction in the setting of COVID infection that was diagnosed late during her hospitalization. She remains in the intensive care unit but on nasal cannula oxygen. I did not enter the patient's room due to her COVID status. I did speak to her nurse. The patient has been breathing easier. She has not been complaining of chest pain, palpitations, syncope, or ankle edema. Certain portions of this document may have been dictated utilizing voice recognition technology. Inherent to this technology, typographical and grammatical errors may exist. As much as I am diligent to identify and correct these mistakes, some errors may remain in the document. Vitals Last set of Vitals Signs Vital Signs 11/17/21 11/19/21 21:24 16:07 Temp 36.2 Pulse 76 Resp 16 B/P (MAP) 132/73 Pulse Ox 96 O2 Delivery Nasal Cannula O2 Flow Rate 2.00 FiO2 28 Labs Labs Laboratory Tests 11/19/21 04:50 Exam Vital Signs Vital Signs Date Time Temp Pulse Resp B/P (MAP) Pulse Ox O2 Delivery O2 Flow Rate FiO2 11/19/21 16:07 36.2 76 16 132/73 96 Nasal Cannula 2.00 11/17/21 21:24 28 Physical Exam Due to the patient's COVID status, I viewed the patient from the doorway. General: The patient is not on a ventilator. HENT: Normocephalic. Atraumatic. Skin: There is no pallor. Neurologic: Oriented x3. Cranial nerves III through XII grossly intact. Moving all 4 extremities. Psychiatric: Appears cooperative. Labs Laboratory Tests Test 11/18/21 20:10 11/19/21 04:50 11/19/21 10:37 11/19/21 14:25 Range/Units Glucometer 336 H 312 H 70-110 MG/DL White Blood Count 2.3 L 4.3-11.0 10^3/uL Red Blood Count 2.74 L 3.80-5.11 10^6/uL Hemoglobin 8.2 L 11.5-16.0 g/dL Hematocrit 26 L 35-52 % Mean Corpuscular Volume 94 80-99 fL Mean Corpuscular Hemoglobin 30 25-34 pg Mean Corpuscular Hemoglobin Concent 32 32-36 g/dL Red Cell Distribution Width 15.1 H 10.0-14.5 % Platelet Count 150 130-400 10^3/uL Mean Platelet Volume 9.8 9.0-12.2 fL Immature Granulocyte % (Auto) 0 % Neutrophils (%) (Auto) 79 H 42-75 % Lymphocytes (%) (Auto) 18 12-44 % Monocytes (%) (Auto) 3 0-12 % Eosinophils (%) (Auto) 0 0-10 % Basophils (%) (Auto) 0 0-10 % Neutrophils # (Auto) 1.8 1.8-7.8 10^3/uL Lymphocytes # (Auto) 0.4 L 1.0-4.0 10^3/uL Monocytes # (Auto) 0.1 0.0-1.0 10^3/uL Eosinophils # (Auto) 0.0 0.0-0.3 10^3/uL Basophils # (Auto) 0.0 0.0-0.1 10^3/uL Immature Granulocyte # (Auto) 0.0 0.0-0.1 10^3/uL Sodium Level 134 L 135-145 MMOL/L Potassium Level 4.3 3.6-5.0 MMOL/L Chloride Level 104 98-107 MMOL/L Carbon Dioxide Level 19 L 21-32 MMOL/L Anion Gap 11 5-14 MMOL/L Blood Urea Nitrogen 11 7-18 MG/DL Creatinine 0.90 0.60-1.30 MG/DL Estimat Glomerular Filtration Rate 65 BUN/Creatinine Ratio 12 Glucose Level 324 H 70-105 MG/DL Calcium Level 7.5 L 8.5-10.1 MG/DL Corrected Calcium 8.1 L 8.5-10.1 MG/DL Phosphorus Level 2.4 2.3-4.7 MG/DL Magnesium Level 2.2 1.6-2.4 MG/DL Total Bilirubin 0.3 0.1-1.0 MG/DL Aspartate Amino Transf (AST/SGOT) 43 H 5-34 U/L Alanine Aminotransferase (ALT/SGPT) 11 0-55 U/L Alkaline Phosphatase 68 40-136 U/L Troponin I 2.547 *H <0.028 NG/ML Total Protein 5.9 L 6.4-8.2 GM/DL Albumin 3.2 3.2-4.5 GM/DL D-Dimer 0.51 H 0.00-0.49 UG/ML Test 11/19/21 15:57 Range/Units Glucometer 285 H 70-110 MG/DL Diagnosis/Problems Diagnosis/Problems (1) NSTEMI (non-ST elevated myocardial infarction) Status: Acute Assessment & Plan: She appears to have suffered a non-ST elevation myocardial infarction. Her cardiac catheterization showed moderate disease. She does not require revascularization. Her ejection fraction is normal. I suspect she may have had a type II non-ST elevation myocardial infarction due to the shock possibly brought on by COVID infection. Continue aspirin, clopidogrel, and statin medication. Her blood pressure is improved today and I will restart carvedilol that she was taking at home. (2) Primary hypertension Status: Chronic Assessment & Plan: All antihypertensive medication was on hold in light of the previous hemodynamic shock. Her blood pressure has improved. I have ordered low dose carvedilol with hold parameters for low blood pressure. (3) Mixed hyperlipidemia Status: Chronic Assessment & Plan: Her LDL was not that elevated but in light of her coronary artery disease, I have started intensive dose statin medication. (4) Takotsubo cardiomyopathy Assessment & Plan: She had a previous history of Takotsubo cardiomyopathy but there was no evidence of this on her echocardiogram from this admission. (5) Shock Status: Resolved Assessment & Plan: Exact etiology unclear. She has a normal ejection fraction and no significant epicardial coronary artery disease that required revascularization. She had been weaned off norepinephrine as of 11/17. I would question whether or not the COVID infection may have caused the shock. This now seems to have resolved. Resolution Date/Time: 11/19/21 @ 13:25 (6) Stage 3a chronic kidney disease Assessment & Plan: She was given vigorous intravenous fluids to help prevent contrast-induced nephrotoxicity. Her renal function has improved. (7) Type 2 diabetes mellitus with complication Status: Chronic Assessment & Plan: This is being managed by the hospitalist. CARLOS JOHNSON JR, MD Nov 19, 2021 09:34
--- NOTE | 2021-11-19 10:34 | Tele-ICU Progress Note ---
Subjective Date Seen by a Provider: Nov 19, 2021 Time Seen by a Provider: 10:34 Subjective/Events-last exam (Tele-ICU Physician , Progress Note ) Available chart/ vitals / labs / Images reviewed Video assessment done using teleICU camera, rest of exam as per RN Discussed with RN , EXAM PER RN Events overnight : Afebrile FiO2 - I/O = Drips: Pressors: , hemodynamically stable Consultants: Hospital course: (11/17) 81yr old female admitted from [facility] with a NSTEMI. s/p Diagnost ic LHC = Mod disease. 07/21- started on steroids IV A/P Shock on presentation to ER -RESOLVED etiology not clear now (- cxr clear , no UA here - no sourse for possible sepsis - card - EF is reasonable - ? PE - with positive for covid wwill check ddimer -? endocrine ( if was on steroids recetly Acute resp failure - as per notes - recently Tx in other hospital for PNA, and suspected to have PUD - started on steroids 11/18- IMPROVED COVID + - in 4 l , cont steroids - ? RMDSV? -checking ddimer H/o CAD< CHF, history of Takotsubo cardiomyopathy - resolved - ECHO here EF 55 % -/p Diagnostic LHC = Mod disease. DM - follow ISS with hyperglycemia on steroids Lines : (Central Line Necessity Reviewed) [place]: OG: Nutrition: Analgesia: Anxiety/ delirium VTE Prophylaxis: mily 40 Stress Ulcer Prophylaxis: ppi Plans in collaboration with bedside consultants and IM MDs. Discussed with RN to reach out if any questions or concerns A total of 23 minutes of critical care time was devoted to this patient today, required to treat and/or prevent further deterioration of critical care condition ( as above ) . Sepsis Event Evaluation Height, Weight, BMI Height: 5'0" Weight: 125lbs. oz. 56.969837jk; 29.45 BMI Method:Stated Exam Exam Patient acknowledged, consented, and participated in this virtual visit which was conducted using real time audio/video Vital Signs Date Time Temp Pulse Resp B/P (MAP) Pulse Ox O2 Delivery O2 Flow Rate FiO2 11/19/21 08:00 96 Nasal Cannula 2.00 11/19/21 07:45 36.3 11/19/21 07:19 95 Nasal Cannula 2.00 11/19/21 06:00 72 10 128/77 96 Nasal Cannula 2.00 11/19/21 05:00 76 29 120/75 94 Nasal Cannula 2.00 11/19/21 04:50 36.2 Nasal Cannula 2.00 11/19/21 04:30 94 Nasal Cannula 2.00 11/19/21 04:00 78 13 112/64 95 Nasal Cannula 2.00 11/19/21 03:00 80 13 110/65 95 Nasal Cannula 2.00 11/19/21 02:17 96 Nasal Cannula 2.00 11/19/21 02:00 77 15 115/89 95 Nasal Cannula 2.00 11/19/21 01:00 78 17 115/74 95 Nasal Cannula 2.00 11/19/21 01:00 78 11/19/21 00:20 95 Nasal Cannula 2.00 11/19/21 00:00 36.4 Nasal Cannula 2.00 11/19/21 00:00 82 18 114/63 95 Nasal Cannula 2.00 11/18/21 23:00 82 21 106/60 94 Nasal Cannula 2.00 11/18/21 22:11 95 Nasal Cannula 2.00 11/18/21 22:00 81 13 130/76 96 Nasal Cannula 2.00 11/18/21 21:00 76 14 100/58 95 Nasal Cannula 2.00 11/18/21 20:00 80 22 94/63 95 Nasal Cannula 2.00 11/18/21 19:50 36.2 84 16 125/80 97 Nasal Cannula 2.00 11/18/21 19:50 96 Nasal Cannula 2.00 11/18/21 19:49 36.2 11/18/21 19:00 92 11/18/21 18:42 96 Nasal Cannula 2.00 11/18/21 18:00 71 13 117/63 96 Nasal Cannula 2.00 11/18/21 17:00 69 9 90/51 95 Nasal Cannula 2.00 11/18/21 16:00 97 Nasal Cannula 2.00 11/18/21 16:00 80 21 103/73 96 Nasal Cannula 2.00 11/18/21 16:00 36.5 11/18/21 15:00 80 15 95/55 92 Nasal Cannula 2.00 11/18/21 14:04 96 Nasal Cannula 2.00 11/18/21 14:00 85 15 121/72 96 Nasal Cannula 2.00 11/18/21 13:00 73 15 94/57 92 Nasal Cannula 2.00 11/18/21 12:39 76 11/18/21 12:00 92 Nasal Cannula 2.00 11/18/21 12:00 81 27 117/70 99 Nasal Cannula 2.00 11/18/21 11:00 76 10 114/59 92 Nasal Cannula 2.00 11/18/21 10:39 96 Nasal Cannula 2.00 11/18/21 10:38 96 Nasal Cannula 2.00 I & O 11/19/21 07:00 Intake Total 1375 ml Output Total 2425 ml Balance -1050 ml Height & Weight Height: 5'0" Weight: 125lbs. oz. 56.325536ny; 29.45 BMI Method:Stated General Appearance: No Apparent Distress, WD/WN, Chronically ill, Obese Respiratory: Crackles, Decreased Breath Sounds, Rales, Wheezing Cardiovascular: Regular Rate, Rhythm Capillary Refill: Less Than 3 Seconds Gastrointestinal: normal bowel sounds, non tender, soft Neurologic/Psychiatric: Alert, Oriented x3, No Motor/Sensory Deficits, Normal Mood/Affect Results Lab Laboratory Tests 11/18/21 03:30 11/19/21 04:50 Assessment/Plan Assessment/Plan ` SANDRA DICKSON MD Nov 19, 2021 10:34
--- NOTE | 2021-11-19 13:28 | Progress Note ---
Subjective Subjective/Events-last exam Pt states she is feeling fairly well. She feels like she needs to cough things up and can't, and her back is hurting a lot between her shoulder blades, which is different from her baseline pain. She notes she had 2 doses of COVID vaccination, had COVID infection last year at some point after vaccination, and hasn't had booster due to being sick every time she went in to the office. Objective Exam Last Set of Vital Signs Vital Signs Date Time Temp Pulse Resp B/P (MAP) Pulse Ox O2 Delivery O2 Flow Rate FiO2 11/19/21 11:35 36.0 11/19/21 10:54 97 Nasal Cannula 2.00 11/19/21 06:00 72 10 128/77 11/17/21 21:24 28 Capillary Refill : Less Than 3 Seconds I&O Intake and Output 11/19/21 00:00 Intake Total 1350 ml Output Total 2350 ml Balance -1000 ml Intake Oral 950 ml IV Total 400 ml Output Urine Total 2350 ml General: Alert, No Acute Distress Lungs: Other (faint end expiratory wheeze) Heart: Regular Rate Abdomen: Normal Bowel Sounds, Soft Neuro: Normal Speech Psych/Mental Status: Mood NL Results/Procedures Lab Laboratory Tests 11/18/21 16:00: Glucometer 237H 11/18/21 20:10: Glucometer 336H 11/19/21 04:50: White Blood Count 2.3L, Red Blood Count 2.74L, Hemoglobin 8.2L, Hematocrit 26L, Mean Corpuscular Volume 94, Mean Corpuscular Hemoglobin 30, Mean Corpuscular Hemoglobin Concent 32, Red Cell Distribution Width 15.1H, Platelet Count 150, Mean Platelet Volume 9.8, Immature Granulocyte % (Auto) 0, Neutrophils (%) (A uto) 79H, Lymphocytes (%) (Auto) 18, Monocytes (%) (Auto) 3, Eosinophils (%) (Auto) 0, Basophils (%) (Auto) 0, Neutrophils # (Auto) 1.8, Lymphocytes # (Auto) 0.4L, Monocytes # (Auto) 0.1, Eosinophils # (Auto) 0.0, Basophils # (Auto) 0.0, Immature Granulocyte # (Auto) 0.0, Sodium Level 134L, Potassium Level 4.3, Chloride Level 104, Carbon Dioxide Level 19L, Anion Gap 11, Blood Urea Nitrogen 11, Creatinine 0.90, Estimat Glomerular Filtration Rate 65, BUN/Creatinine Ratio 12, Glucose Level 324H, Calcium Level 7.5L, Corrected Calcium 8.1L, Phosphorus Level 2.4, Magnesium Level 2.2, Total Bilirubin 0.3, Aspartate Amino Transf (AST/SGOT) 43H, Alanine Aminotransferase (ALT/SGPT) 11, Alkaline Phosphatase 68, Troponin I 2.547*H, Total Protein 5.9L, Albumin 3.2 11/19/21 10:37: Glucometer 312H Microbiology 11/18/21 Gram Stain - Final, Resulted 11/18/21 Sputum Culture, Resulted Pending Assessment/Plan Assessment/Plan (1) Type 2 diabetes mellitus with complication Status: Chronic Assessment & Plan: Hold home metformin, sliding scale insulin as needed. -Increase sliding scale to B due to hyperglycemia from steroids. (2) Shock Status: Resolved Assessment & Plan: Suspect cardiogenic, started on norepinephrine, appreciate Cardiology recommendations. Hold home anti-hypertensives. Resolved, resume home antihypertensives when needed. (3) NSTEMI (non-ST elevated myocardial infarction) Status: Acute Assessment & Plan: Cardiology consulted, appreciate recommendations, cath done and stenting not indicated, troponin continued to increase yesterday, but is trending down now. Clopidogrel. (4) Primary hypertension Status: Chronic Assessment & Plan: Hold home meds due to hypotension. (5) Mixed hyperlipidemia Status: Chronic Assessment & Plan: Resume home statin. (6) Hypothyroidism Status: Chronic Assessment & Plan: Resume home levothyroxine. (7) COVID-19 Status: Acute Assessment & Plan: Will change solumedrol to dexamethasone PO today given significant improvement in wheezing. (8) COPD exacerbation Status: Acute Assessment & Plan: Reports continuous home O2 use, started on IV solumedrol yesterday and is feeling much better, change to dexamethasone as noted above. Continue albuterol. (9) DVT prophylaxis Status: Acute Assessment & Plan: On treatment dose enoxaparin on admit, now decreased to prophylaxis dosing. MARII WASHINGTON MD Nov 19, 2021 13:28
[2021-11-19] MEDS: MONTELUKAST 10 MG (SINGULAIR) TAB PO SCH (21:15)
[2021-11-19] MEDS: PANTOPRAZOLE 40 MG (PROTONIX) TAB PO SCH (21:15)
[2021-11-19] MEDS: ACETAMINOPHEN 325 MG TABLET PO PRN (21:16)
[2021-11-19] MEDS: ROSUVASTATIN 20 MG (CRESTOR) TABLET PO SCH (21:16)
[2021-11-20] MEDS: morphine INJ 4 MG/ML 1 ML (VIAL/SYRINGE) IV PRN (03:48)
[2021-11-20] MEDS: RT-ALBUTEROL HFA 8.5 GM INHALER IH SCH ×3 (03:55→11:19)
[2021-11-20 06:25] LABS: BASOPHILS % (AUTO) 0 % (0-10); EOSINOPHILS % (AUTO) 0 % (0-10); HEMATOCRIT 25 % (35-52); LYMPHOCYTES # (AUTO) 0.7 10^3/uL (1.0-4.0); LYMPHOCYTES % (AUTO) 13 % (12-44); MEAN CORPUSCULAR HEMOGLOBIN 30 pg (25-34); MEAN CORPUSCULAR HGB CONC 32 g/dL (32-36); MEAN CORPUSCULAR VOLUME 93 fL (80-99); MONOCYTES # (AUTO) 0.5 10^3/uL (0.0-1.0); MONOCYTES % (AUTO) 8 % (0-12); NEUTROPHILS # (AUTO) 4.6 10^3/uL (1.8-7.8); NEUTROPHILS % (AUTO) 78 % (42-75); PLATELET COUNT 172 10^3/uL (130-400); WHITE BLOOD COUNT 5.9 10^3/uL (4.3-11.0)
[2021-11-20 06:38] LABS: ALBUMIN 3.1 GM/DL (3.2-4.5)
[2021-11-20 06:39] LABS: POTASSIUM 4.3 MMOL/L (3.6-5.0)
[2021-11-20 06:40] LABS: CALCIUM 7.8 MG/DL (8.5-10.1)
[2021-11-20 06:41] LABS: TOTAL PROTEIN 5.8 GM/DL (6.4-8.2)
[2021-11-20 06:43] LABS: BILIRUBIN,TOTAL 0.3 MG/DL (0.1-1.0)
[2021-11-20 06:44] LABS: PHOSPHORUS 2.2 MG/DL (2.3-4.7)
[2021-11-20 06:45] LABS: CREATININE SERUM 0.93 MG/DL (0.60-1.30)
[2021-11-20] MEDS: inSUlin ASPART (NovoLOG) 1 UNIT/0.01 ML (CHARGE PER UNIT) SC SCH ×2 (06:46→11:56)
[2021-11-20] MEDS: ENOXAPARIN 40 MG/0.4 ML (LOVENOX) SYR SC SCH (06:46)
[2021-11-20] MEDS ORDERED: dexAMETHasone 6 MG TAB (DECADRON) PO SCH (07:00)
[2021-11-20] MEDS: GABAPENTIN 300 MG (NEURONTIN) CAP PO SCH ×2 (09:05→11:55)
[2021-11-20] MEDS: LEVOTHYROXINE 88 MCG (LEVOTHORID) TAB PO SCH (09:05)
[2021-11-20] MEDS: DOCUSATE SODIUM 100 MG (COLACE) CAP PO SCH (09:05)
[2021-11-20] MEDS: ASPIRIN E.C. 81 MG (ECOTRIN) TAB PO SCH (09:05)
[2021-11-20] MEDS: SENNOSIDES 8.6 MG (SENOKOT) TAB PO SCH (09:06)
[2021-11-20] MEDS: OXYMETAZOLINE (AFRIN) 0.05% NA 30 ML BTL SCH (09:06)
[2021-11-20] MEDS: CLOPIDOGREL 75 MG (PLAVIX) TABLET PO SCH (09:06)
[2021-11-20 11:04] VITALS: BP 128/77
[2021-11-20] MEDS ORDERED: ALBU8.5H9 IH (11:46)
[2021-11-20] MEDS ORDERED: CLOP75TA28 PO (11:46)
[2021-11-20] MEDS ORDERED: DEXA6TAB PO (11:46)
--- NOTE | 2021-11-20 12:11 | Discharge Summary ---
Discharge Summary Hospital Course Problems/Diagnosis: (1) Type 2 diabetes mellitus with complication Status: Chronic Assessment & Plan: Hold home metformin, sliding scale insulin as needed. -Increase sliding scale to B due to hyperglycemia from steroids. Discharged on home medications (2) Shock Status: Resolved Resolution Date/Time: 11/19/21 @ 13:25 Assessment & Plan: Suspect cardiogenic, started on norepinephrine, appreciate Cardiology recommendations. Hold home anti-hypertensives. Resolved, resume home antihypertensives on d/c. (3) NSTEMI (non-ST elevated myocardial infarction) Status: Acute Assessment & Plan: Cardiology consulted, appreciate recommendations, cath done and stenting not indicated, troponin continued to increase yesterday, but ultimately trended down. Discharged on aspirin and plavix. (4) Primary hypertension Status: Chronic (5) Mixed hyperlipidemia Status: Chronic Assessment & Plan: Resume home statin. (6) Hypothyroidism Status: Chronic Assessment & Plan: Resume home levothyroxine. (7) COVID-19 Status: Acute Assessment & Plan: 11/19 Will change solumedrol to dexamethasone PO today given significant improvement in wheezing. 11/20 on baseline home supplemental oxygen and feeling well, discharged to complete 10 days of dexamethasone. (8) COPD exacerbation Status: Acute Assessment & Plan: 11/19 Reports continuous home O2 use, started on IV solum edrol yesterday and is feeling much better, changed to dexamethasone as noted above. Continue albuterol. Hospital Course Date of Admission: Nov 17, 2021 at 00:57 Admission Diagnosis : Family Physician/Provider: Javier Valero MD Date of Discharge: 11/20/21 Discharge Diagnosis: See problem list Hospital Course: See problem list Labs and Pending Lab Test: Laboratory Tests 11/19/21 14:25: D-Dimer 0.51H 11/19/21 15:57: Glucometer 285H 11/19/21 20:22: Glucometer 258H 11/20/21 05:15: White Blood Count 5.9, Red Blood Count 2.68L, Hemoglobin 8.0L, Hematocrit 25L, Mean Corpuscular Volume 93, Mean Corpuscular Hemoglobin 30, Mean Corpuscular Hemoglobin Concent 32, Red Cell Distribution Width 15.0H, Platelet Count 172, Mean Platelet Volume 10.0, Immature Granulocyte % (Auto) 1, Neutrophils (%) (Auto) 78H, Lymphocytes (%) (Auto) 13, Monocytes (%) (Auto) 8, Eosinophils (%) (Auto) 0, Basophils (%) (Auto) 0, Neutrophils # (Auto) 4.6, Lymphocytes # (Auto) 0.7L, Monocytes # (Auto) 0.5, Eosinophils # (Auto) 0.0, Basophils # (Auto) 0.0, Immature Granulocyte # (Auto) 0.1, Sodium Level 138, Potassium Level 4.3, Chloride Level 108H, Carbon Dioxide Level 20L, Anion Gap 10, Blood Urea Nitrogen 20H, Creatinine 0.93, Estimat Glomerular Filtration Rate 63, BUN/Creatinine Ratio 22, Glucose Level 193H, Calcium Level 7.8L, Corrected Calcium 8.5, Phosphorus Level 2.2L, Magnesium Level 2.0, Total Bilirubin 0.3, Aspartate Amino Transf (AST/SGOT) 37H, Alanine Aminotransferase (ALT/SGPT) 13, Alkaline Phosphatase 64, Total Protein 5.8L, Albumin 3.1L 11/20/21 06:21: Glucometer 181H 11/20/21 11:04: Glucometer 309H Microbiology 11/18/21 Gram Stain - Final, Resulted 11/18/21 Sputum Culture - Preliminary, Resulted Usual Mixed Alice Serratia marcescens Susceptibility To Follow Home Meds Active Proair Hfa (Albuterol Sulfate) 90 Mcg Hfa.aer.ad 2 Puff IH Q4H PRN Dexamethasone 6 Mg Tablet 6 Mg PO DAILY@0700 8 Days Clopidogrel (Clopidogrel Bisulfate) 75 Mg Tablet 75 Mg PO DAILY Reported Pantoprazole Sodium 40 Mg Tablet.dr 40 Mg PO HS Vitamin C (Ascorbate Calcium) 500 Mg Tablet 500 Mg PO DAILY Multivitamin 1 Each Tablet 1 Each PO DAILY Metformin HCl 500 Mg Tablet 500 Mg PO BID Montelukast Sodium 10 Mg Tablet 10 Mg PO HS ALPRAZolam 0.25 Mg Tablet 0.25 Mg PO Q6H PRN Carvedilol 3.125 Mg Tablet 3.125 Mg PO BID Sucralfate 1 Gram Tablet 1 Gm PO ACHS PRN Vitamin D3 (Cholecalciferol (Vitamin D3)) 25 Mcg Tablet 25 Mcg PO DAILY Benadryl (Diphenhydramine HCl) 25 Mg Capsule 50 Mg PO HS TAKES 2 (25MG) CAPS Levothyroxine Sodium 88 Mcg Tablet 88 Mcg PO DAILY Neurontin (Gabapentin) 300 Mg Capsule 300 Mg PO QID Folic Acid 1 Mg Tablet 1 Mg PO DAILY Vitamin B Complex 1 Each Tablet 1 Each PO DAILY Aspirin EC (Aspirin) 81 Mg Tablet.dr 81 Mg PO HS Atorvastatin Calcium 40 Mg Tablet 40 Mg PO HS Losartan Potassium 25 Mg Tablet 25 Mg PO DAILY Oxycodon-Acetaminophen 7.5-325 (Oxycodone HCl/Acetaminophen) 1 Each Tablet 1 Tab PO Q4H PRN Assessment/Pt DC Instructions Follow up with primary doctor within a week of discharge. Discharge Diet: ADA Diet Activity as Tolerated: Yes Discharge Physical Examination Allergies: Coded Allergies: methotrexate (Verified Allergy, Unknown, 11/13/20) General Appearance: No Apparent Distress Respiratory: No Respiratory Distress, Wheezing (end expiratory) Cardiovascular: Regular Rate, Rhythm, No Murmur Gastrointestinal: Normal Bowel Sounds, Non Tender, Soft Skin: Warm/Dry Neurologic/Psychiatric: Alert, Normal Mood/Affect MARII WASHINGTON MD Nov 20, 2021 12:11
--- NOTE | 2021-11-20 12:23 | Progress Note ---
Standard Progress Note Progress Notes/Assess & Plan Date Seen by a Provider: Nov 20, 2021 Time Seen by a Provider: 12:22 Progress/Assessment & Plan The patient will be discharged home today. As such, I did not see the patient today. 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 CARLOS JOHNSON JR, MD Nov 20, 2021 12:22
--- NOTE | 2021-11-24 01:16 | Physician Query Clarification ---
PQ-Present on Admission Admission/Discharge Admission Date: Nov 17, 2021 at 00:57 Discharge Date: Nov 20, 2021 at 15:24 MARII Rodriguez MD History& risk factors: 81 y/o female patient presented with chest pain and weakness, admitted for shock requiring vasopressors. Clinical indicators: Type II NJ in the setting of COVID infection that was diagnosed during hospitalization, type II NJ due to shock possibly brought on by COVID infection, COVID swab on 11/18 was positive. Treatment: IV steroids, on isolation. Question: COVID infection was documented in 11/18 progress notes. Can you specify if this condition was present on admission? Please document a response in Progress Note or Discharge Summary. 1. Yes - Condition was present at the time of inpatient admission. 2. No - Condition was not present at the time of inpatient admission and it developed during the inpatient stay. 3. W - Provider is unable to clinically determine whether condition was present on admission or not. 4. Other [please specify] PHYSICIAN RESPONSE Condition was Present on Admit: Clinically unable to determine In responding to this query, please exercise your independent professional judgment. The purpose of this communication is to more accurately reflect the complexity of your patients condition. The fact that a question is asked does not imply that any particular answer is desired or expected. Thank you for your timely response to this clarification. Requestors name: [ ] Phone # [ ] THIS PHYSICIAN QUERY FORM IS A PERMANENT PART OF THE MEDICAL RECORD STEPHANIE,MIKE Nov 24, 2021 01:16 MARII WASHINGTON MD Nov 24, 2021 08:58
== END 2021-11-20 15:24 | disposition home or self-care (01) | DRG 280 ==
LOC: ICU 11-17 00:57 → 4TH 11-19 16:00
PROVIDERS: ADMIT Internal Medicine; ATTEND Family Medicine
PROC: 4A023N7 Measurement of Cardiac Sampling and Pressure, Left Heart, Percutaneous Approach (ICD-10-PCS; principal; 2021-11-17)
PROC: B2111ZZ Fluoroscopy of Multiple Coronary Arteries using Low Osmolar Contrast (ICD-10-PCS; 2021-11-17)
PROC: 8E0ZXY6 Isolation (ICD-10-PCS; 2021-11-18)
DX: R57.0 Cardiogenic shock (principal); U07.1 COVID-19; I21.A1 Myocardial infarction type 2; J12.82 Pneumonia due to coronavirus disease 2019; J96.01 Acute respiratory failure with hypoxia; J44.1 Chronic obstructive pulmonary disease with (acute) exacerbation; I51.81 Takotsubo syndrome; G89.29 Other chronic pain; M54.9 Dorsalgia, unspecified; M79.7 Fibromyalgia; Z87.891 Personal history of nicotine dependence; K21.9 Gastro-esophageal reflux disease without esophagitis; E03.9 Hypothyroidism, unspecified; E78.2 Mixed hyperlipidemia; Z79.84 Long term (current) use of oral hypoglycemic drugs; N18.31 Chronic kidney disease, stage 3a; I12.9 Hypertensive chronic kidney disease with stage 1 through stage 4 chronic kidney disease, or unspecified chronic kidney disease; E11.22 Type 2 diabetes mellitus with diabetic chronic kidney disease
CPT/HCPCS: 36415; 71046; 80053; 80061; 82947; 83036; 83735; 84100; 84484; 85007; 85025; 85027; 85379; 87070; 87077; 87081; 87186; 87205; 87636; 93005; 93306; 93458; 94640; 94760

== ENCOUNTER 2022-07-18 19:42 | Inpatient (IN) | payer MEDICARE, OTHER ==
[~2022-07-18] VITALS: Ht 152.4 cm; Wt 58.5 kg
[~2022-07-18 19:42] MED LIST changes: +ALBU8.5H9 IH; +ALPR0.254 PO; +ASCO-262 PO; +CARV3.122 PO; +CLOP75TA28 PO; +DEXA6TAB PO; +MONT-40 PO; +MULT-1136 PO; +PANT40TA52 PO; +SUCR1TAB PO
--- NOTE | 2022-07-18 19:44 | ED General ---
General Stated Complaint: ALTERED MENTAL STATUS History of Present Illness Date Seen by Provider: Jul 18, 2022 Time Seen by Provider: 19:42 Initial Comments 82 yr F with PMH of HTN/COPD-emphysema/DM2/CHF/hypothyroid/rheumatoid arthritis/ex smoker/cardiomyopathy/fibromyalgia/CAD/lumbar radiculopathy, is brought in by EMS with complaints of chest pain and altered mental status. Symptoms began approximately around 6 PM, which is 1 hour prior to EMS being called to home. EMS stated the pt slumped over and wasn't really responding to them once they got her in the ambulance, and she was given Narcan and became responsive and reactive shortly thereafter. She was given a second dose of Narcan as soon as she was rolled into the ER by EMS. Patient's son gives a history, and states that his mother was fine in the morning and he had just taken her shopping in town. Son reports that she took a nap and woke up with chest pain and confusion, and agitation. Patient's son also reports that she takes CBD oil with chocolate to help with the pain from fibromyalgia, and she had taken that today as well. Patient's son also reports that his mother is not suicidal and this behavior is unusual for her. EMS has brought patient's medication bucket in, and she has 3 large bottles of Percocet 7.5 mg. There is possibility that patient may have taken too many of the Percocet, and forgetting that she had taken it before. In the ER patient denies chest pain, palpitations, shortness of breath, abdominal pain, nausea and vomiting. Allergies and Home Medications Allergies Coded Allergies: methotrexate (Verified Allergy, Unknown, 11/13/20) Patient Home Medication List Home Medication List Reviewed: Yes ALPRAZolam (ALPRAZolam) 0.25 Mg Tablet, 0.25 MG PO Q6H PRN for ANXIETY, (Reported) Entered as Reported by: MICH KELLEY on 11/17/21 1519 Albuterol Sulfate (Proair Hfa) 90 Mcg Hfa.aer.ad, 2 PUFF IH Q4H PRN for SHORTNESS OF BREATH Prescribed by: MARII WASHINGTON on 11/20/21 1146 Ascorbate Calcium (Vitamin C) 500 Mg Tablet, 500 MG PO DAILY, (Reported) Entered as Reported by: MICH KELLEY on 11/17/21 1519 Aspirin (Aspirin EC) 81 Mg Tablet.dr, 81 MG PO HS, (Reported) Entered as Reported by: MICH KELLEY on 05/10/19 1530 Atorvastatin Calcium (Atorvastatin Calcium) 40 Mg Tablet, 40 MG PO HS, (Reported) Entered as Reported by: MICH KELLEY on 05/10/19 1530 Carvedilol (Carvedilol) 3.125 Mg Tablet, 3.125 MG PO BID, (Reported) Entered as Reported by: MICH KELLEY on 11/17/21 1519 Cholecalciferol (Vitamin D3) (Vitamin D3) 25 Mcg Tablet, 25 MCG PO DAILY, (Reported) Entered as Reported by: MICH KELLEY on 11/14/20 1123 Clopidogrel Bisulfate (Clopidogrel) 75 Mg Tablet, 75 MG PO DAILY Prescribed by: MARII WASHINGTON on 11/20/21 1146 Dexamethasone (Dexamethasone) 6 Mg Tablet, 6 MG PO DAILY@0700 Prescribed by: MARII WASHINGTON on 11/20/21 1146 Diphenhydramine HCl (Benadryl) 25 Mg Capsule, 50 MG PO HS, (Reported) Entered as Reported by: MICH KELLEY on 11/14/20 1116 Folic Acid (Folic Acid) 1 Mg Tablet, 1 MG PO DAILY, (Reported) Entered as Reported by: MICH KELLEY on 11/14/20 111 Gabapentin (Neurontin) 300 Mg Capsule, 300 MG PO QID, (Reported) Entered as Reported by: MICH KELLEY on 11/14/20 1116 Levothyroxine Sodium (Levothyroxine Sodium) 88 Mcg Tablet, 88 MCG PO DAILY, (Reported) Entered as Reported by: MICH KELLEY on 11/14/20 1116 Losartan Potassium (Losartan Potassium) 25 Mg Tablet, 25 MG PO DAILY, (Reported) Entered as Reported by: MICH KELLEY on 05/10/19 153 Metformin HCl (Metformin HCl) 500 Mg Tablet, 500 MG PO BID, (Reported) Entered as Reported by: MICH KELLEY on 11/17/21 151 Montelukast Sodium (Montelukast Sodium) 10 Mg Tablet, 10 MG PO HS, (Reported) Entered as Reported by: MICH KELLEY on 11/17/21 1519 Multivitamin (Multivitamin) 1 Each Tablet, 1 EACH PO DAILY, (Reported) Entered as Reported by: MICH KELLEY on 11/17/21 1519 Oxycodone HCl/Acetaminophen (Oxycodon-Acetaminophen 7.5-325) 1 Each Tablet, 1 TAB PO Q4H PRN for PAIN-MODERATE (5-7), (Reported) Entered as Reported by: MICH KELLEY on 05/10/19 1530 Pantoprazole Sodium (Pantoprazole Sodium) 40 Mg Tablet.dr, 40 MG PO HS, (Reported) Entered as Reported by: MICH KELLEY on 11/17/21 1519 Sucralfate (Sucralfate) 1 Gram Tablet, 1 GM PO ACHS PRN for ULCER FLARE, (Reported) Entered as Reported by: MICH KELLEY on 11/17/21 151 Vitamin B Complex (Vitamin B Complex) 1 Each Tablet, 1 EACH PO DAILY, (Reported) Entered as Reported by: MICH KELLEY on 11/14/20 1116 Review of Systems Review of Systems Constitutional: see HPI, other EENTM: no symptoms reported (Altered mental status) Respiratory: no symptoms reported Cardiovascular: chest pain Gastrointestinal: no symptoms reported Genitourinary: no symptoms reported Musculoskeletal: no symptoms reported Skin: no symptoms reported Psychiatric/Neurological: See HPI, Other (Altered mental status/agitation) Hematologic/Lymphatic: No Symptoms Reported Immunological/Allergic: no symptoms reported Physical Exam Vital Signs Vital Signs - First Documented 07/18/22 19:53 Temp 36.0 Pulse 103 Resp 20 B/P (MAP) 152/121 (131) Pulse Ox 92 O2 Delivery Room Air Capillary Refill : Height, Weight, BMI Height: '" Weight: lbs. oz. kg; BMI Method: General Appearance: Other (Agitation, altered mental status) HEENT: PERRL/EOMI, Normal ENT Inspection Neck: Full Range of Motion Respiratory: Lungs Clear, Normal Breath Sounds, No Accessory Muscle Use Cardiovascular: Regular Rate, Rhythm, No Edema Gastrointestinal: Normal Bowel Sounds, Non Tender, Soft Back: Normal Inspection, No CVA Tenderness, No Vertebral Tenderness Neurologic/Psychiatric: Alert, No Motor/Sensory Deficits, Other (Agitation, restlessness, confusion. AO x2) Skin: Normal Color Focused Exam Lactate Level 07/18/22 19:49: Lactic Acid Level 1.26 Lactic Acid Level Laboratory Tests Test 07/18/22 19:49 Lactic Acid Level 1.26 MMOL/L (0.50-2.00) Progress/Results/Core Measures Suspected Sepsis SIRS Temperature: Pulse: Respiratory Rate: Laboratory Tests 07/18/22 19:49: White Blood Count 7.4 Blood Pressure / Mean: 07/18/22 19:49: Lactic Acid Level 1.26 Laboratory Tests 07/18/22 19:49: Creatinine 1.15, INR Comment 1.0, Platelet Count 180, Total Bilirubin 0.4 Results/Orders Lab Results Laboratory Tests Test 07/18/22 19:49 07/18/22 20:23 07/18/22 21:00 Range/Units White Blood Count 7.4 4.3-11.0 10^3/uL Red Blood Count 3.66 L 3.80-5.11 10^6/uL Hemoglobin 10.6 L 11.5-16.0 g/dL Hematocrit 33 L 35-52 % Mean Corpuscular Volume 91 80-99 fL Mean Corpuscular Hemoglobin 29 25-34 pg Mean Corpuscular Hemoglobin Concent 32 32-36 g/dL Red Cell Distribution Width 14.2 10.0-14.5 % Platelet Count 180 130-400 10^3/uL Mean Platelet Volume 10.1 9.0-12.2 fL Immature Granulocyte % (Auto) 0 % Neutrophils (%) (Auto) 50 42-75 % Lymphocytes (%) (Auto) 36 12-44 % Monocytes (%) (Auto) 11 0-12 % Eosinophils (%) (Auto) 3 0-10 % Basophils (%) (Auto) 1 0-10 % Neutrophils # (Auto) 3.7 1.8-7.8 10^3/uL Lymphocytes # (Auto) 2.6 1.0-4.0 10^3/uL Monocytes # (Auto) 0.8 0.0-1.0 10^3/uL Eosinophils # (Auto) 0.2 0.0-0.3 10^3/uL Basophils # (Auto) 0.1 0.0-0.1 10^3/uL Immature Granulocyte # (Auto) 0.0 0.0-0.1 10^3/uL Prothrombin Time 13.7 12.2-14.7 SEC INR Comment 1.0 0.8-1.4 Activated Partial Thromboplast Time 30 24-35 SEC D-Dimer 0.37 0.00-0.49 UG/ML Sodium Level 136 135-145 MMOL/L Potassium Level 5.1 H 3.6-5.0 MMOL/L Chloride Level 103 98-107 MMOL/L Carbon Dioxide Level 22 21-32 MMOL/L Anion Gap 11 5-14 MMOL/L Blood Urea Nitrogen 28 H 7-18 MG/DL Creatinine 1.15 0.60-1.30 MG/DL Estimat Glomerular Filtration Rate 48 BUN/Creatinine Ratio 24 Glucose Level 168 H 70-105 MG/DL Lactic Acid Level 1.26 0.50-2.00 MMOL/L Calcium Level 9.0 8.5-10.1 MG/DL Corrected Calcium 8.9 8.5-10.1 MG/DL Magnesium Level 1.9 1.6-2.4 MG/DL Total Bilirubin 0.4 0.1-1.0 MG/DL Aspartate Amino Transf (AST/SGOT) 21 5-34 U/L Alanine Aminotransferase (ALT/SGPT) 9 0-55 U/L Alkaline Phosphatase 122 40-136 U/L Ammonia 26 11-32 UMOL/L Troponin I < 0.30 <0.30 NG/ML Pro-B-Type Natriuretic Peptide 588.4 H <450.0 PG/ML Total Protein 6.9 6.4-8.2 GM/DL Albumin 4.1 3.2-4.5 GM/DL Serum Alcohol < 10 <10 MG/DL Influenza Type A (RT-PCR) Not Detected Not Detecte Influenza Type B (RT-PCR) Not Detected Not Detecte SARS-CoV-2 RNA (RT-PCR) Not Detected Not Detecte Urine Color YELLOW Urine Clarity CLEAR Urine pH 6.5 5-9 Urine Specific [place] 1.015 L 1.016-1.022 Urine Protein NEGATIVE NEGATIVE Urine Glucose (UA) NEGATIVE NEGATIVE Urine Ketones NEGATIVE NEGATIVE Urine Nitrite NEGATIVE NEGATIVE Urine Bilirubin NEGATIVE NEGATIVE Urine Urobilinogen 0.2 < = 1.0 MG/DL Urine Leukocyte Esterase NEGATIVE NEGATIVE Urine RBC (Auto) NEGATIVE NEGATIVE Urine RBC NONE /HPF Urine WBC 0-2 /HPF Urine Crystals NONE /LPF Urine Bacteria TRACE /HPF Urine Casts PRESENT /LPF Urine Hyaline Casts 0-2 H /LPF Urine Mucus NEGATIVE /LPF Urine Culture Indicated NO Urine Opiates Screen NEGATIVE NEGATIVE Urine Oxycodone Screen POSITIVE H NEGATIVE Urine Methadone Screen NEGATIVE NEGATIVE Urine Propoxyphene Screen NEGATIVE NEGATIVE Urine Barbiturates Screen NEGATIVE NEGATIVE Ur Tricyclic Antidepressants Screen NEGATIVE NEGATIVE Urine Phencyclidine Screen NEGATIVE NEGATIVE Urine Amphetamines Screen NEGATIVE NEGATIVE Urine Methamphetamines Screen NEGATIVE NEGATIVE Urine Benzodiazepines Screen POSITIVE H NEGATIVE Urine Cocaine Screen NEGATIVE NEGATIVE Urine Cannabinoids Screen POSITIVE H NEGATIVE My Orders Orders - GILBERTO BERRY MD Cbc With Automated Diff (07/18/22 19:44) Magnesium (07/18/22 19:44) Chest 1 View Ap/Pa Only (07/18/22 19:44) Ekg Tracing (07/18/22 19:44) Comprehensive Metabolic Panel (07/18/22 19:44) Protime With Inr (07/18/22 19:44) Partial Thromboplastin Time (07/18/22 19:44) O2 (07/18/22 19:44) Monitor-Rhythm Ecg Trace Only (07/18/22 19:44) Aspirin Chewable Tablet (Baby Aspirin Ch (07/18/22 19:45) Ed Iv/Invasive Line Start (07/18/22 19:44) Fibrin Degradation Products (07/18/22 19:44) Troponin I Fs (07/18/22 19:44) Probnp Fs (07/18/22 19:44) Alcohol (07/18/22 19:45) Drug Screen Stat (Urine) (07/18/22 19:45) Lactic Acid Analyzer (07/18/22 19:45) Magnesium (07/18/22 19:45) Ua Culture If Indicated (07/18/22 19:45) Straight Cath (Urinary) (07/18/22 19:47) Ammonia (07/18/22 19:50) Ct Head Wo (07/18/22 19:54) Covid 19 Inhouse Test (07/18/22 20:03) Influenza A And B By Pcr (07/18/22 20:03) Lorazepam Injection (Ativan Injection) (07/18/22 20:30) Lorazepam Injection (Ativan Injection) (07/18/22 21:00) Troponin I Fs (07/18/22 21:43) Continuous Ekg Monitoring (07/18/22 21:43) Ekg Tracing (07/18/22 21:43) Cefepime Injection (Maxipime Injection) (07/18/22 22:15) Gabapentin Capsule/Tablet (Neurontin Cap (07/18/22 22:30) Gabapentin Capsule/Tablet (Neurontin Cap (07/18/22 22:30) Ed Admission (Communication) (07/18/22 22:33) Medications Given in ED Current Medications Medications Dose Ordered Sig/Eloy Route Start Time Stop Time Status Last Admin Dose Admin Lorazepam 1 mg ONCE ONCE IVP 07/18/22 20:30 07/18/22 20:31 DC 07/18/22 20:28 1 MG Lorazepam 1 mg ONCE ONCE IVP 07/18/22 21:00 07/18/22 21:01 DC 07/18/22 21:10 1 MG Vital Signs/I&O 07/18/22 07/18/22 07/18/22 07/18/22 19:53 20:15 20:45 21:15 Temp 36.0 Pulse 103 101 101 106 Resp 20 20 25 24 B/P (MAP) 152/121 (131) 175/95 (121) 177/95 (122) 114/68 (83) Pulse Ox 92 91 90 92 O2 Delivery Room Air Room Air Room Air Room Air 07/18/22 22:15 Pulse 104 Resp 19 B/P (MAP) 110/67 (81) Pulse Ox 94 O2 Delivery Room Air Capillary Refill : Progress Note : Progress Note 1. ALTERED MENTAL STATUS/ AGITATION: - CT HEAD: no acute findings - CXR: There is cardiomegaly with no significant pulmonary vascular congestion. There is increased lung markings throughout both lungs which may relate to atelectasis versus scarring. Subtle infiltrate in the left upper lobe cannot be completely excluded given the asymmetry compared to the right side. - EKG x2/Troponin x2: x1 is non-ischemic, awaiting second troponin and EKG - BNP: 588 - UA: no infection - Lactic Acid: normal - ASA 324mg STAT - Ativan, total of 2mg iv STAT, with resulting in pt calming down -The added agitation is likely due to patient withdrawing from the opioids after receiving Narcan. -NS IVF, patient pulled out IV tubing. -Patient is excepted for admission to observation unit, will likely need one-to-one monitoring - Pt's son info: Shay Rojas: [phone] 2. POSSIBLE OPIATE DRUG OVERDOSE, ACCIDENTAL: - UDS: Positive for oxycodone, benzos, marijuana - EMS had given Narcan and became responsive and reactive shortly thereafter. She was given a second dose of Narcan as soon as she was rolled into the ER by EMS with even better alertness. - Will admit to observation unit for monitoring. Discussed with hospitalist and accepted for admission. 3. LEFT UPPER LOBE PNEUMONIA: - CXR: Subtle infiltrate in the left upper lobe cannot be completely excluded given the asymmetry compared to the right side. - COVID test/ Rapid Flu test: negative - Cefepime 1gm iv STAT ECG Initial ECG Impression Date: Jul 18, 2022 Initial ECG Impression Time: 19:48 Initial ECG Rate: 97 Initial ECG Rhythm: Normal Sinus Initial ECG Intervals: Normal Initial ECG Impression: Nonspecific Changes Initial ECG Comparisson: No Previous ECG Available Diagnostic Imaging Diagonstic Imaging: Xray, CT Plain Films/CT/US/NM/MRI: chest, head Comments [facility], [place] NAME: LUIS ROJAS [facility] REC#: [id number] PT STATUS: REG ER : 1940 PHYSICIAN: GILBERTO BERRY MD ADMIT DATE: 07/18/22/ER FS Draft Date of Exam:07/18/22 CT HEAD WO Clinical indication: Patient with altered mental status. Exam: Axial CT scan of the brain without IV contrast with coronal and sagittal reformatted images. Auto Exposure Controls were utilized during the CT exam to meet ALARA standards for radiation dose reduction. Comparison: CT scan of the head and cervical spine without contrast dated 05/10/2019. Findings: There is no evidence of acute cerebral infarct, intracranial hemorrhage or gross mass effect. The brain parenchymal volume appears appropriate for patient's age. There is slight progression of small patchy areas of low-attenuation white matter changes involving both cerebral hemispheres, likely representing chronic small vessel ischemic disease. There is normal dunbar-white matter distinction. There is no significant midline shift or herniation. There is no evidence of hydrocephalus. The basal cisterns are unremarkable. The skull, extracranial soft tissue and orbits are unremarkable. The paranasal sinuses are unremarkable. Temporal bones show no significant abnormality. Impression: 1: There is no CT evidence of acute intracranial process. 2: There is slight progression of chronic small vessel ischemic disease. Dictated on workstation # [id number] Dict: 07/18/[id number] Trans: 07/18/[id number] PJE [id number] Interpreted by: RALEIGH CONDE MD Electronically signed by: [facility]. [place], [place] NAME: LUIS ROJAS [facility] REC#: [id number] PT STATUS: REG ER : 1940 PHYSICIAN: GILBERTO BERRY MD ADMIT DATE: 07/18/22/ER FS Draft Date of Exam:07/18/22 CHEST 1 VIEW AP/PA ONLY CLINICAL INDICATION: Patient with chest pain. EXAM: Portable chest x-ray upright view. COMPARISON: Chest x-ray dated 10/07/2021. FINDINGS: Lungs/pleura: There is mild bibasilar atelectasis versus scarring again seen. There is increased lung markings throughout both lungs with left upper lobe more so than the right which may be from chronic lung changes. There is no pneumothorax. There is no pleural effusion. Mediastinum: Unremarkable. Pulmonary vasculature: Unremarkable. Heart: Mild cardiomegaly is seen. Bones/extrathoracic soft tissue: There are degenerative spurs involving the thoracic spine. IMPRESSION: 1: There is cardiomegaly with no significant pulmonary vascular congestion. 2: There is increased lung markings throughout both lungs which may relate to atelectasis versus scarring. Subtle infiltrate in the left upper lobe cannot be completely excluded given the asymmetry compared to the right side. Dictated on workstation # [id number] Dict: 07/18/[id number] Trans: 07/18/222119 PJE [id number] Interpreted by: RALEIGH CONDE MD Electronically signed by: Departure Communication (Admissions) Time/Spoke to Admitting Phy: 22:[address] Gomez, and accepted for admission to [facility], and will order gabapentin and carvedilol for tonight, but this is not available at [place] so it will need to be given in [place]. Bridge orders placed after discussion with Dr. Gomez. Impression Primary Impression: Altered mental status Qualified Codes: R41.82 - Altered mental status, unspecified Additional Impressions: Accidental overdose Qualified Codes: T50.901A - Poisoning by unspecified drugs, medicaments and biological substances, accidental (unintentional), initial encounter Restlessness and agitation Disposition: 30 STILL A PATIENT Condition: Stable Admissions Decision to Admit Reason: Admit from ER (General) Decision to Admit/Date: Jul 18, 2022 Time/Decision to Admit Time: 21:00 GILBERTO BERRY MD Jul 18, 2022 19:44
[2022-07-18] MEDS ORDERED: ASPIRIN 81 MG CHEW (CHILDREN'S ASA) PO ONE (19:45)
[2022-07-18 19:53] LABS: BASOPHILS # (AUTO) 0.1 10^3/uL (0.0-0.1); BASOPHILS % (AUTO) 1 % (0-10); EOSINOPHILS # (AUTO) 0.2 10^3/uL (0.0-0.3); EOSINOPHILS % (AUTO) 3 % (0-10); HEMATOCRIT 33 % (35-52); HEMOGLOBIN 10.6 g/dL (11.5-16.0); LYMPHOCYTES # (AUTO) 2.6 10^3/uL (1.0-4.0); LYMPHOCYTES % (AUTO) 36 % (12-44); MEAN CORPUSCULAR HEMOGLOBIN 29 pg (25-34); MEAN CORPUSCULAR HGB CONC 32 g/dL (32-36); MEAN CORPUSCULAR VOLUME 91 fL (80-99); MEAN PLATELET VOLUME 10.1 fL (9.0-12.2); MONOCYTES # (AUTO) 0.8 10^3/uL (0.0-1.0); MONOCYTES % (AUTO) 11 % (0-12); NEUTROPHILS # (AUTO) 3.7 10^3/uL (1.8-7.8); NEUTROPHILS % (AUTO) 50 % (42-75); PLATELET COUNT 180 10^3/uL (130-400); WHITE BLOOD COUNT 7.4 10^3/uL (4.3-11.0)
[2022-07-18 20:05] LABS: PROTHROMBIN TIME PATIENT 13.7 SEC (12.2-14.7)
[2022-07-18 20:08] LABS: MAGNESIUM 1.9 MG/DL (1.6-2.4)
[2022-07-18 20:12] LABS: SODIUM 136 MMOL/L (135-145)
[2022-07-18 20:13] LABS: ALANINE AMINOTRANSFERASE 9 U/L (0-55); ALBUMIN 4.1 GM/DL (3.2-4.5); ALKALINE PHOSPHATASE 122 U/L (40-136); BILIRUBIN,TOTAL 0.4 MG/DL (0.1-1.0); BUN/CREATININE RATIO 24; CARBON DIOXIDE 22 MMOL/L (21-32); CHLORIDE 103 MMOL/L (98-107); CREATININE SERUM 1.15 MG/DL (0.60-1.30); GFR ESTIMATED 48; GLUCOSE 168 MG/DL (70-105); POTASSIUM 5.1 MMOL/L (3.6-5.0); TOTAL PROTEIN 6.9 GM/DL (6.4-8.2)
[2022-07-18] MEDS ORDERED: LORazepam INJ 2 MG/ML (ATIVAN) VIAL IVP ONE ×2 (20:30→21:00)
[2022-07-18 21:03] LABS: BILIRUBIN,URINE NEGATIVE (NEGATIVE); CLARITY,URINE CLEAR; COLOR,URINE YELLOW; GLUCOSE, URINE (UA) NEGATIVE (NEGATIVE); KETONES,URINE NEGATIVE (NEGATIVE); LEUKOCYTE ESTERASE ,URINE NEGATIVE (NEGATIVE); NITRITE,URINE NEGATIVE (NEGATIVE); PH,URINE 6.5 (5-9); PROTEIN,URINE NEGATIVE (NEGATIVE)
[2022-07-18 21:05] LABS: BACTERIA,URINE TRACE /HPF; HYALINE CASTS, URINE 0-2 /LPF; WBC,URINE 0-2 /HPF
[2022-07-18 21:13] LABS: BENZODIAZEPINES SCREEN URINE POSITIVE (NEGATIVE); CANNABINOID SCREEN, URINE POSITIVE (NEGATIVE)
[2022-07-18 21:14] LABS: AMPHETAMINE SCREEN, URINE NEGATIVE (NEGATIVE); BARBITURATE SCREEN URINE NEGATIVE (NEGATIVE); COCAINE SCREEN URINE NEGATIVE (NEGATIVE); METHADONE STAT NEGATIVE (NEGATIVE); OPIATE SCREEN URINE NEGATIVE (NEGATIVE); OXYCODONE STAT POSITIVE (NEGATIVE); PROPOXYPHENE STAT NEGATIVE (NEGATIVE); TRICYCLIC ANTIDEPRESSANTS SCRE NEGATIVE (NEGATIVE)
--- NOTE | 2022-07-18 21:20 | Diagnostic Imaging Report ---
CLINICAL INDICATION: Patient with chest pain. EXAM: Portable chest x-ray upright view. COMPARISON: Chest x-ray dated 10/07/2021. FINDINGS: Lungs/pleura: There is mild bibasilar atelectasis versus scarring again seen. There is increased lung markings throughout both lungs with left upper lobe more so than the right which may be from chronic lung changes. There is no pneumothorax. There is no pleural effusion. Mediastinum: Unremarkable. Pulmonary vasculature: Unremarkable. Heart: Mild cardiomegaly is seen. Bones/extrathoracic soft tissue: There are degenerative spurs involving the thoracic spine. IMPRESSION: 1: There is cardiomegaly with no significant pulmonary vascular congestion. 2: There is increased lung markings throughout both lungs which may relate to atelectasis versus scarring. Subtle infiltrate in the left upper lobe cannot be completely excluded given the asymmetry compared to the right side. Dictated by: Dictated on workstation # [id number]
--- NOTE | 2022-07-18 21:25 | Diagnostic Imaging Report ---
Clinical indication: Patient with altered mental status. Exam: Axial CT scan of the brain without IV contrast with coronal and sagittal reformatted images. Auto Exposure Controls were utilized during the CT exam to meet ALARA standards for radiation dose reduction. Comparison: CT scan of the head and cervical spine without contrast dated 05/10/2019. Findings: There is no evidence of acute cerebral infarct, intracranial hemorrhage or gross mass effect. The brain parenchymal volume appears appropriate for patient's age. There is slight progression of small patchy areas of low-attenuation white matter changes involving both cerebral hemispheres, likely representing chronic small vessel ischemic disease. There is normal dunbar-white matter distinction. There is no significant midline shift or herniation. There is no evidence of hydrocephalus. The basal cisterns are unremarkable. The skull, extracranial soft tissue and orbits are unremarkable. The paranasal sinuses are unremarkable. Temporal bones show no significant abnormality. Impression: 1: There is no CT evidence of acute intracranial process. 2: There is slight progression of chronic small vessel ischemic disease. Dictated by: Dictated on workstation # [id number]
[2022-07-18] MEDS ORDERED: CEFEPIME INJECTION 1,000 MG in NS (IVPB) 50 ML IV ONE (22:15)
[2022-07-18] MEDS ORDERED: GABAPENTIN 100 MG (NEURONTIN) CAP PO ONE ×2 (22:30)
[2022-07-19] VITALS (9 sets, daily range): BP systolic 82–140; BP diastolic 47–90
[2022-07-19] MEDS ORDERED: RT-ALBUTEROL SULF 2.5 MG/3 ML PRE-MIX VIAL INH PRN (01:00)
[2022-07-19] MEDS ORDERED: LORazepam INJ 2 MG/ML (ATIVAN) VIAL IV PRN (01:45)
[2022-07-19] MEDS ORDERED: CATHETER FLUSH 10 ML SYR IVP PRN (01:45)
[2022-07-19] MEDS ORDERED: RT-IPRATROPIUM (ATROVENT) 0.5MG/2.5ML AMP IH PRN (01:45)
[2022-07-19] MEDS ORDERED: ONDANSETRON 4 MG/2 ML (SDV) Z0FRAN IV PRN (01:45)
[2022-07-19] MEDS ORDERED: MELATONIN 3 MG TABLET PO PRN (01:45)
[2022-07-19] MEDS ORDERED: KETOROLAC 15 MG/ML VIAL IV PRN (01:45)
[2022-07-19] MEDS: CEFEPIME 1,000 MG/NS 50 ML IVPB IV SCH ×6 (05:22→21:01)
[2022-07-19] MEDS: CATHETER FLUSH 10 ML SYR IVP SCH ×3 (05:23→21:02)
[2022-07-19 06:19] LABS: BASOPHILS % (AUTO) 1 % (0-10); EOSINOPHILS # (AUTO) 0.1 10^3/uL (0.0-0.3); EOSINOPHILS % (AUTO) 1 % (0-10); HEMATOCRIT 36 % (35-52); HEMOGLOBIN 11.9 g/dL (11.5-16.0); LYMPHOCYTES # (AUTO) 1.7 10^3/uL (1.0-4.0); LYMPHOCYTES % (AUTO) 22 % (12-44); MEAN CORPUSCULAR HEMOGLOBIN 30 pg (25-34); MEAN CORPUSCULAR HGB CONC 33 g/dL (32-36); MEAN CORPUSCULAR VOLUME 90 fL (80-99); MEAN PLATELET VOLUME 10.4 fL (9.0-12.2); MONOCYTES # (AUTO) 0.6 10^3/uL (0.0-1.0); MONOCYTES % (AUTO) 8 % (0-12); NEUTROPHILS % (AUTO) 67 % (42-75); PLATELET COUNT 217 10^3/uL (130-400); WHITE BLOOD COUNT 7.4 10^3/uL (4.3-11.0)
[2022-07-19 06:33] LABS: CALCIUM 9.4 MG/DL (8.5-10.1); CREATININE SERUM 1.18 MG/DL (0.60-1.30); POTASSIUM 5.9 MMOL/L (3.6-5.0)
[2022-07-19] MEDS: ASPIRIN 81 MG CHEW (CHILDREN'S ASA) PO SCH ×2 (09:00→10:09)
[2022-07-19] MEDS: GABAPENTIN 300 MG (NEURONTIN) CAP PO SCH ×4 (10:09→19:32)
--- NOTE | 2022-07-19 11:02 | History & Physical-Hospitalist ---
History of Present Illness HPI/Chief Complaint 82 yr F with PMH of HTN/COPD-emphysema/DM2/CHF/hypothyroid/rheumatoid arthritis/ex smoker/cardiomyopathy/fibromyalgia/CAD/lumbar radiculopathy, is brought in by EMS with complaints of chest pain and altered mental status. Symptoms began approximately around 6 PM, which is 1 hour prior to EMS being called to home. EMS stated the pt slumped over and wasn't really responding to them once they got her in the ambulance, and she was given Narcan and became responsive and reactive shortly thereafter. She was given a second dose of Narcan as soon as she was rolled into the ER by EMS. Patient's son gives a history, and states that his mother was fine in the morning and he had just taken her shopping in town. Son reports that she took a nap and woke up with chest pain and confusion, and agitation. Patient's son also reports that she takes CBD oil with chocolate to help with the pain from fibromyalgia, and she h ad taken that today as well. Patient's son also reports that his mother is not suicidal and this behavior is unusual for her. EMS has brought patient's medication bucket in, and she has 3 large bottles of Percocet 7.5 mg. There is possibility that patient may have taken too many of the Percocet, and forgetting that she had taken it before. In the ER patient denies chest pain, palpitations, shortness of breath, abdominal pain, nausea and vomiting. Patient was sleeping upon my arrival but aroused easily. She immediately complained of neck pain posteriorly radiating into the occiput. This is nothing new for her. She could not tell me what happened yesterday but when we discussed inadvertent extra oxycodone she admitted that this very well may have been the case. She is depressed in appearance admitting that her chronic pain predominantly the neck at this point was giving her the most trouble. She does carry a history of fibromyalgia. Her son reports that she had post COVID IA u nderwent cardiac catheterization but was managed medically with no stent placement she has been on aspirin and Plavix for the past 6 months secondary to this with no further episodes of coronary syndrome. She denies chest pain or shortness of breath at rest. Date Seen 07/19/22 Time Seen by a Provider: 07:30 Attending Physician Javier Valero MD PCP Admitting Physician: Alex Hung MD Attending Physician: Alex Hung MD Referring Physician Date of Admission Jul 19, 2022 at 00:15 Home Medications & Allergies Home Medications Reviewed patient Home Medication Reconciliation performed by pharmacy medication reconciliations biomedical technician and/or nursing. Patients Allergies have been reviewed. Allergies Allergies Coded Allergies methotrexate (Verified Allergy, Unknown, 11/13/20) Past Cnyjezr-Ajqvsc-Elkbjj Hx Patient Social History Tobacco Use?: Yes Tobacco type used: Cigarettes Smoking Status: Former Smoker Smokeless Tobacco Frequency: Never a User Use of E-Cig and/or Vaping Bola: Never a User Substance use?: No Alcohol Use?: No Pt feels they are or have been: Unable to obtain Immunizations Up To Date Date of Influenza Vaccine: Feb 28, 2022 First/Initial COVID19 Vaccinat: 08/01/2020 Second COVID19 Vaccination Tony: 09/05/2020 Tetanus Booster (TDap): Unknown Seasonal Allergies Seasonal Allergies: No Current Status status: No status: No Advance Directives: Unable to obtain Communicates: Verbally Primary Language: Telugu Preferred Spoken Language: Telugu Is interpretation needed?: No Past Medical History Surgeries: Orthopedic Asthma, COPD Currently Using CPAP: No Currently Using BIPAP: No Coronary Artery Disease, Heart Attack, Hypertension Hiatal Hernia Fibromyalgia, Rheumatoid Arthritis, Back Injury Diabetes, Non-Insulin dep Blood Disorders: No Adverse Reaction/Blood Tranf: No PMHx: HTN NIDDM HLD GERD Chronic anemia hypothyroidism SurgHx: Cholecystectomy Hysterectomy Family Medical History No Pertinent Family Hx Review of Systems Constitutional: see HPI Physical Exam Physical Exam Vital Signs Vital Signs - First Documented 07/18/22 19:53 Temp 36.0 Pulse 103 Resp 20 B/P (MAP) 152/121 (131) Pulse Ox 92 O2 Delivery Room Air Capillary Refill : Less Than 3 Seconds Height, Weight, BMI Height: 5'0" Weight: 125lbs. oz. 56.655455cf; 25.18 BMI Method:Stated General Appearance: Mild Distress (Depressed in appearance) HEENT: PERRL/EOMI Respiratory: Chest Non Tender, Lungs Clear, Normal Breath Sounds, No Accessory Muscle Use, No Respiratory Distress Cardiovascular: Regular Rate, Rhythm, No Edema, No Gallop, No JVD, No Murmur, Normal Peripheral Pulses Gastrointestinal: Normal Bowel Sounds, No Organomegaly, No Pulsatile Mass, Non Tender, Soft Results Results/Procedures Labs Laboratory Tests 07/18/22 19:49 07/19/22 05:16 Patient resulted labs reviewed. Assessment/Plan Admission Diagnosis 1. Apparently inadvertent narcotic overdose with secondary altered mental status. 2. Fibromyalgia we will continue gabapentin. Considering reports of insomnia at baseline and neck pain and previous utilization of amitriptyline which she does not recall having any problems with we will reinitiate at low-dose 10 mg at at bedtime with a goal of titrating higher especially in light of probable reactive depression to chronic pain. 3. Cervicalgia likely cervical arthritis as she is 6-month out from likely type II [place] we will discontinue aspirin continue Plavix and pantoprazole with the addition of meloxicam. They were warned about increased ulceration risk with anti-inflammatory medications and Plavix however she has no reported history of peptic ulcer disease and should be at lower risk considering PPI prop hylaxis/pantoprazole. Likely a.m. discharge. 4. History of coronary artery disease see above. 5. Family reported history of COPD secondary to past smoking. No evidence to suggest pneumonia. Admission Status: Observation ALEX HUNG MD Jul 19, 2022 11:02
[2022-07-19] MEDS ORDERED: NS IV 1000 ML 1,000 ML IV ONE (11:45)
[2022-07-19] MEDS: MELOXICAM 7.5 MG (MOBIC) TABLET PO SCH (11:57)
[2022-07-19 15:07] LABS: POTASSIUM 5.2 MMOL/L (3.6-5.0)
[2022-07-19 15:08] LABS: CALCIUM 8.5 MG/DL (8.5-10.1)
[2022-07-19 15:12] LABS: CREATININE SERUM 1.34 MG/DL (0.60-1.30)
[2022-07-19] MEDS: oxyCODONE/APAP 7.5-325 MG (PERCOCET 7.5) TABLET PO PRN ×2 (16:01→21:02)
[2022-07-19] MEDS ORDERED: AMITRIPTYLINE 10 MG (ELAVIL) TAB PO SCH (21:00)
[2022-07-20 03:49] VITALS: BP 95/50
[2022-07-20] MEDS: CATHETER FLUSH 10 ML SYR IVP SCH (05:35)
[2022-07-20] MEDS: CEFEPIME 1,000 MG/NS 50 ML IVPB IV SCH ×2 (05:35)
[2022-07-20 07:39] VITALS: BP 117/59
[2022-07-20] MEDS: GABAPENTIN 300 MG (NEURONTIN) CAP PO SCH (08:08)
[2022-07-20] MEDS: MELOXICAM 7.5 MG (MOBIC) TABLET PO SCH (08:09)
[2022-07-20] MEDS: oxyCODONE/APAP 7.5-325 MG (PERCOCET 7.5) TABLET PO PRN (08:10)
[2022-07-20 08:25] LABS: BASOPHILS # (AUTO) 0.1 10^3/uL (0.0-0.1); BASOPHILS % (AUTO) 1 % (0-10); EOSINOPHILS # (AUTO) 0.2 10^3/uL (0.0-0.3); EOSINOPHILS % (AUTO) 4 % (0-10); HEMATOCRIT 33 % (35-52); HEMOGLOBIN 10.6 g/dL (11.5-16.0); LYMPHOCYTES # (AUTO) 2.2 10^3/uL (1.0-4.0); LYMPHOCYTES % (AUTO) 36 % (12-44); MEAN CORPUSCULAR HEMOGLOBIN 30 pg (25-34); MEAN CORPUSCULAR HGB CONC 32 g/dL (32-36); MEAN CORPUSCULAR VOLUME 93 fL (80-99); MONOCYTES # (AUTO) 0.7 10^3/uL (0.0-1.0); MONOCYTES % (AUTO) 11 % (0-12); NEUTROPHILS # (AUTO) 2.8 10^3/uL (1.8-7.8); NEUTROPHILS % (AUTO) 48 % (42-75); PLATELET COUNT 170 10^3/uL (130-400); WHITE BLOOD COUNT 5.9 10^3/uL (4.3-11.0)
[2022-07-20 08:52] LABS: ALBUMIN 3.5 GM/DL (3.2-4.5); BILIRUBIN,TOTAL 0.4 MG/DL (0.1-1.0); CALCIUM 8.6 MG/DL (8.5-10.1); CREATININE SERUM 1.16 MG/DL (0.60-1.30); POTASSIUM 4.8 MMOL/L (3.6-5.0); TOTAL PROTEIN 6.3 GM/DL (6.4-8.2)
[2022-07-20 11:15] VITALS: BP 120/63
--- NOTE | 2022-07-20 11:25 | Physical Therapy Evaluation ---
PT Evaluation-General Medical Diagnosis Admission Date Jul 19, 2022 at 00:15 Medical Diagnosis: opiate OD/pneumonia Onset Date: Jul 19, 2022 Therapy Diagnosis Therapy Diagnosis: debility Height/Weight Height (Feet): 5 Height (Inches): 0 Weight (Pounds): 125 Precautions Precautions/Isolations: Standard Precautions Referral Physician: Vega Reason for Referral: Evaluation/Treatment Medical History Pertinent Medical History: CAD, COPD, DM, Heart Failure, HTN, Hypothroidism, Rheumatoid Arthritis Current History EMS secondary to AMS and CP Reviewed History: Yes Social History Home: Single Level Current Living Status: Children Entry Into Home: Stairs Without Railing PT Steps Into Home: 1 Prior Prior Level of Function SCALE: Activities may be completed with or without assistive devices. 4-Pwjfktxnyq-hwgwqps completes the activity by him/herself with no assistance from a helper. 5-Set-up or Clean-up Assistance-helper sets up or cleans up; patient completes activity. [place] assists only prior to or following the activity. 4-Supervision or Touching Assistance-helper provides verbal cues and/or touching/steadying and/or contact guard assistance as patient completes activity. Assistance may be provided throughout the activity or intermittently. 3-Partial/Moderate Assistance-helper does LESS THAN HALF the effort. [place] lifts, holds or supports trunk or limbs, but provides less than half the effort. 2-Substantial/Maximal Assistance-helper does MORE THAN HALF the effort. [place] lifts or holds trunk or limbs and provides more than half the effort. 9-Hujulhnbg-jusiup does ALL the effort. Patient does none of the effort to complete the activity. Or, the assistance of 2 or more helpers is required for the patient to complete the activity. If activity was not attempted, code reason: 7-Patient Refused. 9-Not Applicable-not attempted and the patient did not perform the activity before the current illness, exacerbation or injury. 10-Not Attempted due to Environmental Limitations-(lack of equipment, weather restraints, etc.). 88-Not Attempted due to Medical Conditions or Safety Concerns. Bed Mobility: 6 Transfers (B,C,W/C): 6 Gait: 6 Stairs: 6 Indoor Mobility (Ambulation): Independent Stairs: Independent Prior Devices Use: None PT Evaluation-Current Subjective Patient agrees to PT. Objective Patient Orientation: Normal For Age ROM/Strength ROM Lower Extremities bilateral LE WFL Strength Lower Extremities 4/5 grossly bilateral LE all planes Integumentary/Posture Bowel Incontinence: No Bladder Incontinence: No Posture WFL Neuromuscular (Tone, Coordination, Reflexes) grossly intact Sensory Vision: Functional Hearing: Functional Transfers Sit to Lying (QC): 6 Lying to Sitting/Side of Bed(Q: 6 Sit to Stand (QC): 6 Gait Mode of Locomotion: Walk Anticipated Mode of Locomotion: Walk Walk 10 feet (QC): 6 Walk 50 ft with 2 Turns(QC): 6 Walk 150 ft (QC): 6 Distance: >400' Gait Assistive Device: None Comments/Gait Description safe and functional with no deviation Balance Sitting Static: Normal Sitting Dynamic: Normal Standing Static: Normal Standing Dynamic: Normal Assessment/Needs Patient is currently at independent [facility] with all gross motor skills safely and does not require skilled PT intervention at this time. Patient to dismiss to home on this date per patient. Rehab Potential: Fair PT Plan Treatment/Plan Treatment Plan: Discontinue PT, goals met Treatment Duration: Jul 20, 2022 Frequency: 1 time per week Estimated Hrs Per Day: .25 hour per day Patient and/or Family Agrees t: Yes Discharge Recommendations Therapy Discharge Recommendati: Home & Family Time Time In: 1100 Time Out: 1112 DATE: Jul 20, 2022 Total Billed Treatment Time: 12 Total Billed Treatment 1 visit [facility] 12 min SUSANA ALMONTE PT Jul 20, 2022 11:25
[2022-07-20] MEDS ORDERED: CEFD300C3 PO (11:27)
--- NOTE | 2022-07-20 11:27 | Discharge Summary ---
Discharge Summary Hospital Course Was the Problem List Reviewed?: Yes Problems/Dx: (1) Pneumonia (2) Altered mental status Status: Acute Qualifiers: Qualified Codes: R41.82 - Altered mental status, unspecified (3) Accidental overdose Status: Acute Qualifiers: Qualified Codes: T50.901A - Poisoning by unspecified drugs, medicaments and biological substances, accidental (unintentional), initial encounter (4) Opiate overdose Hospital Course Date of Admission: Jul 19, 2022 at 00:15 Admission Diagnosis : Family Physician/Provider: Javier Valero MD Date of Discharge: 07/20/22 Discharge Diagnosis: [ ] Hospital Course: Uneventful course after she was found to have AMS and resp failure with PNA and suspicion of accidental narcotic OD. Patient received supportive care in meantime and ultimately regained function and was deemed stable for DC. I recommended close f/u with Dr Valero regarding minimizing narcotics. Carmen Taylor is an 82 yo F with PMH of HTN, COPD-emphysema, DM2, CHF, hypothyroid, rheumatoid arthritis, cardiomyopathy, fibromyalgia, CAD, lumbar radiculopathy, and former tobacco abuse. She arrived to [place] ED on 07/18/22. Per ED report: "Patient brought in by EMS with complaints of chest pain and altered mental status. Symptoms began approximately around 6 PM, which is 1 hour prior to EMS being called to home. EMS stated the pt slumped over and wasn't really responding to them once they got her in the ambulance, and she was given Narcan and became responsive and reactive shortly thereafter. She was given a second dose of Narcan as soon as she was rolled into the ER by EMS. Patient's son gives a history, and states that his mother was fine in the morning and he had just taken her shopping in town. Son reports that she took a nap and woke up with chest pain and confusion, and agitation. Patient's son also reports that she takes CBD oil with chocolate to help with the pain from fibromyalgia, and she had taken that today as well. Patient's son also reports that his mother is not suicidal and this behavior is unusual for her. EMS has brought patient's medication bucket in, and she has 3 large bottles of Percocet 7.5 mg. There is possibility that patient may have taken too many of the Percocet, and forgetting that she had taken it before. In the ER patient denies chest pain, palpitations, shortness of breath, abdominal pain, nausea and vomiting." UDS was positive for oxycodone, benzodiazepines, and cannabinoids. CT Head showed no acute findings. CXR found cardiomegaly, increased lung markings which may relate to atelectasis versus scarring, and subtle infiltrate in left upper lobe suspicious for pneumonia. COVID/Flu test negative. Cefepime started in ED. BNP was elevated. Lactic acid was normal. Pt was agitated after receiving Narcan, likely due to opioid withdrawal. Today the patient is laying in bed and reports she is feeling better. States she has chronic back pain and cervical spine arthritis. She does not see othopedics, but states she sees pain management in [place] infrequently. She is ambulating fine. Sometimes she uses a cane or walker. She is eating and toileting independently. Last bowel movement was yesterday. She has been using her incentive spirometer. PCP is ASUNCION Peña Labs and Pending Lab Test: Laboratory Tests 07/19/22 14:36: Sodium Level 139, Potassium Level 5.2H, Chloride Level 110H, Carbon Dioxide Level 20L, Anion Gap 9, Blood Urea Nitrogen 27H, Creatinine 1.34H, Estimat Glomerular Filtration Rate 40, BUN/Creatinine Ratio 20, Glucose Level 105, Calcium Level 8.5 07/20/22 08:05: Sodium Level 139, Potassium Level 4.8, Chloride Level 112H, Carbon Dioxide Level 18L, Anion Gap 9, Blood Urea Nitrogen 27H, Creatinine 1.16, Estimat Glomerular Filtration Rate 48, BUN/Creatinine Ratio 23, Glucose Level 113H, Calcium Level 8.6, White Blood Count 5.9, Red Blood Count 3.58L, Hemoglobin 10.6L, Hematocrit 33L, Mean Corpuscular Volume 93, Mean Corpuscular Hemoglobin 30, Mean Corpuscular Hemoglobin Concent 32, Red Cell Distribution Width 14.4, Platelet Count 170, Mean Platelet Volume 10.0, Immature Granulocyte % (Auto) 0, Neutrophils (%) (Auto) 48, Lymphocytes (%) (Auto) 36, Monocytes (%) (Auto) 11, Eosinophils (%) (Auto) 4, Basophils (%) (Auto) 1, Neutrophils # (Auto) 2.8, Lymphocytes # (Auto) 2.2, Monocytes # (Auto) 0.7, Eosinophils # (Auto) 0.2, Basophils # (Auto) 0.1, Immature Granulocyte # (Auto) 0.0, Corrected Calcium 9.0, Total Bilirubin 0.4, Aspartate Amino Transf (AST/SGOT) 23, Alanine Aminotransferase (ALT/SGPT) 10, Alkaline Phosphatase 91, Total Protein 6.3L, Albumin 3.5 Home Meds Active Proair Hfa (Albuterol Sulfate) 90 Mcg Hfa.aer.ad 2 Puff IH Q4H PRN Dexamethasone 6 Mg Tablet 6 Mg PO DAILY@0700 8 Days Clopidogrel (Clopidogrel Bisulfate) 75 Mg Tablet 75 Mg PO DAILY Reported Pantoprazole Sodium 40 Mg Tablet.dr 40 Mg PO HS Vitamin C (Ascorbate Calcium) 500 Mg Tablet 500 Mg PO DAILY Multivitamin 1 Each Tablet 1 Each PO DAILY Metformin HCl 500 Mg Tablet 500 Mg PO BID Montelukast Sodium 10 Mg Tablet 10 Mg PO HS ALPRAZolam 0.25 Mg Tablet 0.25 Mg PO Q6H PRN Carvedilol 3.125 Mg Tablet 3.125 Mg PO BID Sucralfate 1 Gram Tablet 1 Gm PO ACHS PRN Vitamin D3 (Cholecalciferol (Vitamin D3)) 25 Mcg Tablet 25 Mcg PO DAILY Benadryl (Diphenhydramine HCl) 25 Mg Capsule 50 Mg PO HS TAKES 2 (25MG) CAPS Levothyroxine Sodium 88 Mcg Tablet 88 Mcg PO DAILY Neurontin (Gabapentin) 300 Mg Capsule 300 Mg PO QID Folic Acid 1 Mg Tablet 1 Mg PO DAILY Vitamin B Complex 1 Each Tablet 1 Each PO DAILY Aspirin EC (Aspirin) 81 Mg Tablet.dr 81 Mg PO HS Atorvastatin Calcium 40 Mg Tablet 40 Mg PO HS Losartan Potassium 25 Mg Tablet 25 Mg PO DAILY Oxycodon-Acetaminophen 7.5-325 (Oxycodone HCl/Acetaminophen) 1 Each Tablet 1 Tab PO Q4H PRN Assessment/Pt Instructions PCP 1 week Discharge Planning: <30 minutes discharge planning Discharge Physical Examination Vital Signs Vital Signs Date Time Temp Pulse Resp B/P (MAP) Pulse Ox O2 Delivery O2 Flow Rate FiO2 07/20/22 11:15 36.4 65 18 120/63 (82) 96 Room Air 07/20/22 08:15 0.00 General Appearance: No Apparent Distress, WD/WN, Chronically ill Respiratory: Lungs Clear, Normal Breath Sounds Cardiovascular: Regular Rate, Rhythm Allergies: Coded Allergies: methotrexate (Verified Allergy, Unknown, 11/13/20) Discharge Summary Date of Admission Jul 19, 2022 at 00:15 Date of Discharge Discharge Date: Jul 20, 2022 Admission Diagnosis 1. Apparently inadvertent narcotic overdose with secondary altered mental status. 2. Fibromyalgia we will continue gabapentin. Considering reports of insomnia at baseline and neck pain and previous utilization of amitriptyline which she does not recall having any problems with we will reinitiate at low-dose 10 mg at at bedtime with a goal of titrating higher especially in light of probable reactive depression to chronic pain. 3. Cervicalgia likely cervical arthritis as she is 6-month out from likely type II [place] we will discontinue aspirin continue Plavix and pantoprazole with the addition of meloxicam. They were warned about increased ulceration risk with anti-inflammatory medications and Plavix however she has no reported history of peptic ulcer disease and should be at lower risk considering PPI prophy laxis/pantoprazole. Likely a.m. discharge. 4. History of coronary artery disease see above. 5. Family reported history of COPD secondary to past smoking. No evidence to suggest pneumonia. DASHA PRIEST DO Jul 20, 2022 11:27
[2022-07-20 11:55] VITALS: BP 120/63
--- NOTE | 2022-07-20 14:10 | Progress Note ---
ASUNCION WANG 07/20/22 1410: Progress Note Carmen Taylor is an 82 yo F with PMH of HTN, COPD-emphysema, DM2, CHF, hypothyroid, rheumatoid arthritis, cardiomyopathy, fibromyalgia, CAD, lumbar radiculopathy, and former tobacco abuse. She arrived to [place] ED on 07/18/22. Per ED report: "Patient brought in by EMS with complaints of chest pain and altered mental status. Symptoms began approximately around 6 PM, which is 1 hour prior to EMS being called to home. EMS stated the pt slumped over and wasn't really responding to them once they got her in the ambulance, and she was given Narcan and became responsive and reactive shortly thereafter. She was given a second dose of Narcan as soon as she was rolled into the ER by EMS. Patient's son gives a history, and states that his mother was fine in the morning and he had just taken her shopping in town. Son reports that she took a nap and woke up with chest pain and confusion, and agitation. Patient's son also reports that she takes CBD oil with chocolate to help with the pain from fibromyalgia, and she had taken that today as well. Patient's son also reports that his mother is not suicidal and this behavior is unusual for her. EMS has brought patient's medication bucket in, and she has 3 large bottles of Percocet 7.5 mg. There is possibility that patient may have taken too many of the Percocet, and forgetting that she had taken it before. In the ER patient denies chest pain, palpitations, shortness of breath, abdominal pain, nausea and vomiting." UDS was positive for oxycodone, benzodiazepines, and cannabinoids. CT Head showed no acute findings. CXR found cardiomegaly, increased lung markings which may relate to atelectasis versus scarring, and subtle infiltrate in left upper lobe suspicious for pneumonia. COVID/Flu test negative. Cefepime started in ED. BNP was elevated. Lactic acid was normal. Pt was agitated after receiving Narcan, likely due to opioid withdrawal. Today the patient is laying in bed and reports she is feeling better. States she has chronic back pain and cervical spine arthritis. She does not see othopedics, but states she sees pain management in [place] infrequently. She is ambulating fine. Sometimes she uses a cane or walker. She is eating and toileting independently. Last bowel movement was yesterday. She has been using her incentive spirometer. PCP is YANNI Jon DO 07/21/22 0526: Supervisory-Addendum Brief Verification & Attestation Participated in pt care: history, MDM, physical Personally performed: exam, history, MDM, supervision of care Care discussed with: Medical Student Procedures: n/a Results interpretation: Verified all documentation Verification and Attestation of Medical Student E/M Service A medical student performed and documented this service in my presence. I reviewed and verified all information documented by the medical student and made modifications to such information, when appropriate. I personally performed the physical exam and medical decision making. Yanni Priest, Jul 21, 2022,05:26 ASUNCION WANG Jul 20, 2022 14:10 YANNI PRIEST DO Jul 21, 2022 05:26
[2022-07-20] MEDS ORDERED: CEFEPIME 1,000 MG/NS 50 ML IVPB IV SCH ×2 (18:00)
== END 2022-07-20 12:10 | disposition home or self-care (01) | DRG 917 ==
LOC: EDUNIT# 19:42 → ER FS 19:45 → 4TH 07-19 00:15
PROVIDERS: ADMIT Internal Medicine; ATTEND Internal Medicine
DX: T40.601A Poisoning by unspecified narcotics, accidental (unintentional), initial encounter (principal); I21.A1 Myocardial infarction type 2; J18.9 Pneumonia, unspecified organism; J96.90 Respiratory failure, unspecified, unspecified whether with hypoxia or hypercapnia; I42.9 Cardiomyopathy, unspecified; M79.7 Fibromyalgia; G47.00 Insomnia, unspecified; M47.9 Spondylosis, unspecified; I25.10 Atherosclerotic heart disease of native coronary artery without angina pectoris; Z87.891 Personal history of nicotine dependence; I11.0 Hypertensive heart disease with heart failure; J43.9 Emphysema, unspecified; E11.9 Type 2 diabetes mellitus without complications; I50.9 Heart failure, unspecified; E03.9 Hypothyroidism, unspecified; M06.9 Rheumatoid arthritis, unspecified; M54.16 Radiculopathy, lumbar region; Z79.82 Long term (current) use of aspirin; Z79.899 Other long term (current) drug therapy; Z20.822 Contact with and (suspected) exposure to COVID-19; G25.81 Restless legs syndrome; R45.1 Restlessness and agitation
CPT/HCPCS: 36415; 70450; 71045; 80048; 80053; 80306; 80320; 81000; 82140; 83605; 83735; 83880; 84484; 85025; 85379; 85610; 85730; 87636; 93041; 94010; 94760; G0378

== ENCOUNTER 2022-08-20 13:44 | Emergency (ER) | payer MEDICARE, OTHER ==
[~2022-08-20] VITALS: Ht 152 cm; Wt 57.0 kg
[2022-08-20 13:58] VITALS: BP 157/76
--- NOTE | 2022-08-20 14:02 | ED Cough/URI ---
General Chief Complaint: Cough/Cold/Flu Symptoms Stated Complaint: COUGH History of Present Illness Date Seen by Provider: Aug 20, 2022 Time Seen by Provider: 13:59 Initial Comments 82-year-old female presents with chest congestion, some tightness been going on for couple weeks. She got a cough. Patient went to walk-in clinic where they did an x-ray and were concerned about a pneumonia. She also had a urinary concerned about. Patient was sent over here for further evaluation. Upon arrival patient is here just because she was told to come in. No review reports no fevers, chills. Patient denies any urinary symptoms. No nausea or vomiting she was also requesting a nebulizer refill according to notes from walk-in clinic. Allergies and Home Medications Allergies Coded Allergies: methotrexate (Verified Allergy, Unknown, 11/13/20) Patient Home Medication List Home Medication List Reviewed: Yes ALPRAZolam (ALPRAZolam) 0.25 Mg Tablet, 0.25 MG PO Q6H PRN for ANXIETY, (Reported) Entered as Reported by: MICH KELLEY on 11/17/21 1519 Albuterol Sulfate (Proair Hfa) 90 Mcg Hfa.aer.ad, 2 PUFF IH Q4H PRN for SHORTNESS OF BREATH Prescribed by: MARII WASHINGTON on 11/20/21 1146 Ascorbate Calcium (Vitamin C) 500 Mg Tablet, 500 MG PO DAILY, (Reported) Entered as Reported by: MICH KELLEY on 11/17/21 1519 Aspirin (Aspirin EC) 81 Mg Tablet.dr, 81 MG PO HS, (Reported) Entered as Reported by: MICH KELLEY on 05/10/19 1530 Atorvastatin Calcium (Atorvastatin Calcium) 40 Mg Tablet, 40 MG PO HS, (Reported) Entered as Reported by: MICH KELLEY on 05/10/19 1530 Carvedilol (Carvedilol) 3.125 Mg Tablet, 3.125 MG PO BID, (Reported) Entered as Reported by: MICH KELLEY on 11/17/21 1519 Cefdinir (Cefdinir) 300 Mg Capsule, 300 MG PO BID Prescribed by: DASHA PRIEST on 07/20/22 1127 Cholecalciferol (Vitamin D3) (Vitamin D3) 25 Mcg Tablet, 25 MCG PO DAILY, (Reported) Entered as Reported by: MICH KELLEY on 11/14/20 1123 Clopidogrel Bisulfate (Clopidogrel) 75 Mg Tablet, 75 MG PO DAILY Prescribed by: MARII WASHINGTON on 11/20/21 1146 Dexamethasone (Dexamethasone) 6 Mg Tablet, 6 MG PO DAILY@0700 Prescribed by: MARII WASHINGTON on 11/20/21 1146 Diphenhydramine HCl (Benadryl) 25 Mg Capsule, 50 MG PO HS, (Reported) Entered as Reported by: MICH KELLEY on 11/14/20 1116 Doxycycline Hyclate (Doxycycline Hyclate) 100 Mg Tablet, 100 MG PO BID Prescribed by: NARGIS CONRAD on 08/20/22 1512 Folic Acid (Folic Acid) 1 Mg Tablet, 1 MG PO DAILY, (Reported) Entered as Reported by: MICH KELLEY on 11/14/20 1116 Gabapentin (Neurontin) 300 Mg Capsule, 300 MG PO QID, (Reported) Entered as Reported by: MICH KELLEY on 11/14/20 111 Levothyroxine Sodium (Levothyroxine Sodium) 88 Mcg Tablet, 88 MCG PO DAILY, (Reported) Entered as Reported by: MICH KELLEY on 11/14/20 111 Losartan Potassium (Losartan Potassium) 25 Mg Tablet, 25 MG PO DAILY, (Reported) Entered as Reported by: MICH KELLEY on 05/10/19 1530 Metformin HCl (Metformin HCl) 500 Mg Tablet, 500 MG PO BID, (Reported) Entered as Reported by: MICH KELLEY on 11/17/21 151 Montelukast Sodium (Montelukast Sodium) 10 Mg Tablet, 10 MG PO HS, (Reported) Entered as Reported by: MICH KELLEY on 11/17/21 151 Multivitamin (Multivitamin) 1 Each Tablet, 1 EACH PO DAILY, (Reported) Entered as Reported by: MICH KELLEY on 11/17/21 151 Oxycodone HCl/Acetaminophen (Oxycodon-Acetaminophen 7.5-325) 1 Each Tablet, 1 TAB PO Q4H PRN for PAIN-MODERATE (5-7), (Reported) Entered as Reported by: MICH KELLEY on 05/10/19 1530 Pantoprazole Sodium (Pantoprazole Sodium) 40 Mg Tablet.dr, 40 MG PO HS, (Reported) Entered as Reported by: MICH KELLEY on 11/17/21 1519 Prednisone (Prednisone) 20 Mg Tab, 40 MG PO DAILY Prescribed by: NARGIS CONRAD on 08/20/22 1512 Sucralfate (Sucralfate) 1 Gram Tablet, 1 GM PO ACHS PRN for ULCER FLARE, (Reported) Entered as Reported by: MICH KELLEY on 11/17/21 151 Vitamin B Complex (Vitamin B Complex) 1 Each Tablet, 1 EACH PO DAILY, (Reported) Entered as Reported by: MICH KELLEY on 11/14/20 1116 Review of Systems Review of Systems Constitutional: no symptoms reported EENTM: no symptoms reported, nose congestion Respiratory: cough; No short of breath Cardiovascular: No chest pain, No palpitations Gastrointestinal: No abdominal pain, No nausea, No vomiting Genitourinary: no symptoms reported Musculoskeletal: no symptoms reported Skin: no symptoms reported Psychiatric/Neurological: No Symptoms Reported Past [id number] Hx Immunizations Up To Date First/Initial COVID19 Vaccinat: 08/01/2020 Second COVID19 Vaccination Tony: 09/05/2020 Seasonal Allergies Seasonal Allergies: No Past Medical History Surgery/Hospitalization HX: SPINAL FUSION 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, history CHF) Coronary Artery Disease, Heart Attack, Hypertension Neurological: No Reproductive Disorders: No Genitourinary: No Gastrointestinal: Yes Hiatal Hernia Musculoskeletal: Yes Fibromyalgia, Rheumatoid Arthritis, Back Injury Endocrine: Yes (states she is no longer diabetic) Diabetes, Non-Insulin dep HEENT: No Cancer: No Psychosocial: No Integumentary: No Blood Disorders: No Adverse Reaction/Blood Tranf: No Family Medical History No Pertinent Family Hx Physical Exam Vital Signs - First Documented 08/20/22 13:58 Pulse 66 Resp 18 B/P (MAP) 157/76 (103) Pulse Ox 98 Capillary Refill : Height: 5'0" Weight: 125lbs. oz. [id number]; 25.18 BMI Method:Stated General Appearance: WD/WN, no apparent distress HEENT: PERRL/EOMI Neck: full range of motion Respiratory: lungs clear, normal breath sounds, no respiratory distress Cardiovascular: normal peripheral pulses, regular rate, rhythm Gastrointestinal: non tender, soft Neurologic/Psychiatric: alert, normal mood/affect, oriented x 3 Skin: normal color, warm/dry Progress/Results/Core Measures Suspected Sepsis SIRS Temperature: Pulse: Respiratory Rate: Laboratory Tests 08/20/22 14:10: White Blood Count 7.6 Blood Pressure / Mean: Laboratory Tests 08/20/22 14:10: Creatinine 1.30, Platelet Count 412H, Total Bilirubin 0.4 Results/Orders Lab Results Laboratory Tests Test 08/20/22 14:10 Range/Units White Blood Count 7.6 4.3-11.0 10^3/uL Red Blood Count 3.98 3.80-5.11 10^6/uL Hemoglobin 11.6 11.5-16.0 g/dL Hematocrit 36 35-52 % Mean Corpuscular Volume 90 80-99 fL Mean Corpuscular Hemoglobin 29 25-34 pg Mean Corpuscular Hemoglobin Concent 32 32-36 g/dL Red Cell Distribution Width 13.4 10.0-14.5 % Platelet Count 412 H 130-400 10^3/uL Mean Platelet Volume 8.8 L 9.0-12.2 fL Immature Granulocyte % (Auto) 2 % Neutrophils (%) (Auto) 49 42-75 % Lymphocytes (%) (Auto) 35 12-44 % Monocytes (%) (Auto) 9 0-12 % Eosinophils (%) (Auto) 4 0-10 % Basophils (%) (Auto) 1 0-10 % Neutrophils # (Auto) 3.7 1.8-7.8 10^3/uL Lymphocytes # (Auto) 2.7 1.0-4.0 10^3/uL Monocytes # (Auto) 0.7 0.0-1.0 10^3/uL Eosinophils # (Auto) 0.3 0.0-0.3 10^3/uL Basophils # (Auto) 0.1 0.0-0.1 10^3/uL Immature Granulocyte # (Auto) 0.2 H 0.0-0.1 10^3/uL Sodium Level 137 135-145 MMOL/L Potassium Level 4.8 3.6-5.0 MMOL/L Chloride Level 99 98-107 MMOL/L Carbon Dioxide Level 24 21-32 MMOL/L Anion Gap 14 5-14 MMOL/L Blood Urea Nitrogen 19 H 7-18 MG/DL Creatinine 1.30 0.60-1.30 MG/DL Estimat Glomerular Filtration Rate 42 BUN/Creatinine Ratio 15 Glucose Level 113 H 70-105 MG/DL Calcium Level 10.0 8.5-10.1 MG/DL Corrected Calcium 9.7 8.5-10.1 MG/DL Magnesium Level 2.2 1.6-2.4 MG/DL Total Bilirubin 0.4 0.1-1.0 MG/DL Aspartate Amino Transf (AST/SGOT) 19 5-34 U/L Alanine Aminotransferase (ALT/SGPT) 6 0-55 U/L Alkaline Phosphatase 138 H 40-136 U/L C-Reactive Protein 1.83 H <0.50 MG/DL Total Protein 8.1 6.4-8.2 GM/DL Albumin 4.4 3.2-4.5 GM/DL Influenza Type A (RT-PCR) Not Detected Not Detecte Influenza Type B (RT-PCR) Not Detected Not Detecte SARS-CoV-2 RNA (RT-PCR) Not Detected Not Detecte My Orders Orders - NARGIS CONRAD DO Cbc With Automated Diff (08/20/22 13:53) Comprehensive Metabolic Panel (08/20/22 13:53) Magnesium (08/20/22 13:53) Crp Fs (08/20/22 13:53) Chest Pa/Lat (2 View) (08/20/22 13:53) Influenza A And B By Pcr (08/20/22 13:53) Covid 19 Inhouse Test (08/20/22 13:53) Vital Signs/I&O 08/20/22 13:58 Pulse 66 Resp 18 B/P (MAP) 157/76 (103) Pulse Ox 98 Capillary Refill : Progress Note : Progress Note Patient's diagnostic studies were ordered reviewed and interpreted by me. Patient had no significant findings on her labs that were concerning. Patient's x-ray was ordered, reviewed with nursing initial interpretation by me with final interpretation per radiology report. Patient notes from the walk-in clinic were reviewed along with the EKG that showed no acute findings. I did discuss with the practitioner at walk-in clinic prior to arrival. Patient does have an underlying COPD history. She does need an inhaler that should be already prescribed. Will prescribe her doxycycline that would help with both bronchitis along with a urinary tract infection. Along with a couple days of steroids. At this time patient's vital signs are stable, there is no reason for admission and hospitalization. Patient was stable and discharged ECG Initial ECG Impression Date: Aug 20, 2022 Departure Impression Primary Impression: Bronchitis Disposition: 01 HOME, SELF-CARE Condition: Stable Departure-Patient Inst. Referrals: SELF,RY TOLEDO (PCP/Family) Primary Care Physician Patient Instructions: Acute Bronchitis, Adult (DC) Add. Discharge Instructions: Please follow-up with your primary care provider in 1 week for recheck All discharge instructions reviewed with patient and/or family. Voiced understanding. Scripts Prednisone (Prednisone) 20 Mg Tab 40 MG PO DAILY, #6 TAB 0 Refills Prov: NARGIS CONRAD DO 08/20/22 Doxycycline Hyclate (Doxycycline Hyclate) 100 Mg Tablet 100 MG PO BID, #20 TAB 0 Refills Prov: NARGIS CONRAD DO 08/20/22 NARGIS CONRAD DO Aug 20, 2022 14:02
[2022-08-20 14:19] LABS: BASOPHILS # (AUTO) 0.1 10^3/uL (0.0-0.1); BASOPHILS % (AUTO) 1 % (0-10); EOSINOPHILS # (AUTO) 0.3 10^3/uL (0.0-0.3); EOSINOPHILS % (AUTO) 4 % (0-10); HEMATOCRIT 36 % (35-52); HEMOGLOBIN 11.6 g/dL (11.5-16.0); LYMPHOCYTES # (AUTO) 2.7 10^3/uL (1.0-4.0); LYMPHOCYTES % (AUTO) 35 % (12-44); MEAN CORPUSCULAR HEMOGLOBIN 29 pg (25-34); MEAN CORPUSCULAR HGB CONC 32 g/dL (32-36); MEAN CORPUSCULAR VOLUME 90 fL (80-99); MEAN PLATELET VOLUME 8.8 fL (9.0-12.2); MONOCYTES # (AUTO) 0.7 10^3/uL (0.0-1.0); MONOCYTES % (AUTO) 9 % (0-12); NEUTROPHILS # (AUTO) 3.7 10^3/uL (1.8-7.8); NEUTROPHILS % (AUTO) 49 % (42-75); PLATELET COUNT 412 10^3/uL (130-400); WHITE BLOOD COUNT 7.6 10^3/uL (4.3-11.0)
[2022-08-20 14:45] LABS: ALBUMIN 4.4 GM/DL (3.2-4.5); BILIRUBIN,TOTAL 0.4 MG/DL (0.1-1.0); CREATININE SERUM 1.3 MG/DL (0.60-1.30); MAGNESIUM 2.2 MG/DL (1.6-2.4); POTASSIUM 4.8 MMOL/L (3.6-5.0); TOTAL PROTEIN 8.1 GM/DL (6.4-8.2)
[2022-08-20] MEDS ORDERED: PRD20T PO (15:12)
[2022-08-20] MEDS ORDERED: DOXY100T2 PO (15:12)
--- NOTE | 2022-08-20 15:34 | Diagnostic Imaging Report ---
INDICATION: Cough. Comparison is made with prior exam of 11/18/2021. FINDINGS: There is cardiomegaly. There is some patchy bibasilar scarring. There is no pleural effusion or pneumothorax. Mediastinum unremarkable. IMPRESSION: Chronic-appearing interstitial scarring lung bases left greater than right. Cardiomegaly. Dictated by: Dictated on workstation # [id number]
== END 2022-08-20 15:15 | disposition home or self-care (01) ==
LOC: EDUNIT# 13:44 → ER FS 13:45
DX: J40 Bronchitis, not specified as acute or chronic (principal); Z20.822 Contact with and (suspected) exposure to COVID-19; Z28.310 Unvaccinated for COVID-19
CPT/HCPCS: 36415; 71046; 80053; 83735; 85025; 86141; 87636